=== PATIENT | male | born 1960 | race Caucasian/White ===

== ENCOUNTER 2024-09-17 20:10 | Inpatient (IN) ==
[2024-09-17] MEDS: HYDROmorphone INJ 1 MG/ML SYRINGE IV STA (20:32)
[2024-09-17] MEDS: diphenhydrAMINE 50 MG/ML VIAL IV STA (20:32)
[2024-09-17] MEDS: ONDANSETRON INJ 2 MG/ML 2 ML VIAL IV STA (20:32)
[2024-09-17] MEDS: SODIUM CHLORIDE 0.9% 500 ML IV STA (20:35)
--- NOTE | 2024-09-17 20:36 | Emergency Department Note ---
Impression & Plan Diffuse abdominal pain, Diverticulitis, Acute urinary retention, Leukocytosis ED Provider Note NAME: KISHAN GRANT AGE: 64 SEX: M : 1960 ARRIVES VIA: Walk-In INFORMANT: [Patient] ED PROVIDER(S): [Rafy Bryant MD] CHIEF COMPLAINT: Abdominal pain HISTORY OF PRESENT ILLNESS: The patient is a 64-year-old male who states that he had his first chemotherapy 2 days ago. This morning, at 3 AM, 18 hours ago, he awoke with abdominal pain that has been persistent all day. It hurts to move or take a breath. No fever. No vomiting. He cannot recall having pain like this previously. There has been no trauma. PMHx/PSHx/Social Hx: See Below PHYSICAL EXAM: GENERAL: Patient is in moderate distress from pain. HEENT: No acute trauma, normocephalic atraumatic, mucous membranes moist, no nasal congestion. NECK: No stridor, no adenopathy, no meningismus, trachea is midline. LUNGS: Clear to auscultation bilaterally, no wheeze, no rhonchi, breath sounds equal. Taking shallow breaths, increased respiratory rate. HEART: Without murmurs gallops or rubs, regular rate and rhythm. ABDOMEN: Firm abdomen that is markedly tender diffusely. No distention. EXTREMITIES: No cyanosis, full range of motion of all the joints without pain or difficulty. NEUROLOGIC: Oriented x 3, no acute motor or sensory deficits, no focal weakness. SKIN: No jaundice, no diaphoresis. DIFFERENTIAL DIAGNOSIS: Peritonitis, bowel perforation, bowel obstruction, chemotherapy reaction, bowel ischemia, among others. EMERGENCY DEPARTMENT PROCEDURES: MEDICAL DECISION MAKING: There is a significant leukocytosis with a white blood cell count of 22,000. This of course could be consistent with infection. There was a normal hemoglobin and platelet count. No coagulopathy. No acute renal failure. Lactic acid level was elevated at 2.9, this could be consistent with dehydration or potentially, bowel ischemia. No concerning liver enzyme elevation. ECG showed a sinus rhythm, no ST elevation. Cardiac enzyme testing x 1 is slightly elevated. This troponin elevation could be secondary to cardiac injury or potentially mismatch given his presentation. No evidence for pancreatitis. Urinalysis did not show findings of infection. Chest x-ray did not show free air or pneumonia. Abdominal and pelvis CT shows diverticulitis with a markedly distended bladder. No bowel perforation, no bowel obstruction. On exam, the patient was quite uncomfortable. Patient was aggressively managed. The nursing staff called me to see him straightaway once he was placed in the room. Patient received IV Zosyn as antibiotic therapy. He was given IV saline for hydration. He received IV Zofran for nausea. He was given IV Dilaudid for pain control. He received IV Benadryl. Given the bladder distention, a Tong catheter was placed. The patient did feel some improvement with the Tong catheter placement. He still had discomfort across the abdomen but was certainly more comfortable. The patient requires a hospital stay. He has diverticulitis, he has a very high white blood cell count, he was retaining urine and seems quite uncomfortable. Admission with IV antibiotic therapy is warranted. I spoke with the patient and case management, the on-call hospitalist was consulted. Prior/Outside records/notes reviewed: None ECG per my interpretation: Indication was abdominal pain. The ECG shows a normal sinus rhythm with a rate of 80. There is diffuse artifact. There is no ST elevation, no PVCs, the QTc is 431. Continuous Cardiac Monitoring per my interpretation: An order was placed for continuous cardiac monitoring. The monitor shows a rate of 89 with normal sinus rhythm. Imaging/x-ray results per my interpretation: Chest x-ray does not show free air or pneumonia. Chronic Medical/Social conditions affecting care: On chemotherapy. Care/Management discussed with: Case management, the on-call hospitalist. Level of care consideration(s): After review of the information above and other included data: --I believe the patient requires escalation of care to admission DISPOSITION: Admission Past Med/Surg History Problem List (Updated 09/18/24 @ 12:42 by Rafy Bryant MD) Leukocytosis (Acute) Acute urinary retention (Acute) Diverticulitis (Acute) Diffuse abdominal pain (Acute) Urinary retention Acute diverticulitis Prediabetes HLD (hyperlipidemia) Adenocarcinoma of lung Chronic bronchitis COPD with emphysema Left upper lobe pulmonary nodule LungRADS 4B, 2.1 cm spiculated Medical History ASCVD (arteriosclerotic cardiovascular disease) mild-mod coronary artery calcifications seen on PET imaging 07/2024 Prediabetes Adenocarcinoma of lung 07/15/24 COPD with emphysema Hx of chronic bronchitis Blood pressure elevated without history of HTN Hx History of alcohol abuse Surgical History (Updated 08/24/24 @ 16:56 by Kelsie Dubose RN) Port-A-Cath in place (08/24/24) Insertion of Access Port with Fluoroscopy(Not Applicable) - Kishan Valle DO, FACS History of bronchoscopy bronchoscopy, EBUS 07/13/24; GA: MAC#3, ETT#8.5, Gr View 1 Hx of colonoscopy 2014 History of tympanoplasty of right ear Vasectomy status History of surgery on lower extremity metal romelia in left leg Family History Mother Breast cancer Grandmother (Paternal) Myocardial infarction Father Diabetes Heart disease Other Colorectal cancer Denies family history of Ovarian cancer Prostate cancer Social History Smoking Status: Former smoker Tobacco Type: Cigarettes Age Started Using Tobacco: 12; Age Quit Using Tobacco: 64; packs per day: 1; Second Hand Exposure: Yes (hx); Do You Dip or Chew Tobacco: Yes; Tobacco Cessation Education Requested by Patient: No Hx Alcohol Use: No Hx Substance Use: Yes Non-Prescribed Medications: Marijuana Preferred Language: Yakut Communication Ability: Effective Visual Impairment: No Limitations Hearing Ability: Hard of Hearing 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 Required: No Beliefs That Will Affect Care: None marital status: Current Living Situation: Alone current occupational status: retired How many Children do You have: 6 Other Information That Helps Us Care for You: No Feels Safe at Home: Yes Safety Concerns: Feels Safe At This Time Diet: regular Diet Comment: regular caffeine: Yes during the past year weight has: remained stable Dental Care, Regularly: No Physical Activity Frequency: Daily Seatbelt Use: always Sunscreen Use: Yes Assistive Devices: Denture - Upper, Denture - Lower and Glasses Allergies Allergies Allergy/AdvReac Type Severity Reaction Status Date / Time strawberry Allergy Mild Rash Verified 09/06/24 13:08 Iodinated Contrast Media AdvReac Intermediate Nausea Verified 09/06/24 13:08 codeine AdvReac Unknown "Sour Verified 09/06/24 13:08 stomach" Home Meds Home Medications Medication Instructions Recorded Confirmed No Known Home Medications 08/17/24 09/17/24 Results & Data (ED) Vital Signs Vital Signs - 24 hr 09/17/24 20:11 09/17/24 20:25 09/17/24 20:27 Temperature 37.1 C Temperature Source Oral Pulse Rate 89 Pulse Rate from SpO2 Sensor Pulse Rhythm Regular Pulse Strength Normal Respiratory Rate 22 Respiratory Effort / Characteristics Non-Labored Spontaneous Respiratory Depth Normal Respiratory Pattern Regular Blood Pressure 185/109 H 194/124 H Blood Pressure Mean 134 149 Blood Pressure Position Sitting Pulse Oximetry 94 93 Oxygen Delivery Method Room Air Room Air Sepsis Recent Fever Within 48 Hours No Sepsis New/Unexplained Change in Mental Status N/A Sepsis Action Taken by Nursing No Action Required 09/17/24 20:30 09/17/24 20:30 09/17/24 21:00 Temperature Temperature Source Pulse Rate 93 H 81 Pulse Rate from SpO2 Sensor 85 81 Pulse Rhythm Pulse Strength Respiratory Rate 41 H 25 H Respiratory Effort / Characteristics Respiratory Depth Respiratory Pattern Blood Pressure 205/134 H Blood Pressure Mean 184 Blood Pressure Position Pulse Oximetry 94 90 Oxygen Delivery Method Sepsis Recent Fever Within 48 Hours Sepsis New/Unexplained Change in Mental Status Sepsis Action Taken by Nursing 09/17/24 21:00 09/17/24 21:00 09/17/24 21:00 Temperature Temperature Source Pulse Rate Pulse Rate from SpO2 Sensor Pulse Rhythm Pulse Strength Respiratory Rate Respiratory Effort / Characteristics Respiratory Depth Respiratory Pattern Blood Pressure 154/101 H 154/101 H 154/101 H Blood Pressure Mean 120 120 120 Blood Pressure Position Pulse Oximetry Oxygen Delivery Method Sepsis Recent Fever Within 48 Hours Sepsis New/Unexplained Change in Mental Status Sepsis Action Taken by Nursing 09/17/24 21:00 09/17/24 21:00 09/17/24 21:27 Temperature Temperature Source Pulse Rate 72 Pulse Rate from SpO2 Sensor 73 Pulse Rhythm Pulse Strength Respiratory Rate 22 Respiratory Effort / Characteristics Respiratory Depth Respiratory Pattern Blood Pressure 154/101 H 154/101 H Blood Pressure Mean 120 120 Blood Pressure Position Pulse Oximetry 97 Oxygen Delivery Method Sepsis Recent Fever Within 48 Hours Sepsis New/Unexplained Change in Mental Status Sepsis Action Taken by Nursing 09/17/24 21:30 09/17/24 21:30 09/17/24 21:57 Temperature Temperature Source Pulse Rate 95 H Pulse Rate from SpO2 Sensor Pulse Rhythm Pulse Strength Respiratory Rate 36 H 32 H Respiratory Effort / Characteristics Respiratory Depth Respiratory Pattern Blood Pressure 141/97 H 141/97 H Blood Pressure Mean 117 117 Blood Pressure Position Pulse Oximetry Oxygen Delivery Method Sepsis Recent Fever Within 48 Hours Sepsis New/Unexplained Change in Mental Status Sepsis Action Taken by Nursing 09/17/24 22:21 Temperature Temperature Source Pulse Rate 86 Pulse Rate from SpO2 Sensor 86 Pulse Rhythm Pulse Strength Respiratory Rate 25 H Respiratory Effort / Characteristics Respiratory Depth Respiratory Pattern Blood Pressure Blood Pressure Mean Blood Pressure Position Pulse Oximetry 96 Oxygen Delivery Method Sepsis Recent Fever Within 48 Hours Sepsis New/Unexplained Change in Mental Status Sepsis Action Taken by Prison Medications Current Medication List: was personally reviewed by me Laboratory Data Attestation: I reviewed the patient's lab results. 09/18/24 09:02 09/18/24 09:02 Lab Results 09/17/24 09/17/24 09/17/24 Range/Units 20:21 20:33 21:06 WBC 22.46 H (4.8-10.8) K/ul RBC 5.51 (4.70-6.10) M/uL Hgb 16.6 (14.0-18.0) g/dl Hct 49.7 (42.0-52.0) % MCV 90.2 (80.0-100.0) fL MCH 30.1 (25.0-34.0) pg MCHC 33.4 (32.0-36.0) g/dL RDW Std Deviation 42.5 (36.4-46.3) fL RDW Coeff of Sindhu 13.0 (11.5-14.5) % Plt Count 304 (130-400) K/uL MPV 10.2 (9.4-12.4) fL Immature Gran % (Auto) 0.5 % Neut % (Auto) 94.4 % Lymph % (Auto) 4.1 % Appling % (Auto) 0.8 % Eos % (Auto) 0.0 % Baso % (Auto) 0.2 % Neut # (Auto) 21.21 H (1.40-6.50) K/uL Lymph # (Auto) 0.91 L (1.20-3.40) K/uL Appling # (Auto) 0.18 (0.11-0.59) K/uL Eos # (Auto) 0.00 (0.00-0.50) K/uL Baso # (Auto) 0.04 (0.00-0.20) K/uL Immature Gran # (Auto) 0.12 (0.01-0.20) K/uL Toxic Vacuolation 1+ PT 10.4 (9.0-12.0) Seconds INR 1.0 (0.9-1.1) APTT 22 (21-31) Seconds PTT Ratio 0.8 Sodium 137 (136-145) mmol/L Potassium 4.2 (3.5-5.1) mmol/L Chloride 100 (98-107) mmol/L Carbon Dioxide 25 (21-32) mmol/L Anion Gap 12 H (3-11) BUN 23 (6-23) mg/dl Creatinine 0.90 (0.6-1.4) mg/dl Est Cr Clr Drug Dosing Not Reportable eGFR 94.19 BUN/Creatinine Ratio 25.6 H (10-20) Glucose 133 H (70-99(Fasting)) mg/dl Lactate 2.9 H* (0.4-2.0) mmol/L Calcium 9.0 (8.6-10.3) mg/dl Total Bilirubin 0.9 (0.2-1.0) mg/dl AST 12 L (13-39) U/L ALT 15 (7-52) U/L Alkaline Phosphatase 56 (34-104) U/L Troponin I High Sens 47.5 H (0-20) pg/ml Total Protein 7.6 (6.0-8.3) gm/dl Albumin 4.3 (3.4-5.0) gm/dl Globulin 3.3 (2.5-4.0) gm/dl Albumin/Globulin Ratio 1.3 (0.9-2) Lipase 10 L (11-82) U/L Urine Color Yellow Urine Appearance Clear (Clear) Urine pH 5.5 (4.5-7.5) Ur Specific Rolfe 1.019 (1.000-1.030) Urine Protein Trace H (Negative) Urine Glucose (UA) Negative (Negative) Urine Ketones Negative (Negative) Urine Blood Negative (Negative) Urine Nitrite Negative (Negative) Urine Bilirubin Negative (Negative) Urine Urobilinogen Negative (Negative) Ur Leukocyte Esterase Negative (Negative) Urine WBC (Auto) 0-5 (0-5) /hpf Urine RBC (Auto) 0-2 (0-2) /hpf U Hyaline Cast (Auto) 0-2 (0-2) /lpf U Epithel Cells (Auto) 0-2 (0-2) /hpf Urine Bacteria (Auto) None Seen (None Seen) Urine Comment 09/17/24 Range/Units 22:13 WBC (4.8-10.8) K/ul RBC (4.70-6.10) M/uL Hgb (14.0-18.0) g/dl Hct (42.0-52.0) % MCV (80.0-100.0) fL MCH (25.0-34.0) pg MCHC (32.0-36.0) g/dL RDW Std Deviation (36.4-46.3) fL RDW Coeff of Sindhu (11.5-14.5) % Plt Count (130-400) K/uL MPV (9.4-12.4) fL Immature Gran % (Auto) % Neut % (Auto) % Lymph % (Auto) % Appling % (Auto) % Eos % (Auto) % Baso % (Auto) % Neut # (Auto) (1.40-6.50) K/uL Lymph # (Auto) (1.20-3.40) K/uL Appling # (Auto) (0.11-0.59) K/uL Eos # (Auto) (0.00-0.50) K/uL Baso # (Auto) (0.00-0.20) K/uL Immature Gran # (Auto) (0.01-0.20) K/uL Toxic Vacuolation PT (9.0-12.0) Seconds INR (0.9-1.1) APTT (21-31) Seconds PTT Ratio Sodium (136-145) mmol/L Potassium (3.5-5.1) mmol/L Chloride (98-107) mmol/L Carbon Dioxide (21-32) mmol/L Anion Gap (3-11) BUN (6-23) mg/dl Creatinine (0.6-1.4) mg/dl Est Cr Clr Drug Dosing eGFR BUN/Creatinine Ratio (10-20) Glucose (70-99(Fasting)) mg/dl Lactate (0.4-2.0) mmol/L Calcium (8.6-10.3) mg/dl Total Bilirubin (0.2-1.0) mg/dl AST (13-39) U/L ALT (7-52) U/L Alkaline Phosphatase (34-104) U/L Troponin I High Sens 52.9 H* (0-20) pg/ml Total Protein (6.0-8.3) gm/dl Albumin (3.4-5.0) gm/dl Globulin (2.5-4.0) gm/dl Albumin/Globulin Ratio (0.9-2) Lipase (11-82) U/L Urine Color Urine Appearance (Clear) Urine pH (4.5-7.5) Ur Specific Rolfe (1.000-1.030) Urine Protein (Negative) Urine Glucose (UA) (Negative) Urine Ketones (Negative) Urine Blood (Negative) Urine Nitrite (Negative) Urine Bilirubin (Negative) Urine Urobilinogen (Negative) Ur Leukocyte Esterase (Negative) Urine WBC (Auto) (0-5) /hpf Urine RBC (Auto) (0-2) /hpf U Hyaline Cast (Auto) (0-2) /lpf U Epithel Cells (Auto) (0-2) /hpf Urine Bacteria (Auto) (None Seen) Urine Comment Administered Medications Enoxaparin Sodium (Enoxaparin Inj 40 Mg/0.4 Ml Syr) 40 mg SQ QAM ANAIS Stop: 10/18/24 08:59 Last Admin: 09/18/24 10:27 Dose: 40 mg Documented By: MELODY Hydromorphone HCl (Hydromorphone Inj 0.5 Mg/0.5 Ml Syr) 0.5 mg IV Q3H PRN PRN Reason: Pain (6,7,8,9,10) Stop: 10/01/24 23:44 Last Admin: 09/18/24 07:47 Dose: 0.5 mg Documented By: Admin: 09/18/24 03:24 Dose: 0.5 mg Documented By: HAVEN Piperacillin Sod/Tazobactam Sod (Zosyn) 4.5 gm in 100 mls @ 25 mls/hr IV Q8H [facility]; Protocol Stop: 09/28/24 03:59 Last Admin: 09/18/24 11:41 Dose: 25 mls/hr Documented By: Infusion: 09/18/24 07:43 Dose: Infused Documented By: Admin: 09/18/24 03:25 Dose: 25 mls/hr Documented By: HAVEN Sodium Chloride (Nss) 1,000 mls @ 75 mls/hr IV .[id number] ANAIS Stop: 09/19/24 11:29 Last Admin: 09/18/24 11:41 Dose: 75 mls/hr Documented By: MELDOY Tamsulosin HCl (Tamsulosin Hcl 0.4 Mg Cap) 0.4 mg PO QAM ANAIS Stop: 10/18/24 08:59 Last Admin: 09/18/24 10:28 Dose: 0.4 mg Documented By: MELODY Discontinued Medications Diphenhydramine HCl (Diphenhydramine 50 Mg/Ml Vial) 25 mg IV NOW STA Stop: 09/17/24 20:27 Last Admin: 09/17/24 20:32 Dose: 25 mg Documented By: WEST Hydromorphone HCl (Hydromorphone Inj 1 Mg/Ml Syringe) 1 mg IV NOW STA Stop: 09/17/24 20:27 Last Admin: 09/17/24 20:32 Dose: 1 mg Documented By: WEST Hydromorphone HCl (Hydromorphone Inj 0.5 Mg/0.5 Ml Syr) 0.5 mg IV Q15M PRN PRN Reason: Pain Stop: 10/01/24 20:25 Last Admin: 09/17/24 23:23 Dose: 0.5 mg Documented By: Admin: 09/17/24 21:47 Dose: 0.5 mg Documented By: WEST Sodium Chloride (Nss) 500 mls @ 999 mls/hr IV .Q31M STA Stop: 09/17/24 20:56 Last Infusion: 09/17/24 21:28 Dose: Infused Documented By: Admin: 09/17/24 20:35 Dose: 999 mls/hr Documented By: WEST Piperacillin Sod/Tazobactam Sod (Zosyn) 4.5 gm in 100 mls @ 200 mls/hr IV NOW ONE Stop: 09/17/24 21:30 Last Infusion: 09/17/24 23:07 Dose: Infused Documented By: Admin: 09/17/24 22:03 Dose: 200 mls/hr Documented By: WEST Sodium Chloride (Nss) 1,000 mls @ 999 mls/hr IV .Q1H1M ONE Stop: 09/17/24 23:15 Last Infusion: 09/17/24 23:47 Dose: Infused Documented By: Admin: 09/17/24 22:27 Dose: 999 mls/hr Documented By: WEST Lactated Ringer's (Lr) 1,000 mls @ 125 mls/hr IV .Q8H ANAIS Stop: 09/19/24 00:14 Last Infusion: 09/18/24 11:45 Dose: Infused Documented By: Admin: 09/18/24 07:47 Dose: 125 mls/hr Documented By: Infusion: 09/18/24 07:47 Dose: Infused Documented By: Admin: 09/18/24 00:46 Dose: 125 mls/hr Documented By: HAVEN Acetaminophen (Ofirmev) 1,000 mg in 100 mls @ 400 mls/hr IV Q8H PRN PRN Reason: Pain or Fever Stop: 09/20/24 23:44 Last Infusion: 09/18/24 11:01 Dose: Infused Documented By: Admin: 09/18/24 10:38 Dose: 400 mls/hr Documented By: MELODY Lactated Ringer's (Lr) 1,000 mls @ 75 mls/hr IV .[id number] ANAIS Stop: 09/19/24 11:24 Last Admin: 09/18/24 11:45 Dose: Not Given Documented By: MELODY Ioversol (Optiray 320 100ml) 93 ml IV ONCE ONE Stop: 09/17/24 21:37 Last Admin: 09/17/24 21:38 Dose: 93 ml Documented By: KATHY Lidocaine HCl (Lidocaine 2% Jelly 5 Ml Tube) 5 ml EXT NOW ONE Stop: 09/17/24 21:49 Last Admin: 09/17/24 22:03 Dose: 5 ml Documented By: WEST Ondansetron HCl (Ondansetron Inj 2 Mg/Ml 2 Ml Vial) 4 mg IV NOW STA Stop: 09/17/24 20:27 Last Admin: 09/17/24 20:32 Dose: 4 mg Documented By: WEST Discharge Plan Visit Data Chief Complaint: Abdominal Pain Stated Complaint: FIRST ROUND OF CHEMO,ABD PAIN,COLD SWEATS ED Provider: Rafy Bryant Discharge Problem: Diffuse abdominal pain, Diverticulitis, Acute urinary retention, Leukocytosis Patient Disposition: Admitted As Inpatient Condition: Fair Discharge Instructions Interventions: ED Discharge Assessment Last Done: 09/17/24 23:17 Discharge Problem: Leukocytosis Qualifiers: Leukocytosis type: unspecified Qualified Code(s): D72.829 - Elevated white blood cell count, unspecified
[2024-09-17 21:03] LABS: Appearance Urine Clear (Clear); Bacteria Urine Automated None Seen (None Seen); Bilirubin Urine Negative (Negative); Blood Urine Negative (Negative); Cast Urine Automated 0-2 /lpf (0-2); Color Urine Yellow; Epithelial Cell Urine Auto 0-2 /hpf (0-2); Glucose Urine UA Negative (Negative); Ketones Urine Negative (Negative); Leukocyte Esterase Urine Negative (Negative); Nitrite Urine Negative (Negative); Protein Urine Trace (Negative); RBC Urine Automated 0-2 /hpf (0-2); Specific Gravity Urine 1.019 (1.000-1.030); Urobilinogen Urine Negative (Negative); WBC Urine Automated 0-5 /hpf (0-5); pH Urine 5.5 (4.5-7.5)
[2024-09-17 21:05] LABS: Hematocrit (blood only) 49.7 % (42.0-52.0); Hemoglobin 16.6 g/dl (14.0-18.0); Mean Corpuscular Hemoglobin 30.1 pg (25.0-34.0); Mean Corpuscular Hgb Conc 33.4 g/dL (32.0-36.0); Mean Corpuscular Volume 90.2 fL (80.0-100.0); Mean Platelet Volume 10.2 fL (9.4-12.4); Platelet Count 304 K/uL (130-400); RDW Standard Deviation 42.5 fL (36.4-46.3); Red Blood Count 5.51 M/uL (4.70-6.10); White Blood Count 22.46 K/ul (4.8-10.8)
[2024-09-17 21:15] LABS: Alanine Aminotransferase 15 U/L (7-52); Albumin Globulin Ratio 1.3 (0.9-2); Albumin Level 4.3 gm/dl (3.4-5.0); Alkaline Phosphatase 56 U/L (34-104); Anion Gap 12 (3-11); BUN Creatinine Ratio 25.6 (10-20); Blood Urea Nitrogen 23 mg/dl (6-23); Carbon Dioxide 25 mmol/L (21-32); Chloride 100 mmol/L (98-107); Globulin 3.3 gm/dl (2.5-4.0); Glucose 133 mg/dl (70-99(Fasting)); Lipase 10 U/L (11-82); Sodium 137 mmol/L (136-145); Total Protein 7.6 gm/dl (6.0-8.3); Troponin I High Sensitivity 47.5 pg/ml (0-20)
[2024-09-17 21:16] LABS: Partial Thromboplastin Ratio 0.8; Partial Thromboplastin Time 22 Seconds (21-31); Prothrombin Time 10.4 Seconds (9.0-12.0)
[2024-09-17 21:22] LABS: Bilirubin,Total 0.9 mg/dl (0.2-1.0)
[2024-09-17 21:30] LABS: Aspartate Aminotransferase 12 U/L (13-39); Potassium 4.2 mmol/L (3.5-5.1)
[2024-09-17 21:31] LABS: Basophils # (auto) 0.04 K/uL (0.00-0.20); Basophils % (auto) 0.2 %; Immature Granulocytes # (auto) 0.12 K/uL (0.01-0.20); Immature Granulocytes % (auto) 0.5 %; Lymphocytes # (auto) 0.91 K/uL (1.20-3.40); Lymphocytes % (auto) 4.1 %; Monocytes # (auto) 0.18 K/uL (0.11-0.59); Monocytes % (auto) 0.8 %; Neutrophils # (auto) 21.21 K/uL (1.40-6.50); Neutrophils % (auto) 94.4 %; Toxic Vacuolation 1+
[2024-09-17] MEDS: OPTIRAY 320 100ml IV ONE (21:38)
[2024-09-17] MEDS: HYDROmorphone INJ 0.5 MG/0.5 ML SYR IV PRN (21:47)
--- NOTE | 2024-09-17 21:49 | XRay Report ---
Exam(s): XR CXR 1 VIEW EXAM: XR Chest, 1 View CLINICAL HISTORY: Abdominal Pain. TECHNIQUE: Frontal view of the chest. COMPARISON: Chest radiograph 08/24/2024 FINDINGS: Lungs: Low lung volumes accentuate pulmonary markings. Bilateral airspace opacities are present. Pleural space: Small bilateral pleural effusions. No pneumothorax. Heart: Cardiomegaly. Mediastinum: Unremarkable. Normal mediastinal contour. Bones/joints: There are degenerative changes of the spine. No acute fracture. Other findings: Stable right Infusaport. IMPRESSION: 1. Low lung volumes accentuate pulmonary markings. Bilateral airspace opacities may represent atelectasis, pulmonary edema or atypical infection. 2. Small bilateral pleural effusions. 3. Cardiomegaly. Electronically signed by: Nishi Handy MD 09/17/24 21:48 PM
--- NOTE | 2024-09-17 22:02 | CT Scan Report ---
CT of the abdomen pelvis with contrast Technique: Postcontrast axial images of the abdomen pelvis. Coronal and sagittal reformatted images made available for review No comparison Findings: Small bilateral pleural effusions right greater than left 1.2 cm left renal cyst. Solid abdominal organs unremarkable in appearance. 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 Wall thickening and inflammatory changes involving a short segment of sigmoid colon in the left Andrzej pelvis. No pericolonic fluid collections identified on this exam. Marked distention of the urinary bladder. 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
[2024-09-17] MEDS: LIDOCAINE 2% JELLY 5 ML TUBE EXT ONE (22:03)
[2024-09-17] MEDS: PIPERACILLIN/TAZOBACTAM 4.5 GM/100 ML BAG IV ONE (22:03)
[2024-09-17] MEDS: SODIUM CHLORIDE 0.9% 1,000 ML IV ONE (22:27)
--- NOTE | 2024-09-17 22:27 | History & Physical Report ---
Date of Service September 17, 2024 Assessment & Plan (1) Acute diverticulitis: (2) Adenocarcinoma of lung: (3) Urinary retention: Plan 64 year old male presents to the ER with abdominal pain #Acute diverticulitis No colonoscopy for 15 years therefore should follow up for this in 4-6 weeks NPO, IV Zosyn, IV fluids Acetaminophen 1st line for pain, Dilaudid 2nd line #Acute urinary retention CT taken after voiding in the ER, 900ml retention in sherman Continue sherman catheter, tamsulosin 0.4mg PO QAM Follow up with urology as outpatient for trial without catheter VTE Prophylaxis - Lovenox 40mg SQ daily Disposition - admit to med/surg Admission and Anticipated Discharge Date Admission Date: September 17, 2024 History of Present Illness Chief Complaint: Abdominal pain Primary Care Provider: DO Jorge Zuniga Willard is a 64 year old male with pete adenocarcinoma on chemotherapy who presents to the ER with abdominal pain. Symptoms started 3:30am yesterday morning with lower abdominal pain mostly on the left side. No radiation. Severity currently 5-6/10. 10/10 on arrival to the ER. Associated diaphoresis today. No nausea or vomiting. He has had no prior episodes of diverticulitis previously. Last colonoscopy 15 years ago. He is currently on chemotherapy for his lung adenocarcinoma although unclear what the medications are. [facility] is under [facility]. Allergies Allergy/AdvReac Type Severity Reaction Status Date / Time strawberry Allergy Mild Rash Verified 09/06/24 13:08 Iodinated Contrast Media AdvReac Intermediate Nausea Verified 09/06/24 13:08 codeine AdvReac Unknown "Sour Verified 09/06/24 13:08 stomach" Home Medications Medication Instructions Recorded Confirmed Type No Known Home Medications 08/17/24 09/17/24 History Past Med/Surg History Problem List (Updated 09/17/24 @ 23:08 by Suukmar Guerra MD) Urinary retention Acute diverticulitis Prediabetes HLD (hyperlipidemia) Adenocarcinoma of lung Chronic bronchitis COPD with emphysema Left upper lobe pulmonary nodule LungRADS 4B, 2.1 cm spiculated Medical History (Updated 09/17/24 @ 23:08 by Sukumar Guerra MD) ASCVD (arteriosclerotic cardiovascular disease) mild-mod coronary artery calcifications seen on PET imaging 07/2024 Prediabetes Adenocarcinoma of lung 07/15/24 COPD with emphysema Hx of chronic bronchitis Blood pressure elevated without history of HTN Hx History of alcohol abuse Surgical History (Updated 08/24/24 @ 16:56 by Kelsie Dubose, RN) Port-A-Cath in place (08/24/24) Insertion of Access Port with Fluoroscopy(Not Applicable) - Jorge Valle DO, FACS History of bronchoscopy bronchoscopy, EBUS 07/13/24; GA: MAC#3, ETT#8.5, Gr View 1 Hx of colonoscopy 2014 History of tympanoplasty of right ear Vasectomy status History of surgery on lower extremity metal romelia in left leg Family History Mother Breast cancer Grandmother (Paternal) Myocardial infarction Father Diabetes Heart disease Other Colorectal cancer Denies family history of Ovarian cancer Prostate cancer Social History Smoking Status: Former smoker Tobacco Type: Cigarettes Age Started Using Tobacco: 12; Age Quit Using Tobacco: 64; packs per day: 1; Second Hand Exposure: Yes (hx); Do You Dip or Chew Tobacco: Yes; Tobacco Cessation Education Requested by Patient: No Hx Alcohol Use: No Hx Substance Use: Yes Non-Prescribed Medications: Marijuana Preferred Language: Pashto Communication Ability: Effective Visual Impairment: No Limitations Hearing Ability: Hard of Hearing Business Reporting Developer Required: No Beliefs That Will Affect Care: None marital status: Current Living Situation: Alone current occupational status: retired How many Children do You have: 6 Other Information That Helps Us Care for You: No Feels Safe at Home: Yes Safety Concerns: Feels Safe At This Time Diet: regular Diet Comment: regular caffeine: Yes during the past year weight has: remained stable Dental Care, Regularly: No Physical Activity Frequency: Daily Seatbelt Use: always Sunscreen Use: Yes Assistive Devices: Denture - Upper, Denture - Lower and Glasses Review of Systems Review of Systems: All systems reviewed & are unremarkable except as noted in HPI & below Physical Exam Constitutional: well developed and + acute distress (abdominal pain); + not well nourished Respiratory: normal respiratory effort, lungs clear to auscultation Cardiovascular: Rate/Rhythm: regular rhythm and + tachycardic Heart Sounds: no murmur Extremities: normal capillary refill; no calf tenderness Gastrointestinal (Abdomen): Inspection/Auscultation: abdomen normal to inspection and + abdomen distended Percussion/Palpation: + abdomen tender (generalized), + guarding and abdomen soft; abdomen not rigid Neurologic: moves all extremities and awake; not confused Psychiatric: A+Ox3, euthymic affect Results & Data Results & Data Vital Signs (Past 12 Hours) Vital Signs Temp Pulse Resp BP Pulse Ox O2 Del Method 09/17/24 21:30 36 H 141/97 H 09/17/24 21:30 141/97 H 09/17/24 21:27 72 22 97 09/17/24 21:00 154/101 H 09/17/24 21:00 154/101 H 09/17/24 21:00 154/101 H 09/17/24 21:00 154/101 H 09/17/24 21:00 154/101 H 09/17/24 21:00 81 25 H 90 09/17/24 20:30 205/134 H 09/17/24 20:30 93 H 41 H 94 09/17/24 20:27 93 Room Air 09/17/24 20:25 194/124 H 09/17/24 20:11 37.1 C 89 22 185/109 H 94 Room Air Laboratory Results Abnormal lab results 09/17/24 09/17/24 09/17/24 Range/Units 20:21 20:33 21:06 WBC 22.46 H (4.8-10.8) K/ul Neut # (Auto) 21.21 H (1.40-6.50) K/uL Lymph # (Auto) 0.91 L (1.20-3.40) K/uL Anion Gap 12 H (3-11) BUN/Creatinine Ratio 25.6 H (10-20) Glucose 133 H (70-99(Fasting)) mg/dl Lactate 2.9 H* (0.4-2.0) mmol/L AST 12 L (13-39) U/L Troponin I High Sens 47.5 H (0-20) pg/ml Lipase 10 L (11-82) U/L Urine Protein Trace H (Negative) 09/17/24 Range/Units 22:13 WBC (4.8-10.8) K/ul Neut # (Auto) (1.40-6.50) K/uL Lymph # (Auto) (1.20-3.40) K/uL Anion Gap (3-11) BUN/Creatinine Ratio (10-20) Glucose (70-99(Fasting)) mg/dl Lactate (0.4-2.0) mmol/L AST (13-39) U/L Troponin I High Sens 52.9 H* (0-20) pg/ml Lipase (11-82) U/L Urine Protein (Negative) Diagnostic Findings XR Chest, 1 View CLINICAL HISTORY: Abdominal Pain. TECHNIQUE: Frontal view of the chest. COMPARISON: Chest radiograph 08/24/2024 FINDINGS: Lungs: Low lung volumes accentuate pulmonary markings. Bilateral airspace opacities are present. Pleural space: Small bilateral pleural effusions. No pneumothorax. Heart: Cardiomegaly. Mediastinum: Unremarkable. Normal mediastinal contour. Bones/joints: There are degenerative changes of the spine. No acute fracture. Other findings: Stable right Infusaport. IMPRESSION: 1. Low lung volumes accentuate pulmonary markings. Bilateral airspace opacities may represent atelectasis, pulmonary edema or atypical infection. 2. Small bilateral pleural effusions. 3. Cardiomegaly. CT of the abdomen pelvis with contrast Technique: Postcontrast axial images of the abdomen pelvis. Coronal and sagittal reformatted images made available for review No comparison Findings: Small bilateral pleural effusions right greater than left 1.2 cm left renal cyst. Solid abdominal organs unremarkable in appearance. 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 Wall thickening and inflammatory changes involving a short segment of sigmoid colon in the left Andrzej pelvis. No pericolonic fluid collections identified on this exam. Marked distention of the urinary bladder. 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 Markedly distended urinary bladder Medications Administered ER Medications Given: Normal saline 500ml bolus Diphenhydramine 25mg IV Ondansetron 4mg IV Dilaudid 1mg IV Dilaudid 0.5mg x2 Zosyn 4.5mg IV Normal saline 1000ml bolus ECG Rate (beats per minute): 80 Rhythm: normal sinus Comparison ECG Date: from (July 13, 2024) Change: no significant change Code Status & VTE Plan Code Status Full VTE Prophylaxis Plan VTE Prophylaxis will be ordered: Yes PG Care Time/CCT Total # of Minutes Spent Total Time Spent with Patient: Total time spent is greater than 50% in coordination of care (as documented) at patient's floor/unit and/or counseling patient: Coding Level of Care Code 91409 INT INP/OBS CARE 3/75MIN Diagnoses Acute diverticulitis K57.92 Adenocarcinoma of lung C34.90 Urinary retention R33.9
[2024-09-17] MEDS ORDERED: HYDROmorphone INJ 0.5 MG/0.5 ML SYR IV PRN (23:45)
[2024-09-18] MEDS: LACTATED RINGER'S 1,000 ML IV SCH ×2 (00:46→11:45)
[2024-09-18] MEDS: HYDROmorphone INJ 0.5 MG/0.5 ML SYR IV PRN (03:24)
[2024-09-18] MEDS: PIPERACILLIN/TAZOBACTAM 4.5 GM/100 ML BAG IV SCH (03:25)
[2024-09-18 09:16] LABS: Hematocrit (blood only) 44.4 % (42.0-52.0); Hemoglobin 14.7 g/dl (14.0-18.0); Mean Corpuscular Hemoglobin 30.2 pg (25.0-34.0); Mean Corpuscular Hgb Conc 33.1 g/dL (32.0-36.0); Mean Corpuscular Volume 91.2 fL (80.0-100.0); Platelet Count 192 K/uL (130-400); RDW Coefficient of Variation 13.2 % (11.5-14.5); RDW Standard Deviation 43.5 fL (36.4-46.3); Red Blood Count 4.87 M/uL (4.70-6.10); White Blood Count 17.66 K/ul (4.8-10.8)
[2024-09-18 09:44] LABS: Basophils # (auto) 0.04 K/uL (0.00-0.20); Basophils % (auto) 0.2 %; Immature Granulocytes % (auto) 0.6 %; Lymphocytes # (auto) 0.83 K/uL (1.20-3.40); Lymphocytes % (auto) 4.7 %; Monocytes # (auto) 0.04 K/uL (0.11-0.59); Monocytes % (auto) 0.2 %; Neutrophils # (auto) 16.65 K/uL (1.40-6.50); Neutrophils % (auto) 94.3 %; Toxic Vacuolation 1+
[2024-09-18 09:52] LABS: BUN Creatinine Ratio 17.8 (10-20); C Reactive Protein 23.59 mg/dl (0-0.5); Calcium 8.5 mg/dl (8.6-10.3); Creatinine Clr Calc Pharmacy 59.7 ml/min; Magnesium 1.9 mg/dl (1.7-2.4); Potassium 5.1 mmol/L (3.5-5.1); Troponin I High Sensitivity 39.9 pg/ml (0-20)
[2024-09-18] MEDS: ENOXAPARIN INJ 40 MG/0.4 ML SYR SQ SCH (10:27)
[2024-09-18] MEDS: TAMSULOSIN HCL 0.4 MG CAP PO SCH (10:28)
[2024-09-18] MEDS: ACETAMINOPHEN 1,000 MG/100 ML VIAL IV PRN (10:38)
--- NOTE | 2024-09-18 11:07 | Hospitalist Progress Note ---
Date of Service September 18, 2024 Assessment & Plan (1) Acute diverticulitis: (2) Adenocarcinoma of lung: (3) Urinary retention: Plan 64 year old male with past medical history of lung adenocarcinoma started on chemotherapy recently, prediabetes, history of tobacco use disorder quit in July 2024 presents to the ED with lower abdominal pain, CT scan showing sigmoid diverticulitis, went into urinary retention and required Sherman catheter on admission. #Sepsis secondary to diverticulitis, present on admission #Acute diverticulitis No colonoscopy for 15 years therefore should follow up for this in 4-6 weeks with PCP for referral to GI White count improving Lactic acid levels improving Continue IV fluid hydration Continue IV Zosyn (day 1) Analgesia with Tylenol as needed and Dilaudid IV as needed for severe pain Start full liquid diet, advance as tolerated #Elevated troponin Likely demand ischemia in setting of sepsis Troponin improving EKG without any ischemic changes Patient without any chest pain or shortness of breath Check 2D echo for any wall motion abnormality #Acute urinary retention CT taken after voiding in the ER, 900ml retention in sherman Continue sherman catheter, tamsulosin 0.4mg PO QAM Follow up with urology as outpatient for trial without catheter #Prediabetes A1c in July 2024 is 6.1 Check repeat A1c Outpatient follow-up with PCP on discharge CODE STATUS: Full code DVT prophylaxis: Lovenox 40 mg subcutaneous daily Disposition: Based on clinical improvement, PT/OT recommendations, improvement in white count likely in the next 48 to 72 hours Care plan discussed with patient, nursing staff and donavan Guerra updated at bedside Admission and Anticipated Discharge Date Admission Date: September 17, 2024 Subjective Patient seen and examined H&P reviewed Labs reviewed Radiology reviewed Daughter Mari at bedside Patient states he recently started chemotherapy and received first round of chemotherapy few days ago Since then experiencing lower abdominal pain, denies any nausea, vomiting or diarrhea. Denies any fever or chills Denies any chest pain or shortness of breath. Patient states he quit tobacco smoking in July 2024 and since then has been having a dry cough with clear to white sputum production Physical Exam Physical Exam: General: No acute distress Psych: Awake and alert HEENT: Anicteric sclera, moist oral mucosa CVS: Regular rate and rhythm Lungs: Bilateral air entry, no wheezing noted Abdomen: Soft, mild distention, tender to palpation lower abdomen, no rebound, no guarding Ext: No lower extremity edema, no calf tenderness Neuro: No focal motor deficits noted : Indwelling Sherman catheter noted Results & Data Results & Data Vital Signs (Past 12 Hours) Vital Signs Temp Pulse Resp BP Pulse Ox O2 Del Method O2 Flow Rate 09/18/24 09:11 Nasal Cannula 2 09/18/24 07:44 37 C 70 18 151/87 H 97 Room Air 09/18/24 00:13 Nasal Cannula 2 09/18/24 00:13 36.7 C 94 H 20 145/92 H 96 Nasal Cannula 2 09/18/24 00:12 145/92 H 09/18/24 00:06 36.7 C 20 178/108 H 96 Nasal Cannula 2 Laboratory Results 09/18/24 09/18/24 09/17/24 09:47 09:02 22:13 WBC 17.66 H RBC 4.87 Hgb 14.7 Hct 44.4 MCV 91.2 MCH 30.2 MCHC 33.1 RDW Std Deviation 43.5 RDW Coeff of Sindhu 13.2 Plt Count 192 MPV 10.0 Immature Gran % (Auto) 0.6 Neut % (Auto) 94.3 Lymph % (Auto) 4.7 [place] % (Auto) 0.2 Eos % (Auto) 0.0 Baso % (Auto) 0.2 Neut # (Auto) 16.65 H Lymph # (Auto) 0.83 L [place] # (Auto) 0.04 L Eos # (Auto) 0.00 Baso # (Auto) 0.04 Immature Gran # (Auto) 0.10 Toxic Vacuolation 1+ PT INR APTT PTT Ratio Sodium 133 L Potassium 5.1 D Chloride 98 Carbon Dioxide 31 Anion Gap 4 BUN 19 Creatinine 1.07 Est Cr Clr Drug Dosing 59.7 eGFR 76.53 BUN/Creatinine Ratio 17.8 Glucose 124 H Lactate 1.5 Calcium 8.5 L Magnesium 1.9 Total Bilirubin AST ALT Alkaline Phosphatase Troponin I High Sens 39.9 H D 52.9 H* C-Reactive Protein 23.59 H Total Protein Albumin Globulin Albumin/Globulin Ratio Lipase Urine Color Urine Appearance Urine pH Ur Specific [place] Urine Protein Urine Glucose (UA) Urine Ketones Urine Blood Urine Nitrite Urine Bilirubin Urine Urobilinogen Ur Leukocyte Esterase Urine WBC (Auto) Urine RBC (Auto) U Hyaline Cast (Auto) U Epithel Cells (Auto) Urine Bacteria (Auto) Urine Comment 09/17/24 09/17/24 09/17/24 21:06 20:33 20:21 WBC 22.46 H RBC 5.51 Hgb 16.6 Hct 49.7 MCV 90.2 MCH 30.1 MCHC 33.4 RDW Std Deviation 42.5 RDW Coeff of Sindhu 13.0 Plt Count 304 MPV 10.2 Immature Gran % (Auto) 0.5 Neut % (Auto) 94.4 Lymph % (Auto) 4.1 [place] % (Auto) 0.8 Eos % (Auto) 0.0 Baso % (Auto) 0.2 Neut # (Auto) 21.21 H Lymph # (Auto) 0.91 L [place] # (Auto) 0.18 Eos # (Auto) 0.00 Baso # (Auto) 0.04 Immature Gran # (Auto) 0.12 Toxic Vacuolation 1+ PT 10.4 INR 1.0 APTT 22 PTT Ratio 0.8 Sodium 137 Potassium 4.2 Chloride 100 Carbon Dioxide 25 Anion Gap 12 H BUN 23 Creatinine 0.90 Est Cr Clr Drug Dosing Not Reportable eGFR 94.19 BUN/Creatinine Ratio 25.6 H Glucose 133 H Lactate 2.9 H* Calcium 9.0 Magnesium Total Bilirubin 0.9 AST 12 L ALT 15 Alkaline Phosphatase 56 Troponin I High Sens 47.5 H C-Reactive Protein Total Protein 7.6 Albumin 4.3 Globulin 3.3 Albumin/Globulin Ratio 1.3 Lipase 10 L Urine Color Yellow Urine Appearance Clear Urine pH 5.5 Ur Specific [place] 1.019 Urine Protein Trace H Urine Glucose (UA) Negative Urine Ketones Negative Urine Blood Negative Urine Nitrite Negative Urine Bilirubin Negative Urine Urobilinogen Negative Ur Leukocyte Esterase Negative Urine WBC (Auto) 0-5 Urine RBC (Auto) 0-2 U Hyaline Cast (Auto) 0-2 U Epithel Cells (Auto) 0-2 Urine Bacteria (Auto) None Seen Urine Comment Diagnostic Findings Abdomen/Pelvis CT 09/17/24 20:27 CT of the abdomen pelvis with contrast Technique: Postcontrast axial images of the abdomen pelvis. Coronal and sagittal reformatted images made available for review No comparison Findings: Small bilateral pleural effusions right greater than left 1.2 cm left renal cyst. Solid abdominal organs unremarkable in appearance. 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 Wall thickening and inflammatory changes involving a short segment of sigmoid colon in the left Andrzej pelvis. No pericolonic fluid collections identified on this exam. Marked distention of the urinary bladder. 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 TECHNIQUE: Frontal view of the chest. COMPARISON: Chest radiograph 08/24/2024 FINDINGS: Lungs: Low lung volumes accentuate pulmonary markings. Bilateral airspace opacities are present. Pleural space: Small bilateral pleural effusions. No pneumothorax. Heart: Cardiomegaly. Mediastinum: Unremarkable. Normal mediastinal contour. Bones/joints: There are degenerative changes of the spine. No acute fracture. Other findings: Stable right Infusaport. IMPRESSION: 1. Low lung volumes accentuate pulmonary markings. Bilateral airspace opacities may represent atelectasis, pulmonary edema or atypical infection. 2. Small bilateral pleural effusions. 3. Cardiomegaly. Electronically signed by: Nishi Handy MD 09/17/24 21:48 PM PG Care Time/CCT Total # of Minutes Spent Total Time Spent with Patient: Total time spent is greater than 50% in coordination of care (as documented) at patient's floor/unit and/or counseling patient: Coding Level of Care Code 32771 SUB INP/OBS CARE 3/50MIN Diagnoses Acute diverticulitis K57.92 Adenocarcinoma of lung C34.90 Urinary retention R33.9
--- NOTE | 2024-09-18 11:38 | XCELERA ---
[id number]
[2024-09-18] MEDS: SODIUM CHLORIDE 0.9% 1,000 ML IV SCH (11:41)
--- NOTE | 2024-09-18 11:55 | Electrocardiogram Report ---
Test Reason : Blood Pressure : */* mmHG Vent. Rate : 80 BPM Atrial Rate : 80 BPM P-R Int : 122 ms QRS Dur : 86 ms QT Int : 374 ms P-R-T Axes : 46 40 47 degrees QTcB Int : 431 ms Normal sinus rhythm with sinus arrhythmia Normal ECG When compared with ECG of 13-Jul-2024 06:40, Vent. rate has increased by 28 bpm Confirmed by Tavo Barnett ([id number]) on 09/18/2024 11:55:20 AM Referred By: REFERRED SELF Confirmed By: Tavo Barnett
[2024-09-18] MEDS: ONDANSETRON INJ 2 MG/ML 2 ML VIAL IV PRN (15:37)
[2024-09-19 07:42] LABS: BUN Creatinine Ratio 22.9 (10-20); Calcium 8.4 mg/dl (8.6-10.3); Magnesium 1.9 mg/dl (1.7-2.4); Potassium 3.3 mmol/L (3.5-5.1)
[2024-09-19 07:48] LABS: Hematocrit (blood only) 40.3 % (42.0-52.0); Hemoglobin 13.8 g/dl (14.0-18.0); Mean Corpuscular Hemoglobin 30.3 pg (25.0-34.0); Mean Corpuscular Hgb Conc 34.2 g/dL (32.0-36.0); Mean Corpuscular Volume 88.6 fL (80.0-100.0); Mean Platelet Volume 10.7 fL (9.4-12.4); Platelet Count 164 K/uL (130-400); RDW Coefficient of Variation 13.1 % (11.5-14.5); RDW Standard Deviation 42.3 fL (36.4-46.3); Red Blood Count 4.55 M/uL (4.70-6.10); White Blood Count 7.64 K/ul (4.8-10.8)
[2024-09-19 08:35] LABS: ALC (manual) 0.61 K/uL (1.2-3.4); ANC (manual) 7.03 K/uL (1.4-6.5); Lymphocytes # (manual) 0.61 K/uL (1.2-3.4); Lymphocytes % (manual) 8 %; Neutrophils # (manual) 7.03 K/uL (1.40-6.50); Neutrophils % (manual) 92 %
[2024-09-19 08:37] LABS: Estimated Average Glucose 140 mg/dl; Hemoglobin A1C 6.5 % (4.5-5.6)
[2024-09-19] MEDS: POTASSIUM CHLORIDE CRTAB 20 MEQ TABCR PO STA (09:24)
--- NOTE | 2024-09-19 11:16 | Hospitalist Progress Note ---
Date of Service September 19, 2024 Assessment & Plan (1) Acute diverticulitis: (2) Adenocarcinoma of lung: (3) Urinary retention: Plan 64 year old male with past medical history of lung adenocarcinoma started on chemotherapy recently, prediabetes, history of tobacco use disorder quit in July 2024 presents to the ED with lower abdominal pain, CT scan showing sigmoid diverticulitis, went into urinary retention and required Sherman catheter on admission. #Sepsis secondary to diverticulitis, present on admission #Acute diverticulitis No colonoscopy for 15 years therefore should follow up for this in 4-6 weeks with PCP for referral to GI White count improving Lactic acid levels have normalized Continue IV fluid hydration Continue IV Zosyn (day 2) Analgesia with Tylenol as needed and Dilaudid IV as needed for severe pain Advance diet to regular diet Check abdominal x-ray since bili appears slightly distended today #Elevated troponin Likely demand ischemia in setting of sepsis Troponin improving EKG without any ischemic changes Patient without any chest pain or shortness of breath 2D echo from 09/18/2024 shows EF of 60 to 65%, no regional wall motion abnormality, no significant valvular pathology. #Acute urinary retention CT taken after voiding in the ER, 900ml retention in sherman Continue sherman catheter, tamsulosin 0.4mg PO QAM Follow up with urology as outpatient for trial without catheter #Prediabetes/new diagnosis of diabetes Previously A1c 6.1 A1c 6.5 Outpatient follow-up with PCP on discharge #Hypokalemia Potassium replacement Monitor levels CODE STATUS: Full code DVT prophylaxis: Lovenox 40 mg subcutaneous daily Disposition: PT recommending short-term rehab on discharge, OT recommending home health services. Likely discharge in the next 48 to 72 hours based on clinical improvement Care plan discussed with patient, nursing staff Admission and Anticipated Discharge Date Admission Date: September 17, 2024 Physical Exam Physical Exam: General: No acute distress Psych: Awake and alert HEENT: Anicteric sclera, moist oral mucosa CVS: Regular rate and rhythm Lungs: Bilateral air entry, no wheezing noted Abdomen: Soft, mild distention, tender to palpation lower abdomen, no rebound, no guarding Ext: No lower extremity edema, no calf tenderness Neuro: No focal motor deficits noted : Indwelling Sherman catheter noted Results & Data Results & Data Vital Signs (Past 12 Hours) Vital Signs Temp Pulse Resp BP Pulse Ox O2 Del Method 09/19/24 08:03 70 09/19/24 07:10 37.2 C 20 145/88 H 90 Room Air Laboratory Results 09/19/24 06:32 WBC 7.64 D RBC 4.55 L Hgb 13.8 L Hct 40.3 L MCV 88.6 MCH 30.3 MCHC 34.2 RDW Std Deviation 42.3 RDW Coeff of Sindhu 13.1 Plt Count 164 MPV 10.7 Neutrophils % (Manual) 92 Lymphocytes % (Manual) 8 Neutrophils # (Manual) 7.03 H Total Absolute Neuts 7.03 H Lymphocytes # (Manual) 0.61 L Total Abs Lymphocytes 0.61 L Sodium 131 L Potassium 3.3 L D Chloride 96 L Carbon Dioxide 28 Anion Gap 7 BUN 19 Creatinine 0.83 Est Cr Clr Drug Dosing 77.0 eGFR 96.53 BUN/Creatinine Ratio 22.9 H Glucose 123 H Estimat Average Glucose 140 Hemoglobin A1c 6.5 H Calcium 8.4 L Magnesium 1.9 Vitamin B12 324 PG Care Time/CCT Total # of Minutes Spent Total Time Spent with Patient: Total time spent is greater than 50% in coordination of care (as documented) at patient's floor/unit and/or counseling patient: Coding Level of Care Code 53327 SUB INP/OBS CARE 3/50MIN Diagnoses Acute diverticulitis K57.92 Adenocarcinoma of lung C34.90 Urinary retention R33.9
--- NOTE | 2024-09-19 12:13 | XRay Report ---
XR abdomen min 2V CLINICAL HISTORY: abdo pain COMPARISON STUDY: CT of 09/17/2024 FINDINGS: There is moderate retained stool. There is a mildly dilated upper abdominal small bowel loo p measuring 3.3 cm diameter. No other bowel distention seen. No gross free air. Findings of diverticu litis seen on the recent CT scan are not visualized by plain film. IMPRESSION: 1. Findings of diverticulitis seen on the recent CT scan are not visualized by plain film. 2. Mildly dilated upper abdominal small bowel loop, possible ileus or reactive inflammation due to di verticulitis. No other bowel distention seen. No gross free air seen. ACT 112: Negative or not required by law. Electronically signed by: Jorge Cox M.D. 09/19/2024 12:12 PM
--- NOTE | 2024-09-19 12:14 | XRay Report ---
XR chest 2V PA/lateral CLINICAL HISTORY: sob COMPARISON STUDY: 09/17/2024 FINDINGS: Stable right chest port. Heart size and pulmonary vasculature are normal. Inspiration is sh allow. There is increased stranding opacity in the lung bases. No pleural effusion or pneumothorax se en. IMPRESSION: Atelectasis versus pneumonia in the lung bases. ACT 112: Negative or not required by law. Electronically signed by: Jorge Cox M.D. 09/19/2024 12:13 PM
[2024-09-19] MEDS: ACETAMINOPHEN 500 MG TAB PO PRN (12:37)
[2024-09-19] MEDS: CYANOCOBALAMIN 1000 MCG/ML VIAL IM SCH (12:44)
--- NOTE | 2024-09-19 16:08 | Surgery Consultation ---
Date of Consultation September 19, 2024 Assessment & Plan (1) Urinary retention: (2) Diffuse abdominal pain: (3) Diverticulitis: 64 yo male with adenocarcinoma of lung with first dose of chemotherapy last week with sudden onset of abdominal pain with CT scan showing uncomplicated sigmoid diverticulitis. WBC initially up to 22k but now normalized. hemodynamically stable however abdomen is distended, firm and generalized tenderness. No bowel function since admission. KUB today with ileus. Discussed with patient that he likely has ileus secondary to diverticulitis but will need close monitoring due to the abdominal distension and pain. If any persistent nausea or episode of vomiting he will need NGT placement given distension. Highly encouraged ambulation to increase GI motility. NPO may have ice chips and sips of water. Repeat kub in am. Will likely require Miralax given stool burden in right colon on KUB but would await return of flatus and improvement of distension. Low threshold to repeat CT scan if any changes in pain or distension does not improve. Discussed with Dr. Chow and hospitalist Dr. Roman History of Present Illness Reason for Consultation: Ileus Requesting Physician: Betito Roman MD Attending Physician: Betito Roman MD History of Present Illness Mr. Lamar is a 64 yo male who was recently diagnosed with adenocarcinoma of the lung and started chemotherapy last week who presented to emergency department due to severe abdominal pain and sweating. Had CT scan of abdomen and pelvis which showed uncomplicated sigmoid diverticulitis. He states he was in severe pain when he presented to ED along with abdomen felt distended. He states once he got pain medication it helped the pain. No prior episodes of diverticulitis. Last colonoscopy was 15 years ago. He has regular bowel movements every day to every other day. Last bowel movement was Thursday. Has not passed gas since admission either. still feels bloated but slightly better than yesterday. Belching and hiccups. No vomiting. no persistent nausea. On regular diet. Allergies Allergy/AdvReac Type Severity Reaction Status Date / Time strawberry Allergy Mild Rash Verified 09/06/24 13:08 Iodinated Contrast Media AdvReac Intermediate Nausea Verified 09/06/24 13:08 codeine AdvReac Unknown "Sour Verified 09/06/24 13:08 stomach" Home Medications Medication Instructions Recorded Confirmed Type No Known Home Medications 08/17/24 09/17/24 History Patient History Medical History ASCVD (arteriosclerotic cardiovascular disease) mild-mod coronary artery calcifications seen on PET imaging 07/2024 Prediabetes Adenocarcinoma of lung 07/15/24 COPD with emphysema Hx of chronic bronchitis Blood pressure elevated without history of HTN Hx History of alcohol abuse Surgical History (Updated 08/24/24 @ 16:56 by Kelsie Dubose, RN) Port-A-Cath in place (08/24/24) Insertion of Access Port with Fluoroscopy(Not Applicable) - Jorge Valle DO, FACS History of bronchoscopy bronchoscopy, EBUS 07/13/24; GA: MAC#3, ETT#8.5, Gr View 1 Hx of colonoscopy 2014 History of tympanoplasty of right ear Vasectomy status History of surgery on lower extremity metal romelia in left leg Family History Mother Breast cancer Grandmother (Paternal) Myocardial infarction Father Diabetes Heart disease Other Colorectal cancer Denies family history of Ovarian cancer Prostate cancer Social History Smoking Status: Former smoker Tobacco Type: Cigarettes Age Started Using Tobacco: 12; Age Quit Using Tobacco: 64; packs per day: 1; Second Hand Exposure: Yes (hx); Do You Dip or Chew Tobacco: Yes; Tobacco Cessation Education Requested by Patient: No Hx Alcohol Use: No Hx Substance Use: Yes Non-Prescribed Medications: Marijuana Preferred Language: Bengali Communication Ability: Effective Visual Impairment: No Limitations Hearing Ability: Hard of Hearing 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 Required: No Beliefs That Will Affect Care: None marital status: Current Living Situation: Alone current occupational status: retired How many Children do You have: 6 Other Information That Helps Us Care for You: No Feels Safe at Home: Yes Safety Concerns: Feels Safe At This Time Diet: regular Diet Comment: regular caffeine: Yes during the past year weight has: remained stable Dental Care, Regularly: No Physical Activity Frequency: Daily Seatbelt Use: always Sunscreen Use: Yes Assistive Devices: Glasses Review of Systems Review of Systems: All systems reviewed & are unremarkable except as noted in HPI & below Physical Exam Constitutional: WD/WN, vitals as above cooperative and comfortable; no acute distress, not ill appearing, not in distress, not diaphoretic and not lethargic Respiratory: normal respiratory effort; no respiratory distress, no labored breathing and no retractions Gastrointestinal (Abdomen): Inspection/Auscultation: + abdomen distended; + abnormal bowel sounds Percussion/Palpation: + abdomen tender (generalized), + guarding (voluntary), abdomen soft and + abdomen firm (secondary to distention); abdomen not rigid Skin: no rashes, warm and dry Psychiatric: Orientation: alert and oriented x 3 Results & Data Vital Signs (Past 12 Hours) Vital Signs Temp Pulse Resp BP Pulse Ox O2 Del Method 09/19/24 15:13 37.1 C 81 17 141/83 H 93 Room Air 09/19/24 08:30 Room Air 09/19/24 08:03 70 09/19/24 07:10 37.2 C 20 145/88 H 90 Room Air Laboratory Results 09/19/24 Range/Units 06:32 WBC 7.64 D (4.8-10.8) K/ul RBC 4.55 L (4.70-6.10) M/uL Hgb 13.8 L (14.0-18.0) g/dl Hct 40.3 L (42.0-52.0) % MCV 88.6 (80.0-100.0) fL MCH 30.3 (25.0-34.0) pg MCHC 34.2 (32.0-36.0) g/dL RDW Std Deviation 42.3 (36.4-46.3) fL RDW Coeff of Sindhu 13.1 (11.5-14.5) % Plt Count 164 (130-400) K/uL MPV 10.7 (9.4-12.4) fL Neutrophils % (Manual) 92 % Lymphocytes % (Manual) 8 % Neutrophils # (Manual) 7.03 H (1.40-6.50) K/uL Total Absolute Neuts 7.03 H (1.4-6.5) K/uL Lymphocytes # (Manual) 0.61 L (1.2-3.4) K/uL Total Abs Lymphocytes 0.61 L (1.2-3.4) K/uL Sodium 131 L (136-145) mmol/L Potassium 3.3 L D (3.5-5.1) mmol/L Chloride 96 L (98-107) mmol/L Carbon Dioxide 28 (21-32) mmol/L Anion Gap 7 (3-11) BUN 19 (6-23) mg/dl Creatinine 0.83 (0.6-1.4) mg/dl Est Cr Clr Drug Dosing 77.0 ml/min eGFR 96.53 BUN/Creatinine Ratio 22.9 H (10-20) Glucose 123 H (70-99(Fasting)) mg/dl Estimat Average Glucose 140 mg/dl Hemoglobin A1c 6.5 H (4.5-5.6) % Calcium 8.4 L (8.6-10.3) mg/dl Magnesium 1.9 (1.7-2.4) mg/dl Vitamin B12 324 (180-914) pg/ml Diagnostic Findings XR abdomen min 2V CLINICAL HISTORY: abdo pain COMPARISON STUDY: CT of 09/17/2024 FINDINGS: There is moderate retained stool. There is a mildly dilated upper abdominal small bowel loop measuring 3.3 cm diameter. No other bowel distention seen. No gross free air. Findings of diverticulitis seen on the recent CT scan are not visualized by plain film. IMPRESSION: 1. Findings of diverticulitis seen on the recent CT scan are not visualized by plain film. 2. Mildly dilated upper abdominal small bowel loop, possible ileus or reactive inflammation due to diverticulitis. No other bowel distention seen. No gross free air seen. CT of the abdomen pelvis with contrast Technique: Postcontrast axial images of the abdomen pelvis. Coronal and sagittal reformatted images made available for review No comparison Findings: Small bilateral pleural effusions right greater than left 1.2 cm left renal cyst. Solid abdominal organs unremarkable in appearance. 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 Wall thickening and inflammatory changes involving a short segment of sigmoid colon in the left Andrzej pelvis. No pericolonic fluid collections identified on this exam. Marked distention of the urinary bladder. 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
[2024-09-19] MEDS: SODIUM CHLORIDE 0.9% 1,000 ML IV SCH (16:34)
[2024-09-19] MEDS: POLYETHYLENE (MIRALAX) 17 GM PACK PO SCH (16:34)
[2024-09-19] MEDS: ACETAMINOPHEN 500 MG TAB PO SCH (21:09)
[2024-09-19] MEDS: SENNA 8.6 MG TAB PO SCH (21:09)
[2024-09-20 08:31] LABS: Hematocrit (blood only) 38.9 % (42.0-52.0); Hemoglobin 13.2 g/dl (14.0-18.0); Mean Corpuscular Hemoglobin 29.7 pg (25.0-34.0); Mean Corpuscular Hgb Conc 33.9 g/dL (32.0-36.0); Mean Corpuscular Volume 87.4 fL (80.0-100.0); Mean Platelet Volume 10.1 fL (9.4-12.4); Platelet Count 134 K/uL (130-400); RDW Coefficient of Variation 12.5 % (11.5-14.5); RDW Standard Deviation 40.3 fL (36.4-46.3); Red Blood Count 4.45 M/uL (4.70-6.10); White Blood Count 2.31 K/ul (4.8-10.8)
[2024-09-20 08:48] LABS: BUN Creatinine Ratio 23.6 (10-20); Calcium 8.1 mg/dl (8.6-10.3); Creatinine Clr Calc Pharmacy 88.8 ml/min
--- NOTE | 2024-09-20 08:49 | Surgery Progress Note ---
Date of Service September 20, 2024 Assessment & Plan (1) Urinary retention: (2) Diffuse abdominal pain: (3) Diverticulitis: Plan: 64 yo male with adenocarcinoma of lung with first dose of chemotherapy last week with sudden onset of abdominal pain with CT scan showing uncomplicated sigmoid diverticulitis. WBC initially up to 22k but now normalized. hemodynamically stable however abdomen is distended, firm and generalized tenderness. No bowel function since admission. KUB today with ileus. Discussed with patient that he likely has ileus secondary to diverticulitis but will need close monitoring due to the abdominal distension and pain. If any persistent nausea or episode of vomiting he will need NGT placement given distension. Highly encouraged ambulation to increase GI motility. NPO may have ice chips and sips of water. Repeat kub in am. Will likely require Miralax given stool burden in right colon on KUB but would await return of flatus and improvement of distension. Low threshold to repeat CT scan if any changes in pain or distension does not improve. 09/20/2024 required dose of IV dialudid last night. abdomen signfiicnatly still distended , firm and very tender on examination. Strict NPO NGT to LIS STAT CT scan abd/pelvis with IV contrast hold miralas hold lovenox Discussed with Dr. Gillis and hospitalist Dr. Roman addendum: 03/17 FINDINGS: A small hiatal hernia is noted. Distal esophageal wall thickening is present. Small bilateral pleural effusions are similar to CT of September 17, 2024. Associated subpleural opacities favor atelectasis. An enlarged inferior left hilar lymph node measures at least 1.8 x 1.7 cm. This was FDG avid on PET/CT of July 20, 2024. There are no hepatic lesions. Spleen, adrenal glands, right kidney and pancreas are normal. There is a left renal cyst. There is no hydronephrosis. Layering hyperdense material within the gallbladder is present. The gallbladder is not distended. Extensive aortoiliac atherosclerotic plaque. A 3 cm infrarenal abdominal aortic aneurysm is present as well as a 2.6 and a right common iliac artery aneurysm. There is no evidence for rupture. Colonic diverticulosis is noted. Sigmoid colon wall thickening is noted. Inflammation centered on the proximal sigmoid colon is noted. Multiple adjacent gas and fluid containing collections have developed since prior CT consistent with perforation with developing abscesses. A collection superior to the sigmoid colon on image [id number] measures 4 x 1.7 cm. A collection within the left anterior paracolic gutter measures 2.6 x 1.8 cm. A few of these collections communicate. A small amount of ascites has increased. Associated small bowel wall thickening and mesenteric stranding has progressed. The proximal to mid small bowel is mildly dilated and fluid-filled. Distal small bowel is relatively decompressed. There is a large amount of poorly formed stool within the ascending colon and transverse colon. There is a moderate amount of stool within the rectum and sigmoid colon. The right colon is mildly dilated. The urinary bladder is collapsed, containing a Tong balloon. IMPRESSION: 1. Findings consistent with perforated sigmoid diverticulitis with progression since CT of September 17, 2024. Interval development of several fluid and gas containing pericolonic collections consistent with developing abscesses. Increase in ascites, mesenteric stranding and associated small bowel wall thickening which is likely reactive. 2. Proximal to mid small bowel dilatation which has developed since prior exam. This could represent a partial small bowel obstruction due to inflammation related to diverticulitis or an ileus. 3. Moderate amount of stool within the colon and rectum. Mild right colon dilatation. 4. No change in small bilateral pleural effusions. 5. Small hiatal hernia. Distal esophageal wall thickening which may represent esophagitis. Plan: will need NGT placement given small bowel distention and examination. Will order ativan to help patient relax and can order some lidocaine jelly to help with placement Continue IV Zosyn strict npo No diffuse intraperiotneal air, would like to avoid surgical intervention given neutropenia, recent chemotherapy. He would required temporary colostomy with surgical intervention given perforation and abscess. repeat labs, monitor cbc may need to repeat ct scan imaging to determine if abscess drainable via IR if wbc starts to increase or no improvement in abdominal examination. discussed with dr. gillis who agrees with above. Admission and Anticipated Discharge Date Admission Date: September 17, 2024 Subjective not feeling great this am still very distended, no improvement required IV dilaudid last night and had nausea passed small amount of gas but no bowel movement Physical Exam Constitutional: + thin and cooperative; no acute distres s (but looks uncomfortable), not ill appearing, + uncomfortable, not in distress and not diaphoretic Respiratory: normal respiratory effort; no respiratory distress, no labored breathing and no retractions Gastrointestinal (Abdomen): Inspection/Auscultation: + abdomen distended (diffusely distended); + abnormal bowel sounds Percussion/Palpation: + abdomen tender, + guarding and + abdomen firm Skin: no rashes, warm and dry Psychiatric: Orientation: alert and oriented x 3 Results & Data Vital Signs (Past 12 Hours) Vital Signs Temp Pulse Resp BP Pulse Ox O2 Del Method O2 Flow Rate 09/20/24 08:16 Room Air, Nasal Cannula 2 09/20/24 07:35 37.0 C 84 22 140/87 91 Room Air Laboratory Results 09/20/24 Range/Units 08:10 WBC 2.31 L (4.8-10.8) K/ul RBC 4.45 L (4.70-6.10) M/uL Hgb 13.2 L (14.0-18.0) g/dl Hct 38.9 L (42.0-52.0) % MCV 87.4 (80.0-100.0) fL MCH 29.7 (25.0-34.0) pg MCHC 33.9 (32.0-36.0) g/dL RDW Std Deviation 40.3 (36.4-46.3) fL RDW Coeff of Sindhu 12.5 (11.5-14.5) % Plt Count 134 (130-400) K/uL MPV 10.1 (9.4-12.4) fL Sodium 129 L (136-145) mmol/L Potassium 3.0 L (3.5-5.1) mmol/L Chloride 93 L (98-107) mmol/L Carbon Dioxide 27 (21-32) mmol/L Anion Gap 9 (3-11) BUN 17 (6-23) mg/dl Creatinine 0.72 (0.6-1.4) mg/dl Est Cr Clr Drug Dosing 88.8 ml/min eGFR 100.76 BUN/Creatinine Ratio 23.6 H (10-20) Glucose 113 H (70-99(Fasting)) mg/dl Calcium 8.1 L (8.6-10.3) mg/dl Magnesium 2.0 (1.7-2.4) mg/dl C-Reactive Protein 35.78 H (0-0.5) mg/dl
[2024-09-20] MEDS: HEPARIN 100 UNIT/ML 5ML FLUSH FLUSH PRN (08:50)
[2024-09-20] MEDS ORDERED: ACETAMINOPHEN 10MG/ML Custom 1,000 MG in EMPTY BAG 0 ML IV PRN (08:51)
[2024-09-20] MEDS ORDERED: ACETAMINOPHEN 1,000 MG/100 ML VIAL IV PRN (08:57)
[2024-09-20] MEDS ORDERED: VITAMIN B COMPLEX TAB PO SCH (09:00)
[2024-09-20 09:04] LABS: C Reactive Protein 35.78 mg/dl (0-0.5)
[2024-09-20] MEDS: NSS + 20MEQ KCL 20 MEQ/1,000 ML BAG IV SCH (09:16)
[2024-09-20] MEDS: diphenhydrAMINE 50 MG/ML VIAL IV STA (10:46)
[2024-09-20] MEDS: OPTIRAY 320 100ml IV ONE (11:12)
--- NOTE | 2024-09-20 11:38 | CT Scan Report ---
CT SCAN OF THE ABDOMEN AND PELVIS WITH IV CONTRAST CLINICAL HISTORY: Abdominal distention. Diverticulitis. Evaluate for perforation. COMPARISON STUDY: CT of the abdomen and pelvis September 17, 2024. PET/CT July 20, 2024. TECHNIQUE: Following the IV administration of 93 cc of Optiray 320, CT scan of the abdomen and pelvi s is performed from the lung bases to the proximal femora. Images are reviewed in the axial, sagittal , and coronal planes. IV contrast was administered without complication. A dose lowering technique wa s utilized adhering to the principles of ALARA. CT DOSE: 927.78 mGy.cm FINDINGS: A small hiatal hernia is noted. Distal esophageal wall thickening is present. Small bilater al pleural effusions are similar to CT of September 17, 2024. Associated subpleural opacities favor atelec tasis. An enlarged inferior left hilar lymph node measures at least 1.8 x 1.7 cm. This was FDG avid o n PET/CT of July 20, 2024. There are no hepatic lesions. Spleen, adrenal glands, right kidney and pa ncreas are normal. There is a left renal cyst. There is no hydronephrosis. Layering hyperdense materi al within the gallbladder is present. The gallbladder is not distended. Extensive aortoiliac atherosc lerotic plaque. A 3 cm infrarenal abdominal aortic aneurysm is present as well as a 2.6 and a right c ommon iliac artery aneurysm. There is no evidence for rupture. Colonic diverticulosis is noted. Sigmo id colon wall thickening is noted. Inflammation centered on the proximal sigmoid colon is noted. Mult iple adjacent gas and fluid containing collections have developed since prior CT consistent with perf oration with developing abscesses. A collection superior to the sigmoid colon on image [id number] measur es 4 x 1.7 cm. A collection within the left anterior paracolic gutter measures 2.6 x 1.8 cm. A few of these collections communicate. A small amount of ascites has increased. Associated small bowel wall thickening and mesenteric stranding has progressed. The proximal to mid small bowel is mildly dilated and fluid-filled. Distal small bowel is relatively decompressed. There is a large amount of poorly f ormed stool within the ascending colon and transverse colon. There is a moderate amount of stool with in the rectum and sigmoid colon. The right colon is mildly dilated. The urinary bladder is collapsed, containing a Tong balloon. IMPRESSION: 1. Findings consistent with perforated sigmoid diverticulitis with progression since CT of September 17 025. Interval development of several fluid and gas containing pericolonic collections consistent with developing abscesses. Increase in ascites, mesenteric stranding and associated small bowel wall thic kening which is likely reactive. 2. Proximal to mid small bowel dilatation which has developed since prior exam. This could represent a partial small bowel obstruction due to inflammation related to diverticulitis or an ileus. 3. Moderate amount of stool within the colon and rectum. Mild right colon dilatation. 4. No change in small bilateral pleural effusions. 5. Small hiatal hernia. Distal esophageal wall thickening which may represent esophagitis. ACT 112: Negative or not required by law. Electronically signed by: Len Quigley M.D. 09/20/2024 11:36 AM
--- NOTE | 2024-09-20 12:10 | Hospitalist Progress Note ---
Date of Service September 20, 2024 Assessment & Plan (1) Acute diverticulitis: (2) Adenocarcinoma of lung: (3) Urinary retention: Plan 64 year old male with past medical history of lung adenocarcinoma started on chemotherapy recently, prediabetes, history of tobacco use disorder quit in July 2024 presents to the ED with lower abdominal pain, CT scan showing sigmoid diverticulitis, went into urinary retention and required Sherman catheter on admission. #Sepsis secondary to diverticulitis, present on admission #Acute diverticulitis with perforation and developing abscess No colonoscopy for 15 years therefore should follow up for this in 4-6 weeks with PCP for referral to GI White count improving Lactic acid levels have normalized Continue IV fluid hydration with normal saline +20 mEq of KCl x 24 hours, reevaluate fluids in a.m. based on repeat BMP and electrolytes Continue IV Zosyn (day 3) Analgesia with Tylenol IV as needed and Dilaudid IV as needed for severe pain Repeat CT scan today done by surgery shows perforated diverticulitis with abscess, no free air Surgery following the patient, plan is for patient to get an NG tube for decompression, they are trying to avoid surgery at this point, strict n.p.o. #Elevated troponin Likely demand ischemia in setting of sepsis Troponin improving EKG without any ischemic changes Patient without any chest pain or shortness of breath 2D echo from 09/18/2024 shows EF of 60 to 65%, no regional wall motion abnormality, no significant valvular pathology. #Acute urinary retention CT taken after voiding in the ER, 900ml retention in sherman Continue sherman catheter, tamsulosin 0.4mg PO QAM Follow up with urology as outpatient for trial without catheter #Prediabetes Previously A1c 6.1 A1c 6.5 Outpatient follow-up with PCP on discharge #Hypokalemia Potassium replacement with IV fluids Monitor levels CODE STATUS: Full code DVT prophylaxis: Lovenox 40 mg subcutaneous daily Disposition: PT recommending short-term rehab on discharge, OT recommending home health services. Likely discharge in the next 3 to 4 days based on clinical improvement, surgical recommendations Care plan discussed with patient, nursing staff and family updated at bedside with patient's permission Admission and Anticipated Discharge Date Admission Date: September 17, 2024 Subjective Patient seen and examined Family including daughter, son-in-law and grandson at bedside Patient with increased abdominal distention, states pain is better today, denies any nausea, vomiting. Denies any bowel movement He had a repeat CT done by surgery team today which is showing perforated diverticulitis, surgery is planning on placing an NG tube for decompression and trying to avoid surgery Patient denies any chest pain or shortness of breath Physical Exam Physical Exam: General: No acute distress Psych: Awake and alert, oriented to place and person HEENT: Anicteric sclera, moist oral mucosa CVS: Regular rate and rhythm Lungs: Bilateral air entry, no wheezing noted Abdomen: Soft, distention noted, tender to palpation lower abdomen, hypoactive bowel sounds Ext: No lower extremity edema, no calf tenderness Neuro: No focal motor deficits noted : Indwelling Sherman catheter noted Results & Data Results & Data Vital Signs (Past 12 Hours) Vital Signs Temp Pulse Resp BP Pulse Ox O2 Del Method O2 Flow Rate 09/20/24 08:16 Room Air, Nasal Cannula 2 09/20/24 07:35 37.0 C 84 22 140/87 91 Room Air Laboratory Results 09/20/24 08:10 WBC 2.31 L RBC 4.45 L Hgb 13.2 L Hct 38.9 L MCV 87.4 MCH 29.7 MCHC 33.9 RDW Std Deviation 40.3 RDW Coeff of Sindhu 12.5 Plt Count 134 MPV 10.1 Sodium 129 L Potassium 3.0 L Chloride 93 L Carbon Dioxide 27 Anion Gap 9 BUN 17 Creatinine 0.72 Est Cr Clr Drug Dosing 88.8 eGFR 100.76 BUN/Creatinine Ratio 23.6 H Glucose 113 H Calcium 8.1 L Magnesium 2.0 C-Reactive Protein 35.78 H Diagnostic Findings Abdomen X-Ray 09/19/24 11:16 XR abdomen min 2V CLINICAL HISTORY: abdo pain COMPARISON STUDY: CT of 09/17/2024 FINDINGS: There is moderate retained stool. There is a mildly dilated upper abdominal small bowel loop measuring 3.3 cm diameter. No other bowel distention seen. No gross free air. Findings of diverticulitis seen on the recent CT scan are not visualized by plain film. IMPRESSION: 1. Findings of diverticulitis seen on the recent CT scan are not visualized by plain film. 2. Mildly dilated upper abdominal small bowel loop, possible ileus or reactive inflammation due to diverticulitis. No other bowel distention seen. No gross free air seen. ACT 112: Negative or not required by law. Electronically signed by: Jorge Cox M.D. 09/19/2024 12:12 PM Chest X-Ray 09/19/24 11:16 XR chest 2V PA/lateral CLINICAL HISTORY: sob COMPARISON STUDY: 09/17/2024 FINDINGS: Stable right chest port. Heart size and pulmonary vasculature are normal. Inspiration is shallow. There is increased stranding opacity in the lung bases. No pleural effusion or pneumothorax seen. IMPRESSION: Atelectasis versus pneumonia in the lung bases. ACT 112: Negative or not required by law. Electronically signed by: Jorge Cox M.D. 09/19/2024 12:13 PM Abdomen/Pelvis CT 09/20/24 08:44 CT SCAN OF THE ABDOMEN AND PELVIS WITH IV CONTRAST CLINICAL HISTORY: Abdominal distention. Diverticulitis. Evaluate for perforation. COMPARISON STUDY: CT of the abdomen and pelvis September 17, 2024. PET/CT July 20, 2024. TECHNIQUE: Following the IV administration of 93 cc of Optiray 320, CT scan of the abdomen and pelvis is performed from the lung bases to the proximal femora. Images are reviewed in the axial, sagittal, and coronal planes. IV contrast was administered without complication. A dose lowering technique was utilized adhering to the principles of ALARA. CT DOSE: 927.78 mGy.cm FINDINGS: A small hiatal hernia is noted. Distal esophageal wall thickening is present. Small bilateral pleural effusions are similar to CT of September 17, 2024. Associated subpleural opacities favor atelectasis. An enlarged inferior left hilar lymph node measures at least 1.8 x 1.7 cm. This was FDG avid on PET/CT of July 20, 2024. There are no hepatic lesions. Spleen, adrenal glands, right kidney and pancreas are normal. There is a left renal cyst. There is no hydronephrosis. Layering hyperdense material within the gallbladder is present. The gallbladder is not distended. Extensive aortoiliac atherosclerotic plaque. A 3 cm infrarenal abdominal aortic aneurysm is present as well as a 2.6 and a r ight common iliac artery aneurysm. There is no evidence for rupture. Colonic diverticulosis is noted. Sigmoid colon wall thickening is noted. Inflammation centered on the proximal sigmoid colon is noted. Multiple adjacent gas and fluid containing collections have developed since prior CT consistent with perforation with developing abscesses. A collection superior to the sigmoid colon on image [id number] measures 4 x 1.7 cm. A collection within the left anterior paracolic gutter measures 2.6 x 1.8 cm. A few of these collections communicate. A small amount of ascites has increased. Associated small bowel wall thickening and mesenteric stranding has progressed. The proximal to mid small bowel is mildly dilated and fluid-filled. Distal small bowel is relatively decompressed. There is a large amount of poorly formed stool within the ascending colon and transverse colon. There is a moderate amount of stool within the rectum and sigmoid colon. The right colon is mildly dilated. The urinary bladder is collapsed, containing a Sherman balloon. IMPRESSION: 1. Findings consistent with perforated sigmoid diverticulitis with progression since CT of September 17, 2024. Interval development of several fluid and gas containing pericolonic collections consistent with developing abscesses. Increase in ascites, mesenteric stranding and associated small bowel wall thickening which is likely reactive. 2. Proximal to mid small bowel dilatation which has developed since prior exam. This could represent a partial small bowel obstruction due to inflammation related to diverticulitis or an ileus. 3. Moderate amount of stool within the colon and rectum. Mild right colon dilatation. 4. No change in small bilateral pleural effusions. 5. Small hiatal hernia. Distal esophageal wall thickening which may represent esophagitis. ACT 112: Negative or not required by law. Electronically signed by: Len Quigley M.D. 09/20/2024 11:36 AM PG Care Time/CCT Total # of Minutes Spent Total Time Spent with Patient: Total time spent is greater than 50% in coordination of care (as documented) at patient's floor/unit and/or counseling patient: Coding Level of Care Code 80863 SUB INP/OBS CARE 3/50MIN Diagnoses Acute diverticulitis K57.92 Adenocarcinoma of lung C34.90 Urinary retention R33.9
[2024-09-20] MEDS: LORazepam 2 MG/1 ML VIAL IV STA (13:04)
[2024-09-20] MEDS: LIDOCAINE 2% JELLY 5 ML TUBE EXT ONE (13:05)
--- NOTE | 2024-09-20 14:16 | Gastrointestinal Consultation ---
Date of Consultation September 20, 2024 Assessment & Plan (1) Perforation of sigmoid colon due to diverticulitis: (1) Perforated Sigmoid Diverticulitis - Case reviewed with Dr. Aguirre, Gastroenterology. - Explained to patient the limitations of EGD guided NG tube placement. - Patient agreeable to proceed. - Maintain patient NPO - Plan to add patient on for EGD this afternoon for NG tube placement. Supervising Physician Co-Signing Physician Notes History of lung cancer. Admitted with diverticulitis. Evidence of worsening now with ileus. Eventually developing ascites and abscess. Surgery following and managing. NG could not be inserted on the floor. Reviewed with interventional radiology they do not have the ability to place an NG. Therefore GI is consulted for NG placement. Potential complication of NG placement in the GI think is the dislodgment of the tube withdrawing the scope. Common problem. We will lubricate the NG well to decrease the likelihood of this occurring. Potential for nosebleeds in this gentleman with previous nasal fractures is present. Aspiration is a potential concern. Bleeding and/or perforation. Informed consent was obtained. I do think his bowel needs decompressed based on examination with distention. Proceed with EGD and NG placement today History of Present Illness Reason for Consultation: Perforated diverticulitis. Needs NG tube. Requesting Physician: Dr. Roman. Attending Physician: Betito Roman MD History of Present Illness [id number] with h/o COPD, AdenoCA of lung, Chronic bronchitis, pre-diabetes, DL and nasal fractures is seen for GI consultation today. Patient has been hospitalized for perforated sigmoid diverticulitis. They have tried to get an NG tube in but per nursing staff, they have been unable to do this d/t patient having a strong gag reflex and left sided nasal fractures in the past. Patient seen on floor. He has been NPO for since Thursday. IR does not have the equipment necessary to place NG tube. Explained to patient that we can attempt to do this but it's not uncommon to have the NG tube become misplaced upon withdrawing the camera. An alternative would be to transfer the patient out. Patient voices understanding and is agreeable to proceed with EGD for placement of NG tube. Pertinent Diagnostics Abd Pelvis CT - 1. Findings consistent with perforated sigmoid diverticulitis with progression since CT of September 17, 2024. Interval development of several fluid and gas containing pericolonic collections consistent with developing abscesses. Increase in ascites, mesenteric stranding and associated small bowel wall thickening which is likely reactive. 2. Proximal to mid small bowel dilatation which has developed since prior exam. This could represent a partial small bowel obstruction due to inflammation related to diverticulitis or an ileus. 3. Moderate amount of stool within the colon and rectum. Mild right colon dilatation. 4. No change in small bilateral pleural effusions. 5. Small hiatal hernia. Distal esophageal wall thickening which may represent esophagitis. Allergies Allergy/AdvReac Type Severity Reaction Status Date / Time strawberry Allergy Mild Rash Verified 09/06/24 13:08 Iodinated Contrast Media AdvReac Intermediate Nausea Verified 09/06/24 13:08 codeine AdvReac Unknown "Sour Verified 09/06/24 13:08 stomach" Home Medications Medication Instructions Recorded Confirmed Type No Known Home Medications 08/17/24 09/17/24 History Patient History Medical History ASCVD (arteriosclerotic cardiovascular disease) mild-mod coronary artery calcifications seen on PET imaging 07/2024 Prediabetes Adenocarcinoma of lung 07/15/24 COPD with emphysema Hx of chronic bronchitis Blood pressure elevated without history of HTN Hx History of alcohol abuse Surgical History Port-A-Cath in place (08/24/24) Insertion of Access Port with Fluoroscopy(Not Applicable) - Jorge Valle, , FACS History of bronchoscopy bronchoscopy, EBUS 07/13/24; GA: MAC#3, ETT#8.5, Gr View 1 Hx of colonoscopy 2014 History of tympanoplasty of right ear Vasectomy status History of surgery on lower extremity metal romelia in left leg Family History Mother Breast cancer Grandmother (Paternal) Myocardial infarction Father Diabetes Heart disease Other Colorectal cancer Denies family history of Ovarian cancer Prostate cancer Social History Smoking Status: Former smoker Tobacco Type: Cigarettes Age Started Using Tobacco: 12; Age Quit Using Tobacco: 64; packs per day: 1; Second Hand Exposure: Yes (hx); Do You Dip or Chew Tobacco: Yes; Tobacco Cessation Education Requested by Patient: No Hx Alcohol Use: No Hx Substance Use: Yes Non-Prescribed Medications: Marijuana Preferred Language: [place] Communication Ability: Effective Visual Impairment: No Limitations Hearing Ability: Hard of Hearing [place] Required: No Beliefs That Will Affect Care: None marital status: Current Living Situation: Alone current occupational status: retired How many Children do You have: 6 Other Information That Helps Us Care for You: No Feels Safe at Home: Yes Safety Concerns: Feels Safe At This Time Diet: regular Diet Comment: regular caffeine: Yes during the past year weight has: remained stable Dental Care, Regularly: No Physical Activity Frequency: Daily Seatbelt Use: always Sunscreen Use: Yes Assistive Devices: Glasses Review of Systems Review of Systems: See HPI Physical Exam Physical Exam: Constitutional: NAD. Alert. Answering questions appropriately. Respiratory: Breathing is even, non-labored. Lungs arguello are clear to auscultation anteriorly. Cardiovascular: Regular Rate and Rhythm, no murmurs, rubs or gallops appreciated. Gastrointestinal (Abdomen): Normoactive bowel sounds x4, distended. Mildly tender in left lower quadrant. Musculoskeletal: Lying in bed comfortably. No peripheral edema. Results & Data Vital Signs (Past 12 Hours) Vital Signs Temp Pulse Resp BP Pulse Ox O2 Del Method O2 Flow Rate 09/20/24 08:16 Room Air, Nasal Cannula 2 09/20/24 07:35 98.6 F 84 22 140/87 91 Room Air Laboratory Results 09/20/24 08:10 WBC 2.31 L RBC 4.45 L Hgb 13.2 L Hct 38.9 L MCV 87.4 MCH 29.7 MCHC 33.9 RDW Std Deviation 40.3 RDW Coeff of Sindhu 12.5 Plt Count 134 MPV 10.1 Sodium 129 L Potassium 3.0 L Chloride 93 L Carbon Dioxide 27 Anion Gap 9 BUN 17 Creatinine 0.72 Est Cr Clr Drug Dosing 88.8 eGFR 100.76 BUN/Creatinine Ratio 23.6 H Glucose 113 H Calcium 8.1 L Magnesium 2.0 C-Reactive Protein 35.78 H Diagnostic Findings Abdomen/Pelvis CT 09/20/24 08:44 CT SCAN OF THE ABDOMEN AND PELVIS WITH IV CONTRAST CLINICAL HISTORY: Abdominal distention. Diverticulitis. Evaluate for perforation. COMPARISON STUDY: CT of the abdomen and pelvis September 17, 2024. PET/CT July 20, 2024. TECHNIQUE: Following the IV administration of 93 cc of Optiray 320, CT scan of the abdomen and pelvis is performed from the lung bases to the proximal femora. Images are reviewed in the axial, sagittal, and coronal planes. IV contrast was administered without complication. A dose lowering technique was utilized adhering to the principles of ALARA. CT DOSE: 927.78 mGy.cm FINDINGS: A small hiatal hernia is noted. Distal esophageal wall thickening is present. Small bilateral pleural effusions are similar to CT of September 17, 2024. Associated subpleural opacities favor atelectasis. An enlarged inferior left hilar lymph node measures at least 1.8 x 1.7 cm. This was FDG avid on PET/CT of July 20, 2024. There are no hepatic lesions. Spleen, adrenal glands, right kidney and pancreas are normal. There is a left renal cyst. There is no hydronephrosis. Layering hyperdense material within the gallbladder is present. The gallbladder is not distended. Extensive aortoiliac atherosclerotic plaque. A 3 cm infrarenal abdominal aortic aneurysm is present as well as a 2.6 and a right common iliac artery aneurysm. There is no evidence for rupture. Colonic diverticulosis is noted. Sigmoid colon wall thickening is noted. Inflammation centered on the proximal sigmoid colon is noted. Multiple adjacent gas and fluid containing collections have developed since prior CT consistent with perforation with developing abscesses. A collection superior to the sigmoid colon on image [id number] measures 4 x 1.7 cm. A collection within the left anterior paracolic gutter measures 2.6 x 1.8 cm. A few of these collections communicate. A small amount of ascites has increased. Associated small bowel wall thickening and mesenteric stranding has progressed. The proximal to mid small bowel is mildly dilated and fluid-filled. Distal small bowel is relatively decompressed. There is a large amount of poorly formed stool within the ascending colon and transverse colon. There is a moderate amount of stool within the rectum and sigmoid colon. The right colon is mildly dilated. The urinary bladder is collapsed, containing a Tong balloon. IMPRESSION: 1. Findings consistent with perforated sigmoid diverticulitis with progression since CT of September 17, 2024. Interval development of several fluid and gas containing pericolonic collections consistent with developing abscesses. Increase in ascites, mesenteric stranding and associated small bowel wall thickening which is likely reactive. 2. Proximal to mid small bowel dilatation which has developed since prior exam. This could represent a partial small bowel obstruction due to inflammation related to diverticulitis or an ileus. 3. Moderate amount of stool within the colon and rectum. Mild right colon dilatation. 4. No change in small bilateral pleural effusions. 5. Small hiatal hernia. Distal esophageal wall thickening which may represent esophagitis. ACT 112: Negative or not required by law. Electronically signed by: Len Quigley M.D. 09/20/2024 11:36 AM PG Care Time/CCT Total # of Minutes Spent Total Time Spent with Patient: Total time spent is greater than 50% in coordination of care (as documented) at patient's floor/unit and/or counseling patient: Coding Level of Care Code 46034 IN/OBS CONSULT LVL 3,45M Diagnoses Perforation of sigmoid colon due to diverticulitis K57.20
--- NOTE | 2024-09-20 15:07 | Anesthesiology Consultation ---
Date of Service September 20, 2024 Assessment & Plan (1) Encounter for pre-operative examination: Chart Review Chart Review: Acceptable Risk for Surgery History Surgery Operation Date: 09/20/24 16:55 Proposed Procedures p Esophagogastroduodenoscopy Dr. Timothy Aguirre MD Height/Weight Height: 5 ft 10 in Weight: 62.2 kg Allergies Allergy/AdvReac Type Severity Reaction Status Date / Time strawberry Allergy Mild Rash Verified 09/06/24 13:08 Iodinated Contrast Media AdvReac Intermediate Nausea Verified 09/06/24 13:08 codeine AdvReac Unknown "Sour Verified 09/06/24 13:08 stomach" Medications Home Medications Medication Instructions Recorded Confirmed Last Taken No Known Home Medications 08/17/24 09/17/24 Unknown Active Medications Generic Name Dose Route Start Last Admin Trade Name Freq PRN Reason Stop Dose Admin Acetaminophen 1,000 mg 09/19/24 21:00 09/19/24 21:09 Acetaminophen 500 Mg Tab PO 10/19/24 20:59 1,000 mg TID ANAIS Administration Cyanocobalamin 1,000 mcg 09/19/24 11:30 09/20/24 10:48 Cyanocobalamin 1000 Mcg/Ml Vial IM 09/21/24 11:29 Not Given QAM [facility] Enoxaparin Sodium 40 mg 09/18/24 09:00 09/20/24 09:17 Enoxaparin Inj 40 Mg/0.4 Ml Syr SQ 10/18/24 08:59 Not Given QAM [facility] Heparin Sodium (Porcine) 5 ml 09/18/24 03:57 09/20/24 08:50 Heparin 100 Unit/Ml 5ml Flush FLUSH 10/18/24 03:56 5 ml PRN PRN Administration Flush Hydromorphone HCl 0.5 mg 09/17/24 23:45 09/20/24 08:49 Hydromorphone Inj 0.5 Mg/0.5 Ml Syr IV 10/01/24 23:44 0.5 mg Q3H PRN Administration Pain (6,7,8,9,10) Piperacillin Sod/Tazobactam Sod 4.5 gm in 100 mls @ 25 mls/hr 09/18/24 04:00 09/20/24 12:19 Zosyn IV 09/28/24 03:59 25 mls/hr Q8H ANAIS Administration Protocol Potassium Chloride/Sodium Chloride 20 meq in 1,000 mls @ 100 mls/hr 09/20/24 09:00 09/20/24 09:16 Normal Saline W/20 Meq Kcl IV 09/21/24 10:59 125 mls/hr .Q10H ANAIS Administration Ondansetron HCl 4 mg 09/17/24 23:45 09/20/24 08:50 Ondansetron Inj 2 Mg/Ml 2 Ml Vial IV 10/17/24 23:44 4 mg Q4H PRN Administration Nausea Tamsulosin HCl 0.4 mg 09/18/24 09:00 09/20/24 08:55 Tamsulosin Hcl 0.4 Mg Cap PO 10/18/24 08:59 Not Given QAM ANAIS Past Medical History Medical History ASCVD (arteriosclerotic cardiovascular disease) mild-mod coronary artery calcifications seen on PET imaging 07/2024 Prediabetes Adenocarcinoma of lung 07/15/24 COPD with emphysema Hx of chronic bronchitis Blood pressure elevated without history of HTN Hx History of alcohol abuse Past Family History Family History Mother Breast cancer Grandmother (Paternal) Myocardial infarction Father Diabetes Heart disease Other Colorectal cancer Denies family history of Ovarian cancer Prostate cancer Past Surgical History Surgical History Port-A-Cath in place (08/24/24) Insertion of Access Port with Fluoroscopy(Not Applicable) - Jorge Valle, , FACS History of bronchoscopy bronchoscopy, EBUS 07/13/24; GA: MAC#3, ETT#8.5, Gr View 1 Hx of colonoscopy 2014 History of tympanoplasty of right ear Vasectomy status History of surgery on lower extremity metal romelia in left leg Social History Smoking Status: Former smoker Do You Dip or Chew Tobacco: Yes Hx Alcohol Use: No Hx Substance Use: Yes substance use type: marijuana Physical Exam Vital Signs Last Vital Signs Temp 37.6 C H 09/20/24 15:00 Pulse 90 09/20/24 15:00 Resp 18 09/20/24 15:00 BP 128/80 09/20/24 15:00 Pulse Ox 94 09/20/24 15:00 O2 Del Method Room Air 09/20/24 15:00 O2 Flow Rate 2 09/20/24 08:16 Testing Laboratory Results 09/20/24 08:10 09/20/24 08:10 PT 10.4 Seconds (9.0-12.0) 09/17/24 20:21 INR 1.0 (0.9-1.1) 09/17/24 20:21 APTT 22 Seconds (21-31) 09/17/24 20:21 Hemoglobin A1c 6.5 % (4.5-5.6) H 09/19/24 06:32 Urine Color Yellow 09/17/24 20:33 Urine Appearance Clear (Clear) 09/17/24 20: Urine pH 5.5 (4.5-7.5) 09/17/24 20: Ur Specific [place] 1.019 (1.000-1.030) 09/17/24 20:33 Urine Protein Trace (Negative) H 09/17/24 20:33 Urine Glucose (UA) Negative (Negative) 09/17/24 20:33 Urine Ketones Negative (Negative) 09/17/24 20:33 Urine Nitrite Negative (Negative) 09/17/24 20:33 Ur Leukocyte Esterase Negative (Negative) 09/17/24 20:33 Urine WBC (Auto) 0-5 /hpf (0-5) 09/17/24 20:33 Urine RBC (Auto) 0-2 /hpf (0-2) 09/17/24 20:33 U Hyaline Cast (Auto) 0-2 /lpf (0-2) 09/17/24 20:33 U Epithel Cells (Auto) 0-2 /hpf (0-2) 09/17/24 20:33 Urine Bacteria (Auto) None Seen (None Seen) 09/17/24 20:33 Echocardiogram Date: 09/18/24 EF: 60-65% LV Function: normal Valvular Disease: + no significant valvular disease
--- NOTE | 2024-09-20 16:15 | Communication Note ---
Date of Service: September 20, 2024 EGD NG placed into the antrum of the stomach. Patient had a small hiatal hernia. No Zenker's seen. Some fluid in the fundus of the stomach which was suctioned to decompress. Some withdrawal of the NG on scope withdrawal reposition. Seems to be in endoscopic adequate position. KUB to document proper placement. Can be used immediately for low intermittent suction.
--- NOTE | 2024-09-20 16:16 | Communication Note ---
Date of Service: September 20, 2024 Chart review. Patient has worsening diverticulitis ascites potential abscess. He is developing leukopenia which probably related to his chemo and is febrile. Patient may need operative intervention. Potential tertiary referral. Reconsult GI as needed
--- NOTE | 2024-09-20 16:49 | Communication Note ---
Date of Service: September 20, 2024 KUB checked NG appears to be in the antrum of the stomach. Can use for low intermittent suction
--- NOTE | 2024-09-20 17:05 | XRay Report ---
INDICATION: NG tube placement. TECHNIQUE: One view of the abdomen. COMPARISON: CT from 04/19/2024. FINDINGS/IMPRESSION: Enteric tube in the stomach. Electronically signed by Reji Hogan 09-20-2024 5:02 PM
--- NOTE | 2024-09-20 17:18 | Anesthesiology Progress Note ---
Date of Service September 20, 2024 Anesthesia Post Procedure Vital Signs Vital Signs: Temp Pulse Resp BP Pulse Ox O2 Del Method O2 Flow Rate 09/20/24 16:52 86 20 138/86 94 Room Air 09/20/24 16:37 90 20 138/85 92 Room Air 09/20/24 16:22 92 H 20 116/85 93 Room Air 09/20/24 15:24 38.2 C H 88 16 159/89 H 92 Room Air 09/20/24 15:00 37.6 C H 90 18 128/80 94 Room Air 09/20/24 08:16 Room Air, Nasal Cannula 2 09/20/24 07:35 37.0 C 84 22 140/87 91 Room Air 09/19/24 19:24 37.5 C 98 H 18 146/73 H 93 Room Air Pain Intensity Abdomen: Pain Intensity: 4 Transfer of Care Handoff Completed per policy Notes Mental Status: alert / awake / arousable Patient Amnestic to Procedure: Yes Nausea / Vomiting: adequately controlled Pain: adequately controlled Airway Patency, RR, SpO2: stable & adequate BP & HR: stable & adequate Hydration State: stable & adequate Anesthetic Complications: no major complications apparent
[2024-09-20] MEDS ORDERED: CHLORASEPTIC (PHENOL) 1.4% SOLN 180 ML BTL MT PRN (17:52)
[2024-09-20] MEDS: LIDOCAINE 2% 2 ML VIAL/AMP(20MG/ML) INFIL ONE ×2 (18:10)
[2024-09-20] MEDS: PROPOFOL IV EMULSION 10 MG/ML 20 ML VIAL IV ONE ×2 (18:10→18:11)
[2024-09-20] MEDS: HYDROmorphone INJ 0.5 MG/0.5 ML SYR IV PRN (18:19)
[2024-09-20] MEDS: ACETAMINOPHEN 1,000 MG/100 ML VIAL IV SCH (18:22)
[2024-09-20] MEDS: BENZOCAINE/MENTHOL 18 LOZ/1 BOX MT PRN (20:06)
[2024-09-20 20:47] LABS: BUN Creatinine Ratio 23.4 (10-20); Calcium 8.1 mg/dl (8.6-10.3); Potassium 3.2 mmol/L (3.5-5.1)
[2024-09-20] MEDS: bisacodyL 10 MG SUPP PR STA (21:43)
[2024-09-20] MEDS: POTASSIUM CHLORIDE / WTR 10 MEQ/100 ML PLCT IV SCH (22:02)
[2024-09-21 06:23] LABS: Hematocrit (blood only) 37.1 % (42.0-52.0); Hemoglobin 12.8 g/dl (14.0-18.0); Mean Corpuscular Hgb Conc 34.5 g/dL (32.0-36.0); Mean Corpuscular Volume 87.1 fL (80.0-100.0); Mean Platelet Volume 10.5 fL (9.4-12.4); Platelet Count 118 K/uL (130-400); RDW Coefficient of Variation 12.4 % (11.5-14.5); RDW Standard Deviation 39.5 fL (36.4-46.3); Red Blood Count 4.26 M/uL (4.70-6.10); White Blood Count 1.49 K/ul (4.8-10.8)
[2024-09-21 06:26] LABS: BUN Creatinine Ratio 20.2 (10-20); C Reactive Protein 29.14 mg/dl (0-0.5); Calcium 8.1 mg/dl (8.6-10.3); Creatinine Clr Calc Pharmacy 67.3 ml/min; Magnesium 2.1 mg/dl (1.7-2.4); Potassium 3.4 mmol/L (3.5-5.1)
[2024-09-21] MEDS: HYDROmorphone INJ 0.5 MG/0.5 ML SYR IV PRN (06:38)
[2024-09-21 08:00] LABS: ALC (manual) 0.54 K/uL (1.2-3.4); ANC (manual) 0.76 K/uL (1.4-6.5); Dohle Bodies 1+; Echinocytes 1+; Eosinophils # (manual) 0.07 K/uL (0-0.50); Eosinophils % (manual) 5 %; Hypersegmented Neutrophils 1+; Lymphocytes # (manual) 0.54 K/uL (1.2-3.4); Lymphocytes % (manual) 36 %; Monocytes # (manual) 0.12 K/uL (0.11-0.59); Monocytes % (manual) 8 %; Neutrophils # (manual) 0.76 K/uL (1.40-6.50); Neutrophils % (manual) 51 %; Platelet Estimate Decreased (Normal); Toxic Granulation 1+; Toxic Vacuolation 1+
--- NOTE | 2024-09-21 08:47 | Surgery Progress Note ---
Date of Service September 21, 2024 Assessment & Plan (1) Perforation of sigmoid colon due to diverticulitis: Plan: con't NG, possibly out tomorrow check KUB in AM con't abx some improvement Admission and Anticipated Discharge Date Admission Date: September 17, 2024 Subjective feels better passing flatus less pain Review of Systems Constitutional: no chills Respiratory: no cough and no dyspnea Cardiovascular: no chest pain Gastrointestinal: + abdominal pain; no nausea and no vomit ing Neurologic: + generalized weakness; no localized wea kness Psychiatric: no behavioral changes Hematologic / Lymphatic: no easy bleeding and no easy bruising Physical Exam Constitutional: WD/WN, vitals as above Respiratory: normal respiratory effort Cardiovascular: Rate/Rhythm: regular rate and regular rhythm Gastrointestinal (Abdomen): Inspection/Auscultation: abdomen normal to in spection, + abdomen distended and normal bowel sounds Percussion/Palpation: + abdomen tender and abdomen soft; no guarding and abdomen not rigid Musculoskeletal: Head/Neck/Chest: normocephalic and head atraumatic Skin: no rashes, warm and dry Results & Data Vital Signs (Past 12 Hours) Vital Signs Temp Pulse Pulse Resp BP Pulse Ox O2 Del Method 09/21/24 07:17 36.3 C L 82 17 117/78 94 Room Air 09/21/24 03:32 36.6 C 72 20 170/94 H 93 Room Air 09/20/24 23:11 36.5 C 77 18 117/72 91 Room Air 09/20/24 22:01 94 H
--- NOTE | 2024-09-21 22:08 | Hospitalist Progress Note ---
Date of Service September 21, 2024 Assessment & Plan (1) Acute diverticulitis: (2) Adenocarcinoma of lung: (3) Urinary retention: Plan 64 year old male with past medical history of FULL CODE @ home, underweight with BMI 17.4 (height 152.4 cm; weight 55.0 kg), diet-controlled DM2 with HbA1c 6.5% (09/19/2024, 6:32am), former tobacco abuse with no subsequent diagnosis of COPD, not on home O2 or home steroids, subsequent diagnosis of poorly differentiated left upper lung adenocarcinoma (as per 07/13/2024 left lung biopsy, [facility] Pathologist Dr. Pepito Hebert), started on chemotherapy recently, who presented to [facility] ER on 09/17/2024 with complaints of lower abdominal pain, and CT abdomen/pelvis with IV contrast (09/17/2024, 8:27pm) showing acute sigmoid diverticulitis without perforation. Patient also developed acute urinary retention and required Sherman catheter on admission date 09/17/2024. Patient was subsequently admitted to the inpatient hospitalist service @ [facility] on 09/17/2024 with the following diagnoses: 1. Sepsis due to acute sigmoid diverticulitis without perforation, now with acute perforation and acute partial SBO (as per 09/20/2024, 8:44am CT abd/pelvis with IV contrast. 2. Acute urinary retention, of unclear etiology. 3. Acute type II NSTEMI, most probably due to sepsis. The following medical issues are being addressed: #Sepsis secondary to diverticulitis, present on admission #Acute diverticulitis with perforation and developing abscess No colonoscopy for 15 years therefore should follow up for this in 4-6 weeks with PCP for referral to GI White count improving Lactic acid levels have normalized Continue IV fluid hydration with normal saline +20 mEq of KCl x 24 hours, reevaluate fluids in a.m. based on repeat BMP and electrolytes Continue IV Zosyn (day #4) Analgesia with Tylenol IV as needed and Dilaudid IV as needed for severe pain Repeat CT scan (09/20/2024, 8:44am) shows perforated diverticulitis with abscess, no free air Await repeat KUB in the 09/22/2024 am with NG tube decompressing the stomach on 09/21/2024 and patient reporting passage of both flatus and small bowel x 1 movement on 09/21/2024. #Acute urinary retention CT taken after voiding in the ER, 900ml retention in sherman Continue sherman catheter, tamsulosin 0.4mg PO QAM Follow up with urology as outpatient for trial without catheter #Elevated troponin Likely demand ischemia in setting of sepsis Troponin improving EKG without any ischemic changes Patient without any chest pain or shortness of breath 2D echo from 09/18/2024 shows EF of 60 to 65%, no regional wall motion abnormality, no significant valvular pathology. #Diet-controlled DM2. Previously A1c 6.1 A1c 6.5 Outpatient follow-up with PCP on discharge #Hypokalemia Potassium replacement with IV fluids Monitor levels CODE STATUS: Full code DVT prophylaxis: Lovenox 40 mg subcutaneous daily Disposition: PT recommending short-term rehab on discharge, OT recommending home health services. Likely discharge in the next 3 to 4 days based on clinical improvement, surgical recommendations Care plan discussed with patient, nursing staff and family updated at bedside with patient's permission Admission and Anticipated Discharge Date Admission Date: September 17, 2024 Subjective "I feel better after the tube went in my nose yesterday afternoon (09/20/2024, 4:49pm, EGD-guided NG tube placement with GI Dr. Nicho Aguirre). I am farting and I had one small, soft bowel movement earlier today. The surgeon came in earlier today and said we can check my belly tomorrow with an x-ray and see how it goes." Review of Systems Constitutional: Negative for antecedent/coincident fevers, chills, diaphoresis, cough, wheeze, sore throat, hemoptysis, chest pains, palpitations, pleurisy, nausea, vomiting, diarrhea, abdominal pain, pelvic pain, hematemesis, hematochezia, melena, hematuria, dysuria, frequency, urgency, headaches, dizziness, lightheadedness, visual changes, hearing changes, weakness, falls, syncope, trauma, travel history, sick contacts, or food/drug ingestions novel or new. All other review of systems are reported as negative by the patient on 09/21/2024. Physical Exam Constitutional: General: Comfortable, coherent, cooperative. Wide awake and alert. Not confused, lethargic, or obtunded. Patient speaks in complete, fluent, and articulate sentences without pause, with O2 sat 95% on room air (09/21/2024, 7:19pm). HEENT: Normocephalic, atraumatic. Extra-ocular muscles intact. Pupils equally round and reactive to light. No nystagmus, gaze paresis, anisocoria, miosis, mydriasis, hyphema, scleral injection, conjunctivitis, or pterygium. No otorrhea. NG tube in situ (09/20/2024, 4:49pm, EGD-guided NG tube placement with GI Dr. Nicho Aguirre). No pharyngeal erythema, edema, or discharge. Neck: Supple, no stridor, bruit, goiter, or hepato-jugular reflux. Jugular venous pressure is estimated to be 3 cm above the sternal angle of Rojas, which in turn, is 5 cm above the level of the right atrium; with jugular venous pressure estimated to be 8 cm, then, there is no jugular venous distention on 09/21/2024. Lymphatics: No cervical (anterior/posterior), supraclavicular, infraclavicular, axillary, epitrochlear, or inguinal adenopathy. Chest: Symmetric rise and fall with respirations. Non-tender to palpation. Lungs: Clear to auscultation and percussion. No audible expiratory wheeze, egophony, pectoriloquy, increase in tactile fremitus, or flatness/dullness to percussion at the bases. Heart: Regular rate and rhythm. S1 and S2 noted. No S3 or S4 summation gallop. No tripartite friction rub. No murmur. Abdomen: Soft, non-tender, non-distended. No rebound, guarding, Chinchilla's sign, or organomegaly. Bowel sounds auscultated in all 4 quadrants. Extremities: No clubbing, cyanosis, or edema in upper extremities or lower extremities bilaterally. 2+ pedal pulses bilaterally. Skin: No decubitus ulcer or enanthem or exanthem. Genito-urinary: No urethral discharge. No sherman catheter. Neurology: Alert and oriented in regards to person, place, time, and situation. DTR+ and symmetric. 5/5 motor strength in all 4 extremities, both proximally and distally. No pronator drift. No facial droop. No dysarthria. Psychiatry: No homicidal ideation. No suicidal ideation. No flat affect; smiles appropriately. Results & Data Results & Data Vital Signs (Past 12 Hours) Vital Signs Temp Pulse Pulse Resp BP Pulse Ox O2 Del Method 09/21/24 19:19 36.5 C 92 H 20 108/77 95 Room Air 09/21/24 15:38 36.4 C L 82 23 127/73 93 Room Air 09/21/24 14:22 75 09/21/24 10:57 36.4 C L 82 20 149/99 H 95 Room Air Laboratory Results Abnormal lab results 09/21/24 09/21/24 Range/Units 05:18 08:17 WBC 1.49 L (4.8-10.8) K/ul RBC 4.26 L (4.70-6.10) M/uL Hgb 12.8 L (14.0-18.0) g/dl Hct 37.1 L (42.0-52.0) % Plt Count 118 L (130-400) K/uL Neutrophils # (Manual) 0.76 L (1.40-6.50) K/uL Total Absolute Neuts 0.76 L* (1.4-6.5) K/uL Lymphocytes # (Manual) 0.54 L (1.2-3.4) K/uL Total Abs Lymphocytes 0.54 L (1.2-3.4) K/uL Platelet Estimate Decreased L (Normal) Sodium 130 L (136-145) mmol/L Potassium 3.4 L (3.5-5.1) mmol/L Chloride 94 L (98-107) mmol/L BUN/Creatinine Ratio 20.2 H (10-20) Glucose 100 H (70-99(Fasting)) mg/dl Calcium 8.1 L (8.6-10.3) mg/dl AST 12 L (13-39) U/L C-Reactive Protein 29.14 H (0-0.5) mg/dl Albumin 3.0 L (3.4-5.0) gm/dl Procalcitonin 5.21 H (0-0.5) ng/ml PG Care Time/CCT Total # of Minutes Spent Total Time Spent with Patient: Total time spent is greater than 50% in coordination of care (as documented) at patient's floor/unit and/or counseling patient: Coding Level of Care Code 47017 SUB INP/OBS CARE 50MIN Diagnoses Acute diverticulitis K57.92 Adenocarcinoma of lung C34.90 Urinary retention R33.9
[2024-09-21] MEDS: POTASSIUM CHLORIDE / WTR 10 MEQ/100 ML PLCT IV SCH (22:54)
[2024-09-22 06:03] LABS: BUN Creatinine Ratio 25.3 (10-20); Calcium 8.5 mg/dl (8.6-10.3); Creatinine Clr Calc Pharmacy 75.4 ml/min; Potassium 3.5 mmol/L (3.5-5.1)
[2024-09-22 07:39] LABS: Hematocrit (blood only) 38.4 % (42.0-52.0); Hemoglobin 13.3 g/dl (14.0-18.0); Mean Corpuscular Hemoglobin 30.2 pg (25.0-34.0); Mean Corpuscular Hgb Conc 34.6 g/dL (32.0-36.0); Mean Corpuscular Volume 87.1 fL (80.0-100.0); Mean Platelet Volume 10.1 fL (9.4-12.4); Platelet Count 104 K/uL (130-400); RDW Coefficient of Variation 12.4 % (11.5-14.5); RDW Standard Deviation 39.7 fL (36.4-46.3); Red Blood Count 4.41 M/uL (4.70-6.10); White Blood Count 2.81 K/ul (4.8-10.8)
[2024-09-22 07:45] LABS: Basophils # (auto) 0.01 K/uL (0.00-0.20); Basophils % (auto) 0.4 %; Dohle Bodies 2+; Eosinophils # (auto) 0.04 K/uL (0.00-0.50); Eosinophils % (auto) 1.4 %; Immature Granulocytes # (auto) 0.14 K/uL (0.01-0.20); Lymphocytes # (auto) 0.59 K/uL (1.20-3.40); Monocytes # (auto) 0.31 K/uL (0.11-0.59); Neutrophils # (auto) 1.72 K/uL (1.40-6.50); Neutrophils % (auto) 61.2 %; Toxic Granulation 2+
--- NOTE | 2024-09-22 08:04 | XRay Report ---
EXAM: XR KUB/Abdomen 1 view CLINICAL HISTORY: ileus TECHNIQUE: X-ray images of the abdomen were obtained in supine and upright positions. COMPARISON: 09/20/2024 15:42:00 MEDICAL REFERRAL COORDINATOR 09/19/2024 10:55:11 MEDICAL REFERRAL COORDINATOR FINDINGS: Gas Pattern: Gas pattern within the abdomen is normal. No evidence of bowel obstruction or distention. Soft Tissues: Soft tissues of the abdomen appear normal without evidence of masses or calcifications. Liver, spleen, and kidneys are of normal size and position. NG tube in the stomach. IMPRESSION: Normal abdominal X-ray. No acute abnormalities identified. Previous air fluid level is completely resolved. Electronically signed by Pedro 09-22-2024 08:03 AM
--- NOTE | 2024-09-22 08:47 | Surgery Progress Note ---
Date of Service September 22, 2024 Assessment & Plan (1) Perforation of sigmoid colon due to diverticulitis: Plan: avss neutropenic, wbc 2k mild nausea KUB unreamrkable today +bowel function Plan: NGT clamp trial encouraged ambulation continue IV zosyn pain management as needed sips of Clears later today if tolerates clamp trial continue medical management Discussed with Dr. gillis who agrees with above. Admission and Anticipated Discharge Date Admission Date: September 17, 2024 Subjective feeling better passing gas and had two bowel movements yesterday still belching and hiccups with some nausea abdominal pain stable Physical Exam Constitutional: WD/WN, vitals as above no acute distress, not ill appearing, not in distress and not diaphoretic Respiratory: normal respiratory effort; no respiratory distress, no labored breathing and no retractions Gastrointestinal (Abdomen): Inspection/Auscultation: abdomen normal to inspection and normal bowel sounds; abdomen not distended Percussion/Palpation: + abdomen tender (LUQ and LLQ), + guarding (Voluntary guarding LUQ and LLQ) and abdomen soft; abdomen not rigid and abdomen not firm Skin: no rashes, warm and dry Psychiatric: Orientation: alert and oriented x 3 Results & Data Vital Signs (Past 12 Hours) Vital Signs Temp Pulse Pulse Resp BP Pulse Ox O2 Del Method 09/22/24 07:29 36.4 C L 76 16 104/61 95 Room Air 09/22/24 03:03 36.7 C 70 18 136/80 95 Room Air 09/21/24 22:54 36.4 C L 82 18 150/82 H 94 Room Air 09/21/24 21:54 76 Laboratory Results 09/22/24 Range/Units 05:27 WBC 2.81 L (4.8-10.8) K/ul RBC 4.41 L (4.70-6.10) M/uL Hgb 13.3 L (14.0-18.0) g/dl Hct 38.4 L (42.0-52.0) % MCV 87.1 (80.0-100.0) fL MCH 30.2 (25.0-34.0) pg MCHC 34.6 (32.0-36.0) g/dL RDW Std Deviation 39.7 (36.4-46.3) fL RDW Coeff of Sindhu 12.4 (11.5-14.5) % Plt Count 104 L (130-400) K/uL MPV 10.1 (9.4-12.4) fL Immature Gran % (Auto) 5.0 % Neut % (Auto) 61.2 % Lymph % (Auto) 21.0 % Dubois % (Auto) 11.0 % Eos % (Auto) 1.4 % Baso % (Auto) 0.4 % Neut # (Auto) 1.72 (1.40-6.50) K/uL Lymph # (Auto) 0.59 L (1.20-3.40) K/uL Dubois # (Auto) 0.31 (0.11-0.59) K/uL Eos # (Auto) 0.04 (0.00-0.50) K/uL Baso # (Auto) 0.01 (0.00-0.20) K/uL Immature Gran # (Auto) 0.14 (0.01-0.20) K/uL Toxic Granulation 2+ Dohle Bodies 2+ Sodium 128 L (136-145) mmol/L Potassium 3.5 (3.5-5.1) mmol/L Chloride 90 L (98-107) mmol/L Carbon Dioxide 28 (21-32) mmol/L Anion Gap 10 (3-11) BUN 19 (6-23) mg/dl Creatinine 0.75 (0.6-1.4) mg/dl Est Cr Clr Drug Dosing 75.4 ml/min eGFR 99.53 BUN/Creatinine Ratio 25.3 H (10-20) Glucose 107 H (70-99(Fasting)) mg/dl Lactate 1.0 (0.4-2.0) mmol/L Calcium 8.5 L (8.6-10.3) mg/dl Procalcitonin 3.58 H (0-0.5) ng/ml
[2024-09-22] MEDS ORDERED: VITAMIN B COMPLEX TAB PO SCH (09:00)
--- NOTE | 2024-09-22 20:41 | Hospitalist Progress Note ---
Date of Service September 22, 2024 Assessment & Plan (1) Acute diverticulitis: (2) Adenocarcinoma of lung: (3) Urinary retention: Plan 64 year old male with past medical history of FULL CODE @ home, underweight with BMI 17.4 (height 152.4 cm; weight 55.0 kg), diet-controlled DM2 with HbA1c 6.5% (09/19/2024, 6:32am), former tobacco abuse with no subsequent diagnosis of COPD, not on home O2 or home steroids, subsequent diagnosis of poorly differentiated left upper lung adenocarcinoma (as per 07/13/2024 left lung biopsy, [facility] Pathologist Dr. Pepito Hebert), started on chemotherapy recently, who presented to [facility] ER on 09/17/2024 with complaints of lower abdominal pain, and CT abdomen/pelvis with IV contrast (09/17/2024, 8:27pm) showing acute sigmoid diverticulitis without perforation. Patient also developed acute urinary retention and required Sherman catheter on admission date 09/17/2024. Patient was subsequently admitted to the inpatient hospitalist service @ [facility] on 09/17/2024 with the following diagnoses: 1. Sepsis due to acute sigmoid diverticulitis without perforation, now with acute perforation and acute partial SBO (as per 09/20/2024, 8:44am CT abd/pelvis with IV contrast. 2. Acute urinary retention, of unclear etiology. 3. Acute type II NSTEMI, most probably due to sepsis. The following medical issues are being addressed: #Sepsis secondary to diverticulitis, present on admission #Acute diverticulitis with perforation and developing abscess No colonoscopy for 15 years therefore should follow up for this in 4-6 weeks with PCP for referral to GI White count improving Lactic acid levels have normalized Continue IV fluid hydration with normal saline +20 mEq of KCl x 24 hours, reeval uate fluids in a.m. based on repeat BMP and electrolytes Continue IV Zosyn (day #5) Analgesia with Tylenol IV as needed and Dilaudid IV as needed for severe pain Repeat CT scan (09/20/2024, 8:44am) showed perforated diverticulitis with abscess, no free air KUB (09/22/2024, 7:00am) shows no obstruction. #Acute urinary retention CT taken after voiding in the ER, 900ml retention in sherman Continue sherman catheter, tamsulosin 0.4mg PO QAM Follow up with urology as outpatient for trial without catheter #Elevated troponin Likely demand ischemia in setting of sepsis Troponin improving EKG without any ischemic changes Patient without any chest pain or shortness of breath 2D echo from 09/18/2024 shows EF of 60 to 65%, no regional wall motion abnormality, no significant valvular pathology. #Diet-controlled DM2. Previously A1c 6.1% (07/18/2024, 10:54am). A1c 6.5% (09/19/2024, 6:32am). Outpatient follow-up with PCP on discharge #Acute hypokalemia cf., K 4.2 mmol/L (09/17/2024, 8:21pm). cf., K 5.1 mmol/L (09/18/2024, 9:02am). cf., K 3.3 mmol/L (09/19/2024, 6:32am). cf., K 3.0 mmol/L (09/20/2024, 8:10am). cf., K 3.2 mmol/L (09/20/2024, 7:49pm). cf., K 3.4 mmol/L (09/21/2024, 5:18am). cf., K 3.5 mmol/L (09/22/2024, 5:27am). Supplement with KCl 40meq PO x 1 dose now (09/22/2024, 8:36pm) given K 3.5 mmol/L (09/22/2024, 5:27am) and check repeat K level in the 09/23/2024 am. #Acute hyponatremia cf., Na 137 mmol/L (09/17/2024, 8:21pm). cf., Na 133 mmol/L (09/18/2024, 9:02am). cf., Na 131 mmol/L (09/19/2024, 6:32am). cf., Na 129 mmol/L (09/20/2024, 8:10am). cf., Na 129 mmol/L (09/20/2024, 7:49pm). cf., Na 130 mmol/L (09/21/2024, 5:18am). cf., Na 128 mmol/L (09/22/2024, 5:27am). Etiology unclear. Check urine Na (09/22/2024, 8:28pm) to screen for SIADH as a potential etiology for acute hyponatremia. CODE STATUS: Full code DVT prophylaxis: Lovenox 40 mg subcutaneous daily Disposition: PT recommending short-term rehab on discharge, OT recommending home health services. Likely discharge in the next 3 to 4 days based on clinical improvement, surgical recommendations Care plan discussed with patient, nursing staff and family updated at bedside with patient's permission Admission and Anticipated Discharge Date Admission Date: September 17, 2024 Subjective "I feel very good. I only have a little belly pain now and then. I am still passing gas and having bowel movements today (09/22/2024). The x-ray of my belly showed I don't have any more blockage today, so they took out the tube from my nose. I feel a lot better. When can I go home? Tomorrow? My daughter keeps bugging me and asks me when I can go back home?" Review of Systems Constitutional: Negative for antecedent/coincident fevers, chills, diaphoresis, cough, wheeze, sore throat, hemoptysis, chest pains, palpitations, pleurisy, nausea, vomiting, diarrhea, abdominal pain, pelvic pain, hematemesis, hematochezia, melena, hematuria, dysuria, frequency, urgency, headaches, dizziness, lightheadedness, visual changes, hearing changes, weakness, falls, syncope, trauma, travel history, sick contacts, or food/drug ingestions novel or new. All other review of systems are reported as negative by the patient on 09/22/2024. Physical Exam Constitutional: General: Comfortable, coherent, cooperative. Wide awake and alert. Not confused, lethargic, or obtunded. Patient speaks in complete, fluent, and articulate sentences without pause, with O2 sat 95% on room air (09/21/2024, 7:19pm)(09/22/2024, 7:44pm). HEENT: Normocephalic, atraumatic. Extra-ocular muscles intact. Pupils equally round and reactive to light. No nystagmus, gaze paresis, anisocoria, miosis, mydriasis, hyphema, scleral injection, conjunctivitis, or pterygium. No otorrhea. NG tube in situ (09/20/2024, 4:49pm, EGD-guided NG tube placement with GI Dr. Nicho Aguirre) NG tube removed (09/22/2024, 8:47am, GenSurg Ms. Liu MEIR Barajas). No pharyngeal erythema, edema, or discharge. Neck: Supple, no stridor, bruit, goiter, or hepato-jugular reflux. Jugular venous pressure is estimated to be 3 cm above the sternal angle of [place], which in turn, is 5 cm above the level of the right atrium; with jugular venous pressure estimated to be 8 cm, then, there is no jugular venous distention on 09/21/2024. Lymphatics: No cervical (anterior/posterior), supraclavicular, infraclavicular, axillary, epitrochlear, or inguinal adenopathy. Chest: Symmetric rise and fall with respirations. Non-tender to palpation. Lungs: Clear to auscultation and percussion. No audible expiratory wheeze, egophony, pectoriloquy, increase in tactile fremitus, or flatness/dullness to percussion at the bases. Heart: Regular rate and rhythm. S1 and S2 noted. No S3 or S4 summation gallop. No tripartite friction rub. No murmur. Abdomen: Soft, non-tender, non-distended. No rebound, guarding, Mu rphy's sign, or organomegaly. Bowel sounds auscultated in all 4 quadrants. Extremities: No clubbing, cyanosis, or edema in upper extremities or lower extremities bilaterally. 2+ pedal pulses bilaterally. Skin: No decubitus ulcer or enanthem or exanthem. Genito-urinary: No urethral discharge. No sherman catheter. Neurology: Alert and oriented in regards to person, place, time, and situation. DTR+ and symmetric. 5/5 motor strength in all 4 extremities, both proximally and distally. No pronator drift. No facial droop. No dysarthria. Psychiatry: No homicidal ideation. No suicidal ideation. No flat affect; smiles appropriately. Results & Data Results & Data Vital Signs (Past 12 Hours) Vital Signs Temp Pulse Pulse Resp BP Pulse Ox O2 Del Method 09/22/24 19:44 Room Air 09/22/24 19:23 37.7 C H 75 18 116/80 95 Room Air 09/22/24 15:41 36.8 C 83 18 151/86 H 94 Room Air 09/22/24 14:35 65 09/22/24 10:47 36.4 C L 73 18 123/70 96 Room Air Laboratory Results WBC 2.31, no differential, Hb 13.2, MCV 87.4, MCHC 33.9, platelet 134 (09/20/2024, 8:10am). WBC 1.49, no differential, Hb 12.8, MCV 87.1, MCHC 34.5, platelet 118 (09/21/2024, 5:18am). WBC 2.81, N61 L21 M11 E1, Hb 13.3, MCV 98.1, MCHC 34.6, platelet 104 (09/22/2024, 5:27am). Na 137, K 4.2, BUN 23, creatinine 0.90, glucose 133 (09/17/2024, 8:21pm). Na 133, K 5.1, BUN 19, creatinine 1.07, glucose 124 (09/18/2024, 9:02am). Na 131, K 3.3, BUN 19, creatinine 0.83, glucose 123 (09/19/2024, 6:32am). Na 129, K 3.0, BUN 17, creatinine 0.72, glucose 113 (09/20/2024, 8:10am). Na 129, K 3.2, BUN 18, creatinine 0.77, glucose 103 (09/20/2024, 7:49pm). Na 130, K 3.4, BUN 17, creatinine 0.84, glucose 100 (09/21/2024, 5:18am). Na 128, K 3.5, BUN 19, creatinine 0.75, glucose 107 (09/22/2024, 5:27am). Urine sodium (09/22/2024, 8:28pm): (screen for SIADH as a potential etiology for acute hyponatremia). Diagnostic Findings CT abd/pelvis with IV contrast (09/17/2024, 8:27pm): 1. Uncomplicated sigmoid diverticulitis 2. Small bilateral pleural effusions right greater than left 3. Right common iliac artery aneurysm measuring 2.6 cm 4. Markedly distended urinary bladder AXR, 2 views (09/19/2024, 11:16am): 1. Findings of diverticulitis seen on the recent CT scan are not visualized by plain film. 2. Mildly dilated upper abdominal small bowel loop, possible ileus or reactive inflammation due to diverticulitis. No other bowel distention seen. No gross free air seen. CT abd/pelvis with IV contrast (09/20/2024, 8:44am): 1. Findings consistent with perforated sigmoid diverticulitis with progression since CT of September 17, 2024. Interval development of several fluid and gas containing pericolonic collections consistent with developing abscesses. Increase in ascites, mesenteric stranding and associated small bowel wall thickening which is likely reactive. 2. Proximal to mid small bowel dilatation which has developed since prior exam. This could represent a partial small bowel obstruction due to inflammation related to diverticulitis or an ileus. 3. Moderate amount of stool within the colon and rectum. Mild right colon dilatation. 4. No change in small bilateral pleural effusions. 5. Small hiatal hernia. Distal esophageal wall thickening which may represent esophagitis. KUB (09/20/2024, 4:17pm): 1. NGT placement in situ. KUB (09/22/2024, 7:00am): 1. NGT in stomach. 2. No obstruction. PG Care Time/CCT Total # of Minutes Spent Total Time Spent with Patient: Total time spent is greater than 50% in coordination of care (as documented) at patient's floor/unit and/or counseling patient: Coding Level of Care Code 08483 SUB INP/OBS CARE 2/35MIN Diagnoses Acute diverticulitis K57.92 Adenocarcinoma of lung C34.90 Urinary retention R33.9
[2024-09-22] MEDS: POTASSIUM CHLORIDE CRTAB 20 MEQ TABCR PO STA (21:38)
[2024-09-23 05:49] LABS: Hematocrit (blood only) 39.5 % (42.0-52.0); Hemoglobin 13.4 g/dl (14.0-18.0); Mean Corpuscular Hemoglobin 29.4 pg (25.0-34.0); Mean Corpuscular Hgb Conc 33.9 g/dL (32.0-36.0); Mean Corpuscular Volume 86.6 fL (80.0-100.0); Mean Platelet Volume 11.1 fL (9.4-12.4); Platelet Count 108 K/uL (130-400); RDW Coefficient of Variation 12.4 % (11.5-14.5); RDW Standard Deviation 39.3 fL (36.4-46.3); Red Blood Count 4.56 M/uL (4.70-6.10); White Blood Count 5.47 K/ul (4.8-10.8)
[2024-09-23 05:57] LABS: BUN Creatinine Ratio 27.9 (10-20); Calcium 8.4 mg/dl (8.6-10.3); Creatinine Clr Calc Pharmacy 106.7 ml/min; Potassium 3.7 mmol/L (3.5-5.1)
[2024-09-23 06:07] LABS: Basophils # (auto) 0.04 K/uL (0.00-0.20); Basophils % (auto) 0.7 %; Dohle Bodies 1+; Eosinophils # (auto) 0.04 K/uL (0.00-0.50); Eosinophils % (auto) 0.7 %; Immature Granulocytes # (auto) 0.11 K/uL (0.01-0.20); Lymphocytes # (auto) 0.81 K/uL (1.20-3.40); Lymphocytes % (auto) 14.8 %; Monocytes # (auto) 0.47 K/uL (0.11-0.59); Monocytes % (auto) 8.6 %; Neutrophils % (auto) 73.2 %; Toxic Granulation 1+
--- NOTE | 2024-09-23 09:39 | Surgery Progress Note ---
Date of Service September 23, 2024 Assessment & Plan (1) Perforation of sigmoid colon due to diverticulitis: Plan: avss wbc 5k +bowel function Plan: full liquids for lunch will eventually advance to low fiber and will need low fiber diet on discharge for a few weeks continue IV abx for another 1-2 days pending clinical examination, although he hsa been on IV abx for 6 days he developed perforation with small abscess on IV Zosyn and was neutropenic. Given this will need longer course of IV abx than the typical 3-4 days. Will need outpatient colonoscopy in 6-8 weeks for evaluation, last colonoscopy 15 years ago ambulate continue medical management sherman management per medical team but patient wants it removed pain management as needed dr. oliva on for weekend Admission and Anticipated Discharge Date Admission Date: September 17, 2024 Subjective feeling better, "i want to go home " no n,v passing gas, bm yesterday pain still present but slowly improving tolerating clear liquids no fevers or chills wants sherman out Physical Exam Constitutional: WD/WN, vitals as above cooperative and comfortable; no acute distress and not ill appearing Gastrointestinal (Abdomen): Inspection/Auscultation: abdomen normal to inspection and + hypoactive bowel sounds; abdomen not distended and + abnormal bowel sounds Percussion/Palpation: + abdomen tender (LUQ and LLQ), + guarding (voluntary LUQ and LLQ but improving) and abdomen soft; abdomen not rigid and abdomen not firm Skin: no rashes, warm and dry Psychiatric: Orientation: alert and oriented x 3 Results & Data Vital Signs (Past 12 Hours) Vital Signs Temp Pulse Pulse Resp BP Pulse Ox O2 Del Method 09/23/24 09:16 Room Air 09/23/24 07:45 36.8 C 92 H 18 111/72 95 Room Air 09/23/24 07:21 66 09/23/24 03:21 36.6 C 78 16 122/69 95 Room Air 09/22/24 23:05 77 09/22/24 23:01 37.0 C 74 16 120/78 94 Room Air Laboratory Results 09/23/24 09/23/24 09/22/24 Range/Units 07:32 05:25 23:15 WBC 5.47 (4.8-10.8) K/ul RBC 4.56 L (4.70-6.10) M/uL Hgb 13.4 L (14.0-18.0) g/dl Hct 39.5 L (42.0-52.0) % MCV 86.6 (80.0-100.0) fL MCH 29.4 (25.0-34.0) pg MCHC 33.9 (32.0-36.0) g/dL RDW Std Deviation 39.3 (36.4-46.3) fL RDW Coeff of Sindhu 12.4 (11.5-14.5) % Plt Count 108 L (130-400) K/uL MPV 11.1 (9.4-12.4) fL Immature Gran % (Auto) 2.0 % Neut % (Auto) 73.2 % Lymph % (Auto) 14.8 % [place] % (Auto) 8.6 % Eos % (Auto) 0.7 % Baso % (Auto) 0.7 % Neut # (Auto) 4.00 (1.40-6.50) K/uL Lymph # (Auto) 0.81 L (1.20-3.40) K/uL [place] # (Auto) 0.47 (0.11-0.59) K/uL Eos # (Auto) 0.04 (0.00-0.50) K/uL Baso # (Auto) 0.04 (0.00-0.20) K/uL Immature Gran # (Auto) 0.11 (0.01-0.20) K/uL Toxic Granulation 1+ Dohle Bodies 1+ Sodium 129 L (136-145) mmol/L Potassium 3.7 (3.5-5.1) mmol/L Chloride 92 L (98-107) mmol/L Carbon Dioxide 29 (21-32) mmol/L Anion Gap 8 (3-11) BUN 19 (6-23) mg/dl Creatinine 0.68 (0.6-1.4) mg/dl Est Cr Clr Drug Dosing 106.7 ml/min eGFR 102.52 BUN/Creatinine Ratio 27.9 H (10-20) Glucose 113 H (70-99(Fasting)) mg/dl POC Glucose 106 H (70-99) mg/dl Lactate 0.8 (0.4-2.0) mmol/L Calcium 8.4 L (8.6-10.3) mg/dl Procalcitonin 2.08 H (0-0.5) ng/ml Ur Random Sodium 83 mmol/L Microbiology 09/21/24 08:17 Aerobic Blood Culture - Preliminary Blood No growth in Aerobic bottle after 48 hours. Anaerobic Blood Culture - Preliminary No growth in Anaerobic bottle after 48 hours. 09/21/24 08:17 Aerobic Blood Culture - Preliminary Blood No growth in Aerobic bottle after 48 hours. Anaerobic Blood Culture - Preliminary No growth in Anaerobic bottle after 48 hours.
[2024-09-23] MEDS: oxyCODONE HCL IR 5 MG TAB (IMMEDIATE RELEASE) PO PRN (16:19)
--- NOTE | 2024-09-23 18:47 | Hospitalist Progress Note ---
Date of Service September 23, 2024 Assessment & Plan (1) Acute diverticulitis: (2) Adenocarcinoma of lung: (3) Urinary retention: Plan 64 years old male with past medical history of FULL CODE @ home, underweight with BMI 17.4 (height 152.4 cm; weight 55.0 kg), diet-controlled DM2 with HbA1c 6.5% (09/19/2024, 6:32am), former tobacco abuse with no subsequent diagnosis of COPD, not on home O2 or home steroids, subsequent diagnosis of poorly differentiated left upper lung adenocarcinoma (as per 07/13/2024 left lung biopsy, [facility] Pathologist Dr. Pepito Hebert), started on chemotherapy recently, who presented to [facility] ER on 09/17/2024 with complaints of lower abdominal pain, and CT abdomen/pelvis with IV contrast (09/17/2024, 8:27pm) showing acute sigmoid diverticulitis without perforation. Patient also developed acute urinary retention and required Sherman catheter on admission date 09/17/2024. Patient was subsequently admitted to the inpatient hospitalist service @ [facility] on 09/17/2024 with the following diagnoses: 1. Sepsis due to acute sigmoid diverticulitis without perforation, now with acute perforation and acute partial SBO (as per 09/20/2024, 8:44am CT abd/pelvis with IV contrast. 2. Acute urinary retention, of unclear etiology. 3. Acute type II NSTEMI, most probably due to sepsis. The following medical issues are being addressed: #Sepsis secondary to diverticulitis, present on admission, RESOLVED. #Acute diverticulitis with perforation and developing abscess, RESOLVING non- surgically on zosyn. No colonoscopy for 15 years therefore should follow up for this in 4-6 weeks with PCP for referral to GI White count improving Lactic acid levels have normalized Continue zosyn 4.5g IV q8 x 18 doses (day #1 on 09/17/2024, 10:03pm; day #7 on 09/23/2024, 12:32pm). D/C home on 09/24/2024 am with augmentin 875mg/125mg PO q12 x 7 days (09/24/2024 am - 09/30/2024 pm) and F/U with [facility] General Surgeon Dr. Teo Chow. Analgesia with Tylenol IV as needed and Dilaudid IV as needed for severe pain Repeat CT scan (09/20/2024, 8:44am) showed perforated diverticulitis with abscess, no free air KUB (09/22/2024, 7:00am) shows no obstruction. #Acute urinary retention CT taken after voiding in the ER, 900ml retention in sherman Continue tamsulosin 0.4mg PO QAM D/C sherman now (09/23/2024, 6:46pm) and observe for spontaneous voiding as patient does not want to go home in the 09/24/2024 am with sherman catheter in situ. #Elevated troponin with troponin-I #1 47.5 pg/mL (09/17/2024, 8:21pm), troponin- I #2 52.9 pg/mL (09/17/2024, 10:13pm), troponin-I #3 39.9 pg/mL (09/18/2024, 9:02am). Likely demand ischemia in setting of sepsis EKG without any ischemic changes Patient without any chest pain or shortness of breath 2D echo from 09/18/2024 shows EF of 60 to 65%, no regional wall motion abnormality, no significant valvular pathology. Observe. #Diet-controlled DM2 with HbA1c 6.5% (09/19/2024, 6:32am) and serum glucose 113 mg/dL (09/23/2024, 5:25am). Continue carbohydrate consistent diet. #Acute hypokalemia, RESOLVED. cf., K 4.2 mmol/L (09/17/2024, 8:21pm). cf., K 5.1 mmol/L (09/18/2024, 9:02am). cf., K 3.3 mmol/L (09/19/2024, 6:32am). cf., K 3.0 mmol/L (09/20/2024, 8:10am). cf., K 3.2 mmol/L (09/20/2024, 7:49pm). cf., K 3.4 mmol/L (09/21/2024, 5:18am). cf., K 3.5 mmol/L (09/22/2024, 5:27am). Supplemented with KCl 40meq PO x 1 dose (09/22/2024, 8:36pm) given K 3.5 mmol/L (09/22/2024, 5:27am) and acute hypokalemia RESOLVED with post-supplement K 3.7 mmol/L (09/23/2024, 5:25am). Observe. #Acute hyponatremia, PERSISTENT, ASYMPTOMATIC, due to recently diagnosed poorly differentiated left upper lung adenocarcinoma (as per 07/13/2024 left lung biopsy, [facility] Pathologist Dr. Pepito Hebert), which in turn, causes SIADH as demonstrated by urine Na > 40 mmol/L (cf., urine Na 83 mmol/L (09/22/2024, 8:28pm)). cf., Na 137 mmol/L (09/17/2024, 8:21pm). cf., Na 133 mmol/L (09/18/2024, 9:02am). cf., Na 131 mmol/L (09/19/2024, 6:32am). cf., Na 129 mmol/L (09/20/2024, 8:10am). cf., Na 129 mmol/L (09/20/2024, 7:49pm). cf., Na 130 mmol/L (09/21/2024, 5:18am). cf., Na 128 mmol/L (09/22/2024, 5:27am). cf., Na 129 mmol/L (09/23/2024, 5:25am). Observe. CODE STATUS: Full code DVT prophylaxis: Lovenox 40 mg subcutaneous daily Disposition: PT recommending short-term rehab on discharge, OT recommending home health services. Likely discharge in the next 3 to 4 days based on clinical improvement, surgical recommendations Care plan discussed with patient, nursing staff and family updated at bedside with patient's permission Admission and Anticipated Discharge Date Admission Date: September 17, 2024 Subjective "I feel good today. I am still passing gas and I had one bowel movement this morning; it was soft, not hard, not diarrhea. I have little belly pain, like a 2 or a 3 (out of 10), but I don't have any nausea or vomit. I feel like I can go home, but the surgeon lady came by today and said I should stay in the hospital for today/tonight and go home tomorrow morning and so I said ok. I am not the doctor, you know." Review of Systems Constitutional: Negative for antecedent/coincident fevers, chills, diaphoresis, cough, wheeze, sore throat, hemoptysis, chest pains, palpitations, pleurisy, nausea, vomiting, diarrhea, abdominal pain, pelvic pain, hematemesis, hematochezia, melena, hematuria, dysuria, frequency, urgency, headaches, dizziness, lightheadedness, visual changes, hearing changes, weakness, falls, syncope, trauma, travel history, sick contacts, or food/drug ingestions novel or new. All other review of systems are reported as negative by the patient on 09/23/2024. Physical Exam Constitutional: General: Comfortable, coherent, cooperative. Wide awake and alert. Not confused, lethargic, or obtunded. Patient speaks in complete, fluent, and articulate sentences without pause, with O2 sat 96% on room air (09/23/2024, 3:57pm). HEENT: Normocephalic, atraumatic. Extra-ocular muscles intact. Pupils equally round and reactive to light. No nystagmus, gaze paresis, anisocoria, miosis, mydriasis, hyphema, scleral injection, conjunctivitis, or pterygium. No otorrhea. NG tube in situ (09/20/2024, 4:49pm, EGD-guided NG tube placement with GI Dr. Nicho Aguirre) NG tube removed (09/22/2024, 8:47am, GenSurg Ms. Alexa Barajas PA-C). No pharyngeal erythema, edema, or discharge. Neck: Supple, no stridor, bruit, goiter, or hepato-jugular reflux. Jugular venous pressure is estimated to be 3 cm above the sternal angle of Rojas, which in turn, is 5 cm above the level of the right atrium; with jugular venous pressure estimated to be 8 cm, then, there is no jugular venous distention on 09/23/2024. Lymphatics: No cervical (anterior/posterior), supraclavicular, infraclavicular, axillary, epitrochlear, or inguinal adenopathy. Chest: Symmetric rise and fall with respirations. Non-tender to palpation. Lungs: Clear to auscultation and percussion. No audible expiratory wheeze, egophony, pectoriloquy, increase in tactile fremitus, or flatness/dullness to percussion at the bases. Heart: Regular rate and rhythm. S1 and S2 noted. No S3 or S4 summation gallop. No tripartite friction rub. No murmur. Abdomen: Soft, non-tender, non-distended. No rebound, guarding, Chinchilla's sign, or organomegaly. Bowel sounds auscultated in all 4 quadrants. Extremities: No clubbing, cyanosis, or edema in upper extremities or lower extremities bilaterally. 2+ pedal pulses bilaterally. Skin: No decubitus ulcer or enanthem or exanthem. Genito-urinary: No urethral discharge. No sherman catheter. Neurology: Alert and oriented in regards to person, place, time, and situation. DTR+ and symmetric. 5/5 motor strength in all 4 extremities, both proximally and distally. No pronator drift. No facial droop. No dysarthria. Psychiatry: No homicidal ideation. No suicidal ideation. No flat affect; smiles appropriately. Results & Data Results & Data Vital Signs (Past 12 Hours) Vital Signs Temp Pulse Pulse Resp BP Pulse Ox O2 Del Method 09/23/24 15:57 36.9 C 79 18 144/86 H 96 Room Air 09/23/24 13:02 74 09/23/24 12:08 36.5 C 61 16 122/80 97 Room Air 09/23/24 09:16 Room Air 09/23/24 07:45 36.8 C 92 H 18 111/72 95 Room Air 09/23/24 07:21 66 Laboratory Results Procalcitonin #1 5.21 ng/mL (09/21/2024, 8:17am). Procalcitonin #2 3.58 ng/mL (09/22/2024, 5:27am). Procalcitonin #3 2.08 ng/mL (09/23/2024, 5:25am). Procalcitonin #4 (09/24/2024, 4:44am). WBC 2.31, no differential, Hb 13.2, MCV 87.4, MCHC 33.9, platelet 134 (09/20/2024, 8:10am). WBC 1.49, no differential, Hb 12.8, MCV 87.1, MCHC 34.5, platelet 118 (09/21/2024, 5:18am). WBC 2.81, N61 L21 M11 E1, Hb 13.3, MCV 98.1, MCHC 34.6, platelet 104 (09/22/2024, 5:27am). WBC 5.47, N73 L15 M 9 E1, Hb 13.4, MCV 86.6, MCHC 33.9, platelet 108 (09/23/2024, 5:25am). Na 137, K 4.2, BUN 23, creatinine 0.90, glucose 133 (09/17/2024, 8:21pm). Na 133, K 5.1, BUN 19, creatinine 1.07, glucose 124 (09/18/2024, 9:02am). Na 131, K 3.3, BUN 19, creatinine 0.83, glucose 123 (09/19/2024, 6:32am). Na 129, K 3.0, BUN 17, creatinine 0.72, glucose 113 (09/20/2024, 8:10am). Na 129, K 3.2, BUN 18, creatinine 0.77, glucose 103 (09/20/2024, 7:49pm). Na 130, K 3.4, BUN 17, creatinine 0.84, glucose 100 (09/21/2024, 5:18am). Na 128, K 3.5, BUN 19, creatinine 0.75, glucose 107 (09/22/2024, 5:27am). Na 129, K 3.7, BUN 19, creatinine 0.68, glucose 113 (09/23/2024, 5:25am). Urine sodium (09/22/2024, 8:28pm): 83 mmol/L (positive screen for SIADH as a potential etiology for acute hyponatremia in this patient with recently diagnosed poorly differentiated left upper lung adenocarcinoma (as per 07/13/2024 left lung biopsy, [facility] Pathologist Dr. Pepito Hebert)). Diagnostic Findings CT abd/pelvis with IV contrast (09/17/2024, 8:27pm): 1. Uncomplicated sigmoid diverticulitis 2. Small bilateral pleural effusions right greater than left 3. Right common iliac artery aneurysm measuring 2.6 cm 4. Markedly distended urinary bladder AXR, 2 views (09/19/2024, 11:16am): 1. Findings of diverticulitis seen on the recent CT scan are not visualized by plain film. 2. Mildly dilated upper abdominal small bowel loop, possible ileus or reactive inflammation due to diverticulitis. No other bowel distention seen. No gross free air seen. CT abd/pelvis with IV contrast (09/20/2024, 8:44am): 1. Findings consistent with perforated sigmoid diverticulitis with progression since CT of September 17, 2024. Interval development of several fluid and gas containing pericolonic collections consistent with developing abscesses. Increase in ascites, mesenteric stranding and associated small bowel wall thickening which is likely reactive. 2. Proximal to mid small bowel dilatation which has developed since prior exam. This could represent a partial small bowel obstruction due to inflammation related to diverticulitis or an ileus. 3. Moderate amount of stool within the colon and rectum. Mild right colon dilatation. 4. No change in small bilateral pleural effusions. 5. Small hiatal hernia. Distal esophageal wall thickening which may represent esophagitis. KUB (09/20/2024, 4:17pm): 1. NGT placement in situ. KUB (09/22/2024, 7:00am): 1. NGT in stomach. 2. No obstruction. PG Care Time/CCT Total # of Minutes Spent Total Time Spent with Patient: Total time spent is greater than 50% in coordination of care (as documented) at patient's floor/unit and/or counseling patient: Coding Level of Care Code 91863 SUB INP/OBS CARE 2/35MIN Diagnoses Acute diverticulitis K57.92 Adenocarcinoma of lung C34.90 Urinary retention R33.9
[2024-09-24 08:04] LABS: Hemoglobin 13.4 g/dl (14.0-18.0); Mean Corpuscular Hgb Conc 34.4 g/dL (32.0-36.0); Mean Corpuscular Volume 87.4 fL (80.0-100.0); Mean Platelet Volume 10.8 fL (9.4-12.4); Platelet Count 136 K/uL (130-400); RDW Coefficient of Variation 12.5 % (11.5-14.5); RDW Standard Deviation 40.6 fL (36.4-46.3); Red Blood Count 4.46 M/uL (4.70-6.10); White Blood Count 7.91 K/ul (4.8-10.8)
[2024-09-24 08:08] LABS: Calcium 8.5 mg/dl (8.6-10.3); Creatinine Clr Calc Pharmacy 88.7 ml/min; Potassium 3.8 mmol/L (3.5-5.1)
--- NOTE | 2024-09-24 09:25 | Surgery Progress Note ---
Date of Service September 24, 2024 Assessment & Plan (1) Perforation of sigmoid colon due to diverticulitis: Plan: He is overall improved but still with some left lower quadrant abdominal pain He can be advanced to a low fiber diet and see how he does with possible d ischarge tomorrow Continue his IV antibiotics today Surgery will follow Admission and Anticipated Discharge Date Admission Date: September 17, 2024 Subjective Patient seen and examined. Still with left-sided abdominal pain. Afebrile. States he does feel better than yesterday. Review of Systems Constitutional: no fever and no chills Respiratory: no cough and no dyspnea Cardiovascular: no chest pain and no dyspnea on exertion Gastrointestinal: + abdominal pain; no nausea and no vomit ing Genitourinary: no dysuria or no difficulty urinating Musculoskeletal: no back pain and no neck pain Psychiatric: no behavioral changes and no depression Hematologic / Lymphatic: no easy bleeding and no easy bruising Physical Exam Constitutional: WD/WN, vitals as above Eyes: PERRL, conjunctivae normal, anicteric sclerae Respiratory: normal respiratory effort, lungs clear to auscultation Cardiovascular: RRR, no murmur, no edema Gastrointestinal (Abdomen): Inspection/Auscultation: abdomen normal to inspection; abdomen not distended Percussion/Palpation: + abdomen tender (Left lower quadrant) and abdomen soft; no guarding and no hernia Skin: no rashes, warm and dry Psychiatric: A+Ox3, euthymic affect Results & Data Vital Signs (Past 12 Hours) Vital Signs Temp Pulse Pulse Resp BP Pulse Ox O2 Del Method 09/24/24 07:21 36.3 C L 70 22 117/69 94 Room Air 09/24/24 02:51 36.9 C 83 17 107/71 96 Room Air 09/24/24 00:49 78 09/23/24 23:10 36.7 C 74 17 109/72 94 Room Air PG Care Time/CCT Total # of Minutes Spent Total Time Spent with Patient: Total time spent is greater than 50% in coordination of care (as documented) at patient's floor/unit and/or counseling patient: Coding Level of Care Code 36009 SUB INP/OBS CARE 04/30MIN Diagnoses Perforation of sigmoid colon due to diverticulitis K57.20
--- NOTE | 2024-09-24 14:20 | Hospitalist Progress Note ---
Date of Service September 24, 2024 Assessment & Plan (1) Acute diverticulitis: (2) Adenocarcinoma of lung: (3) Urinary retention: Plan 64 years old male with past medical history of FULL CODE @ home, underweight with BMI 17.4 (height 152.4 cm; weight 55.0 kg), diet-controlled DM2 with HbA1c 6.5% (09/19/2024, 6:32am), former tobacco abuse with no subsequent diagnosis of COPD, not on home O2 or home steroids, subsequent diagnosis of poorly differentiated left upper lung adenocarcinoma (as per 07/13/2024 left lung biopsy, [facility] Pathologist Dr. Pepito Hebert), started on chemotherapy recently, who presented to [facility] ER on 09/17/2024 with complaints of lower abdominal pain, and CT abdomen/pelvis with IV contrast (09/17/2024, 8:27pm) showing acute sigmoid diverticulitis without perforation. Patient also developed acute urinary retention and required Tong catheter on admission date 09/17/2024. 1. Sepsis secondary to sigmoid diverticulitis duration: Now resolved following antibiotics 2. Acute sigmoid diverticulitis with perforation and abscess: Now resolving nonsurgically. Continue IV antibiotics per general surgery Patient still have some mild abdominal pain Monitor overnight for possible discharge tomorrow 3. Acute urinary retention: Resolved, Tong has been discontinued Patient voiding spontaneously. 4. NSTEMI: Most likely due to demand ischemia from sepsis EKG without any ST changes patient patient does not have any chest pains 2D echo showed ejection fraction 60 percent, no regional wall abnormality 5. Type 2 diabetes: Well-controlled, last hemoglobin A1c was 6.5% Continue control with diet 6. Hypokalemia Now resolved 7. Hyponatremia Sodium 129 today Could be due to SIADH and continue fluid restriction Full code DVT prophylaxis Lovenox Disposition: Hopefully discharge tomorrow Admission and Anticipated Discharge Date Admission Date: September 17, 2024 Subjective Patient seen and examined, feels overall better, still complains of mild abdominal pain Review of Systems Review of Systems: All systems reviewed are negative, apart from the ones contained in the history. Physical Exam Physical Exam: The patient is awake, alert and oriented 3, well developed and well nourished, normocephalic and atraumatic, lying in bed and in no acute distress. HEENT--PERRL, EOMI, mucous membranes and oropharynx mildly dry Neck--supple. No JVD. No bruits. Thyroid normal, trachea midline, no adenopathy. Heart--normal S1 and S2. No murmurs, rubs or gallops. Lungs--clear bilaterally, no respiratory distress, no accessory muscle use. Abdomen--normal bowel sounds and soft. Extremities--no cyanosis or clubbing. No edema. Dermatologic--normal skin turgor, normal color, no abnormal lymph nodes, no rash. Neurologic--cranial nerves II through XII grossly intact. Rheumatologic--normal range of motion. Psychiatric--normal affect. Results & Data Results & Data Vital Signs (Past 12 Hours) Vital Signs Temp Pulse Pulse Resp BP Pulse Ox O2 Del Method 09/24/24 13:00 79 09/24/24 10:42 98.2 F 74 22 119/71 97 Room Air 09/24/24 07:21 97.3 F L 70 22 117/69 94 Room Air 09/24/24 05:45 82 09/24/24 02:51 98.4 F 83 17 107/71 96 Room Air PG Care Time/CCT Total # of Minutes Spent Total Time Spent with Patient: Total time spent is greater than 50% in coordination of care (as documented) at patient's floor/unit and/or counseling patient: Coding Level of Care Code 18813 SUB INP/OBS CARE 2/35MIN Diagnoses Acute diverticulitis K57.92 Adenocarcinoma of lung C34.90 Urinary retention R33.9 Time Spent (min) 35
[2024-09-24] MEDS: ACETAMINOPHEN 500 MG TAB PO PRN (20:16)
[2024-09-25 07:55] VITALS: BP 112/74; RESP 18; TEMP 97.9; O2SAT 95
--- NOTE | 2024-09-25 09:16 | Surgery Progress Note ---
Date of Service September 25, 2024 Assessment & Plan (1) Perforation of sigmoid colon due to diverticulitis: Plan: He is tolerating a low fiber diet He can be discharged today from a surgical standpoint Would give him 2 weeks of p.o. antibiotics upon discharge Surgery will sign off at this time, please call with any questions or concerns Admission and Anticipated Discharge Date Admission Date: September 17, 2024 Subjective Patient seen and examined. Abdominal pain improved. Tolerating low fiber diet. Had a bowel movement. Afebrile. Review of Systems Constitutional: no fever and no chills Respiratory: no cough and no dyspnea Cardiovascular: no chest pain and no dyspnea on exertion Gastrointestinal: + abdominal pain; no nausea and no vomit ing Genitourinary: no dysuria or no difficulty urinating Musculoskeletal: no back pain and no neck pain Psychiatric: no behavioral changes and no depression Hematologic / Lymphatic: no easy bleeding and no easy bruising Physical Exam Constitutional: WD/WN, vitals as above Eyes: PERRL, conjunctivae normal, anicteric sclerae Respiratory: normal respiratory effort, lungs clear to auscultation Cardiovascular: RRR, no murmur, no edema Gastrointestinal (Abdomen): Inspection/Auscultation: abdomen normal to inspection; abdomen not distended Percussion/Palpation: + abdomen tender (Mild left lower quadrant) and abdomen soft; no guarding and no hernia Skin: no rashes, warm and dry Psychiatric: A+Ox3, euthymic affect Results & Data Vital Signs (Past 12 Hours) Vital Signs Temp Pulse Pulse Resp BP Pulse Ox O2 Del Method 09/25/24 07:54 36.6 C 65 18 112/74 95 Room Air 09/25/24 03:23 36.5 C 82 17 115/75 94 Room Air 09/24/24 23:17 36.5 C 66 18 130/81 96 Room Air 09/24/24 23:16 67 PG Care Time/CCT Total # of Minutes Spent Total Time Spent with Patient: Total time spent is greater than 50% in coordination of care (as documented) at patient's floor/unit and/or counseling patient: Coding Level of Care Code 32911 SUB INP/OBS CARE 2/35MIN Diagnoses Perforation of sigmoid colon due to diverticulitis K57.20
[2024-09-25 09:18] LABS: Calcium 8.7 mg/dl (8.6-10.3); Creatinine Clr Calc Pharmacy 95.3 ml/min; Potassium 3.6 mmol/L (3.5-5.1)
--- NOTE | 2024-09-25 10:35 | Discharge Summary ---
Date of Service September 25, 2024 Admission HPI Per Admitting Provider Jorge Lamar is a 64 year old male with pete adenocarcinoma on chemotherapy who presents to the ER with abdominal pain. Symptoms started 3:30am yesterday morning with lower abdominal pain mostly on the left side. No radiation. Severity currently 5-6/10. 10/10 on arrival to the ER. Associated diaphoresis today. No nausea or vomiting. He has had no prior episodes of diverticulitis previously. Last colonoscopy 15 years ago. He is currently on chemotherapy for his lung adenocarcinoma although unclear what the medications are. He is under Dr Araiza at the cancer [facility]. Admission Exam (Per Admitting) Constitutional The patient is awake, alert and oriented 3, well developed and well nourished, normocephalic and atraumatic, lying in bed and in no acute distress. HEENT--PERRL, EOMI, mucous membranes and oropharynx mildly dry Neck--supple. No JVD. No bruits. Thyroid normal, trachea midline, no adenopathy. Heart--normal S1 and S2. No murmurs, rubs or gallops. Lungs--clear bilaterally, no respiratory distress, no accessory muscle use. Abdomen--normal bowel sounds and soft. Extremities--no cyanosis or clubbing. No edema. Dermatologic--normal skin turgor, normal color, no abnormal lymph nodes, no rash. Neurologic--cranial nerves II through XII grossly intact. Rheumatologic--normal range of motion. Psychiatric--normal affect. Discharge Data Consultations 09/17/24 22:06 ED Decision to Admit Stat 09/19/24 15:03 Consult General Surgery Routine 09/20/24 14:07 Consult Gastroenterology Routine Procedures Performed Operation Date: 09/20/24 16:55 Actual Procedures p Esophagogastroduodenoscopy(Not Applicable) - Nicho Aguirre MD Hospital Course (1) Acute diverticulitis: (2) Adenocarcinoma of lung: (3) Urinary retention: Plan 64 years old male with past medical history of FULL CODE @ home, underweight with BMI 17.4 (height 152.4 cm; weight 55.0 kg), diet-controlled DM2 with HbA1c 6.5% (09/19/2024, 6:32am), former tobacco abuse with no subsequent diagnosis of COPD, not on home O2 or home steroids, subsequent diagnosis of poorly differentiated left upper lung adenocarcinoma (as per 07/13/2024 left lung biopsy, [facility] Pathologist Dr. Pepito Hebert), started on chemotherapy recently, who presented to [facility] ER on 09/17/2024 with complaints of lower abdominal pain, and CT abdomen/pelvis with IV contrast (09/17/2024, 8:27pm) showing acute sigmoid diverticulitis without perforation. Patient also developed acute urinary retention and required Tong catheter on admission date 09/17/2024. 1. Sepsis secondary to sigmoid diverticulitis duration: Now resolved following antibiotics 2. Acute sigmoid diverticulitis with perforation and abscess: Now resolving nonsurgically. Continue IV antibiotics per general surgery Patient still have some mild abdominal pain Monitor overnight for possible discharge tomorrow 3. Acute urinary retention: Resolved, Tong has been discontinued Patient voiding spontaneously. 4. NSTEMI: Most likely due to demand ischemia from sepsis EKG without any ST changes patient patient does not have any chest pains 2D echo showed ejection fraction 60 percent, no regional wall abnormality 5. Type 2 diabetes: Well-controlled, last hemoglobin A1c was 6.5% Continue control with diet 6. Hypokalemia Now resolved 7. Hyponatremia Sodium 129 today Could be due to SIADH and continue fluid restriction Full code DVT prophylaxis Lovenox Disposition: Hopefully discharge today Coding Level of Care Code 61642 INP/OBS DISCH >30 MIN Diagnoses Acute diverticulitis K57.92 Adenocarcinoma of lung C34.90 Urinary retention R33.9 Time Spent (min) 35
[2024-09-25 10:52] VITALS: PULSE 65
== END 2024-09-25 12:10 | disposition home health service (06) | DRG 871 ==
LOC: ED 20:10 → SUATTDRO 22:25 → 3W 22:25 → 2E 09-20 17:04

== ENCOUNTER 2024-12-13 17:06 | Inpatient (IN) ==
[2024-12-13 17:41] LABS: Hematocrit (blood only) 40.4 % (42.0-52.0); Hemoglobin 13.0 g/dl (14.0-18.0); Immature Granulocytes # (auto) 0.13 K/uL (0.01-0.20); Immature Granulocytes % (auto) 0.6 %; Mean Corpuscular Hemoglobin 31.6 pg (25.0-34.0); Mean Corpuscular Volume 98.3 fL (80.0-100.0); Platelet Count 272 K/uL (130-400); RDW Standard Deviation 59.1 fL (36.4-46.3); Red Blood Count 4.11 M/uL (4.70-6.10); White Blood Count 20.43 K/ul (4.8-10.8)
[2024-12-13] MEDS: ACETAMINOPHEN 1,000 MG/100 ML VIAL IV STA (17:44)
[2024-12-13 18:03] LABS: Alanine Aminotransferase 14.0 U/L (7-52); Albumin Globulin Ratio 1.3 (0.9-2); Alkaline Phosphatase 72.0 U/L (34-104); Anion Gap 10.0 (3-11); Bilirubin,Total 0.3 mg/dl (0.2-1.0); Blood Urea Nitrogen 12.0 mg/dl (6-23); Calcium 10.3 mg/dl (8.6-10.3); Carbon Dioxide 25.0 mmol/L (21-32); Chloride 104.0 mmol/L (98-107); Creatinine Clr Calc Pharmacy 93.0 ml/min; Globulin 3.4 gm/dl (2.5-4.0); Glucose 126.0 mg/dl (70-99(Fasting)); Lipase 6.0 U/L (11-82); Potassium 4.2 mmol/L (3.5-5.1); Sodium 139.0 mmol/L (136-145); Total Protein 7.8 gm/dl (6.0-8.3)
[2024-12-13] MEDS: diphenhydrAMINE 50 MG/ML VIAL IV ONE (18:13)
--- NOTE | 2024-12-13 18:29 | Emergency Department Note ---
Impression & Plan Abdominal pain ED Provider Note NAME: KISHAN GRANT AGE: 64 SEX: M : 1960 ARRIVES VIA: Walk-In INFORMANT: Patient, ED PROVIDER(S): Gianluca Smith MD CHIEF COMPLAINT: Abdominal pain HPI: This is a 64-year-old White presented for abdominal pain. Patient notes that around 1 PM he began having pain in his left upper lower quadrant. He states this is pain worse with deep inspiration. He notes it is similar to his previous diverticulitis pain. Is no different. It is just as severe. He reports he has a surgery in his lung tomorrow for lobectomy. ROS: See above HPI for pertinent positives & negatives. A total of 10 systems reviewed and were otherwise negative. PAST MEDICAL HISTORY: See Below PAST SURGICAL HISTORY: See Below FAMILY HISTORY: See Below SOCIAL HISTORY: See Below HOME MEDICATIONS: See Below ALLERGIES: See Below VITALS: See Below PHYSICAL EXAMINATION: General: resting comfortably in no acute distress Head: Normocephalic and atraumatic Eyes: Normal inspection, extraocular muscles intact Ear, nose, throat: Normal external exam Neck: Normal range of motion Respiratory: lungs clear to auscultation bilaterally Cardiovascular: Regular rate/rhythm, no murmur GI: Involuntary guarding, diffusely tender most in the left abdomen Extremities: nontender, moves all extremities Neuro: The patient awake and alert, appropriately conversive, no focal deficits, symmetric faces Skin: Warm, dry, and intact MEDICAL DECISION MAKING: This is a 64-year-old male present for abdominal pain. Patient states this pain feels similar to diverticulitis pain he had a few months ago. Will do pain control, basic blood work and CT imaging to help assess. Will do chest x-ray for shortness of breath. Low concern for PE without hypoxia. -Blood work reveals a leukocytosis to 20. Hemoglobin 13. -Chest x-ray reveals mild pulmonary edema -CT imaging of the abdomen/pelvis reveals no acute intra-abdominal process or change. There may be some enteritis/esophagitis noted however. -Patient made worse findings. His pain is moderately improved but he still having severe pain intermittently. Patient does not feel safe with discharge home. Will admit for further intractable pain control. -Care discussed with Dr. Pickens for admission Differential diagnosis: Diverticulitis, SBO, PE, dissection, renal colic, perforated viscus Independent History obtained from: Daughter Diagnostics interpreted by me: ECG: ECG independently interpreted by me with normal sinus rhythm, rate of 80, normal SD, normal QRS, normal QTc, no ST segment elevations consistent with STEMI criteria Cardiac Monitoring: An order was placed for continuous cardiac monitoring. The monitor shows a rate of 84 with sinus rhythm. Past Med/Surg History Problem List (Updated 12/14/24 @ 00:01 by Gianluca Smith MD) Abdominal pain (Acute) Hypomagnesemia Mild dehydration Intractable abdominal pain Leukocytosis (Acute) Acute urinary retention (Acute) Diverticulitis (Acute) Diffuse abdominal pain (Acute) Urinary retention Acute diverticulitis Prediabetes HLD (hyperlipidemia) Adenocarcinoma of lung Chronic bronchitis COPD with emphysema Left upper lobe pulmonary nodule LungRADS 4B, 2.1 cm spiculated Medical History ASCVD (arteriosclerotic cardiovascular disease) mild-mod coronary artery calcifications seen on PET imaging 07/2024 Prediabetes Adenocarcinoma of lung 07/15/24 COPD with emphysema Hx of chronic bronchitis Blood pressure elevated without history of HTN Hx History of alcohol abuse Surgical History Port-A-Cath in place (08/24/24) History of bronchoscopy Hx of colonoscopy History of tympanoplasty of right ear Vasectomy status History of surgery on lower extremity Family History Mother Breast cancer Grandmother (Paternal) Myocardial infarction Father Diabetes Heart disease Other Colorectal cancer Denies family history of Ovarian cancer Prostate cancer Social History Smoking Status: Former smoker Tobacco Type: Cigarettes Age Started Using Tobacco: 12; Age Quit Using Tobacco: 64; packs per day: 1; Second Hand Exposure: Yes (hx); Do You Dip or Chew Tobacco: Yes; Hx Alcohol Use: No Hx Substance Use: Yes Non-Prescribed Medications: Marijuana Preferred Language: Swedish Communication Ability: Effective Visual Impairment: No Limitations Hearing Ability: Hard of Hearing Order Runner Required: No Beliefs That Will Affect Care: None marital status: Current Living Situation: Alone current occupational status: retired How many Children do You have: 6 Feels Safe at Home: Yes Diet: regular Diet Comment: regular caffeine: Yes during the past year weight has: remained stable Dental Care, Regularly: No Physical Activity Frequency: Daily Seatbelt Use: always Sunscreen Use: Yes Assistive Devices: Glasses Allergies Allergies Allergy/AdvReac Type Severity Reaction Status Date / Time strawberry Allergy Mild Rash Verified 12/13/24 18:56 Iodinated Contrast Media AdvReac Intermediate Nausea Verified 12/13/24 18:56 codeine AdvReac Unknown "Sour Verified 12/13/24 18:56 stomach" Home Meds Home Medications Medication Instructions Recorded Confirmed No Known Home Medications 12/13/24 12/13/24 Results & Data (ED) Vital Signs Vital Signs - 24 hr 12/13/24 17:11 12/13/24 17:31 12/13/24 18:00 Temperature 36.7 C Temperature Source Oral Pulse Rate 78 83 Respiratory Rate 35 H 14 Respiratory Depth Shallow Blood Pressure 109/88 126/93 Blood Pressure Mean 95 104 Pulse Oximetry 97 97 98 Oxygen Delivery Method Room Air Room Air Room Air Sepsis Recent Fever Within 48 Hours No Sepsis New/Unexplained Change in Mental Status N/A Sepsis Action Taken by Nursing No Action Required 12/13/24 18:26 12/13/24 19:00 12/13/24 19:03 Temperature Temperature Source Pulse Rate 80 83 86 Respiratory Rate 25 H 22 Respiratory Depth Blood Pressure 137/91 137/91 Blood Pressure Mean 106 106 Pulse Oximetry 96 96 Oxygen Delivery Method Room Air Room Air Sepsis Recent Fever Within 48 Hours Sepsis New/Unexplained Change in Mental Status Sepsis Action Taken by Nursing 12/13/24 19:36 12/13/24 20:06 12/13/24 20:36 Temperature Temperature Source Pulse Rate 90 99 H 89 Respiratory Rate 21 15 24 Respiratory Depth Blood Pressure 112/80 108/82 110/73 Blood Pressure Mean 90 90 85 Pulse Oximetry 94 93 94 Oxygen Delivery Method Room Air Room Air Room Air Sepsis Recent Fever Within 48 Hours Sepsis New/Unexplained Change in Mental Status Sepsis Action Taken by Nursing 12/13/24 20:57 12/13/24 21:30 12/13/24 21:52 Temperature Temperature Source Pulse Rate 88 89 96 H Respiratory Rate 16 15 Respiratory Depth Blood Pressure 113/82 Blood Pressure Mean 95 Pulse Oximetry 94 95 Oxygen Delivery Method Room Air Room Air Sepsis Recent Fever Within 48 Hours Sepsis New/Unexplained Change in Mental Status Sepsis Action Taken by Nursing 12/13/24 22:00 12/13/24 22:30 12/13/24 23:00 Temperature Temperature Source Pulse Rate 89 92 H 85 Respiratory Rate 17 18 18 Respiratory Depth Blood Pressure 125/93 121/88 109/83 Blood Pressure Mean 103 99 89 Pulse Oximetry 94 94 95 Oxygen Delivery Method Room Air Room Air Room Air Sepsis Recent Fever Within 48 Hours Sepsis New/Unexplained Change in Mental Status Sepsis Action Taken by Nursing 12/13/24 23:30 Temperature Temperature Source Pulse Rate 84 Respiratory Rate 18 Respiratory Depth Blood Pressure 106/80 Blood Pressure Mean 88 Pulse Oximetry 95 Oxygen Delivery Method Room Air Sepsis Recent Fever Within 48 Hours Sepsis New/Unexplained Change in Mental Status Sepsis Action Taken by Nursing Laboratory Data 12/13/24 17:28 12/13/24 17:28 Lab Results 12/13/24 12/13/24 Range/Units 17:28 17:45 WBC 20.43 H (4.8-10.8) K/ul RBC 4.11 L (4.70-6.10) M/uL Hgb 13.0 L (14.0-18.0) g/dl POC Hgb 14.3 (14.0-18.0) g/dl Hct 40.4 L (42.0-52.0) % POC Hct 42 (42-52) % MCV 98.3 (80.0-100.0) fL MCH 31.6 (25.0-34.0) pg MCHC 32.2 (32.0-36.0) g/dL RDW Std Deviation 59.1 H (36.4-46.3) fL RDW Coeff of Sindhu 16.2 H (11.5-14.5) % Plt Count 272 (130-400) K/uL MPV 9.4 (9.4-12.4) fL Immature Gran % (Auto) 0.6 % Neut % (Auto) 87.6 % Lymph % (Auto) 5.5 % [place] % (Auto) 5.8 % Eos % (Auto) 0.1 % Baso % (Auto) 0.4 % Neut # (Auto) 17.87 H (1.40-6.50) K/uL Lymph # (Auto) 1.13 L (1.20-3.40) K/uL [place] # (Auto) 1.19 H (0.11-0.59) K/uL Eos # (Auto) 0.03 (0.00-0.50) K/uL Baso # (Auto) 0.08 (0.00-0.20) K/uL Immature Gran # (Auto) 0.13 (0.01-0.20) K/uL POC Sodium 139 (135-144) mmol/L Sodium 139 (136-145) mmol/L POC Potassium 4.1 (3.3-5.0) mmol/L Potassium 4.2 (3.5-5.1) mmol/L POC Chloride 104 (101-112) mmol/L Chloride 104 (98-107) mmol/L Carbon Dioxide 25 (21-32) mmol/L POC Total CO2 22 L (24-31) mmol/L Anion Gap 10 (3-11) POC Anion Gap 18.0 (16-25) mmol/L POC BUN 12 (7-18) mg/dl BUN 12 (6-23) mg/dl Creatinine 0.76 (0.6-1.4) mg/dl POC Creatinine 0.8 (0.6-1.3) mg/dl Est Cr Clr Drug Dosing 93.0 ml/min eGFR 99.13 BUN/Creatinine Ratio 15.8 (10-20) Glucose 126 H (70-99(Fasting)) mg/dl POC Glucose (other) 128 H (70-99) mg/dl Calcium 10.3 (8.6-10.3) mg/dl POC Ioniz Calcium Yfn 1.24 (1.12-1.32) mmol/l Magnesium 1.5 L (1.7-2.4) mg/dl Total Bilirubin 0.3 (0.2-1.0) mg/dl AST 18 (13-39) U/L ALT 14 (7-52) U/L Alkaline Phosphatase 72 (34-104) U/L Troponin I High Sens 7.5 (0-20) pg/ml Total Protein 7.8 (6.0-8.3) gm/dl Albumin 4.4 (3.4-5.0) gm/dl Globulin 3.4 (2.5-4.0) gm/dl Albumin/Globulin Ratio 1.3 (0.9-2) Lipase 6 L (11-82) U/L Administered Medications Lactated Ringer's (Lr) 1,000 mls @ 100 mls/hr IV .Q10H ANAIS Stop: 12/14/24 17:29 Last Admin: 12/13/24 22:16 Dose: 100 mls/hr Documented By: LAYLA Magnesium Sulfate/Dextrose (Magnesium Sulfate / D5w) 1 gm in 100 mls @ 50 mls/hr IV Q2H ANAIS Stop: 12/14/24 01:29 Last Admin: 12/13/24 22:24 Dose: 50 mls/hr Documented By: LAYLA Discontinued Medications Diphenhydramine HCl (Diphenhydramine 50 Mg/Ml Vial) 50 mg IV ONE ONE Stop: 12/13/24 17:58 Last Admin: 12/13/24 18:13 Dose: 50 mg Documented By: LAYLA Hydromorphone HCl (Hydromorphone Inj 0.5 Mg/0.5 Ml Syr) 0.5 mg IV NOW STA Stop: 12/13/24 19:03 Last Admin: 12/13/24 19:16 Dose: 0.5 mg Documented By: LAYLA Hydromorphone HCl (Hydromorphone Inj 0.5 Mg/0.5 Ml Syr) 0.5 mg IV NOW STA Stop: 12/13/24 21:19 Last Admin: 12/13/24 22:17 Dose: 0.5 mg Documented By: LAYLA Acetaminophen (Ofirmev) 1,000 mg in 100 mls @ 400 mls/hr IV NOW STA Stop: 12/13/24 17:42 Last Infusion: 12/13/24 18:00 Dose: Infused Documented By: Admin: 12/13/24 17:44 Dose: 400 mls/hr Documented By: LAYLA Pantoprazole Sodium (Protonix) 40 mg in 10 mls @ 5 mls/min IV NOW ONE Stop: 12/13/24 21:19 Last Admin: 12/13/24 22:17 Dose: 5 mls/min Documented By: LAYLA Ioversol (Optiray 320 100ml) 90 ml IV ONCE ONE Stop: 12/13/24 18:42 Last Admin: 12/13/24 18:41 Dose: 90 ml Documented By: SANDRA Methylprednisolone (Methylprednisolone 125 Mg/2 Ml Vial) 40 mg IV NOW ONE Stop: 12/13/24 17:58 Last Admin: 12/13/24 18:13 Dose: 40 mg Documented By: [facility] Ondansetron HCl (Ondansetron Inj 2 Mg/Ml 2 Ml Vial) 4 mg IV NOW STA Stop: 12/13/24 19:45 Last Admin: 12/13/24 19:48 Dose: 4 mg Documented By: [facility] Imaging Data Radiologist's Impression: Chest X-Ray 12/13/24 17:28 Clinical History: Shortness of breath Technique: A frontal view of the chest was obtained Findings: There are no confluent pulmonary infiltrates. The heart size is within normal limits. No pleural effusion or pneumothorax is seen. There is diffuse interstitial prominence, concerning for mild pulmonary edema No fracture is noted. There is a right chest wall port with its tip in the SVC Impression: Suspected mild pulmonary edema ACT 112: Positive. There are findings on this exam that require communication between the performing entity and the patient following Patient Test Result Information Act ([place] ACT 112) guidelines. Electronically signed by Terence Gasca 12-13-2024 6:56 PM Abdomen/Pelvis CT 12/13/24 17:57 EXAMINATION: CT of the abdomen and pelvis performed after the administration of IV contrast TECHNIQUE: Helical CT images from the lung bases through the symphysis pubis were obtained with contrast. Coronal and sagittal reformatted images were generated at a workstation for further assessment. Dose reduction techniques were achieved by using automatic exposure control and/or adjustment of mA and/or kV according to patient size and/or use of iterative reconstruction technique. COMPARISON: 09/20/2024 HISTORY: Abdominal pain FINDINGS: Lower chest: No consolidation. No pleural effusion or pneumothorax. Tiny nodules in the left lower lobe of the lung, are likely infectious/inflammatory. Liver: No suspicious liver lesions. Portal veins appear patent. Gallbladder: No gallstones. No evidence of acute cholecystitis. Spleen: Normal size. Pancreas: No suspicious pancreatic lesions. The pancreatic duct is not dilated. Adrenal glands: No adrenal nodules. Kidneys: No hydronephrosis or obstructing renal stones. Bladder / Pelvic organs: Unremarkable. Bowel: No bowel obstruction. Small esophageal hiatal hernia, with mild wall thickening of the lower esophagus that may be seen with esophagitis. The appendix is unremarkable. Left colonic diverticulosis without evidence for diverticulitis. There is several fluid-filled and nondilated loops of small bowel. Lymph nodes: No retroperitoneal, mesenteric, or pelvic lymphadenopathy. Peritoneum / Retroperitoneum: No free fluid or air within the abdomen. Vessels: Borderline aneurysmal abdominal aorta measuring 3.0 x 2.9 cm. Right common iliac artery aneurysm measuring 2.5 cm. Bones and soft tissues: No suspicious lesion in the bones. IMPRESSION: No acute intra-abdominal process or significant change. Several fluid-filled loops of nondilated small bowel may be seen with enteritis. Lower esophageal wall thickening, suggestive of esophagitis. Abdominal aortic and right common iliac artery aneurysm. Electronically signed by Eulogio Og 12-13-2024 7:38 PM Discharge Plan Visit Data Chief Complaint: GI Assessment Stated Complaint: SOB, ABD PAIN, DIVERTICULTIS ED Provider: Gianluca Smith Discharge Problem: Abdominal pain Patient Disposition: Admitted As Inpatient Condition: Fair Discharge Instructions Interventions: ED Discharge Assessment Last Done: 12/13/24 23:53 Forms Stand Alone Forms: [employer] Prescriptions Prescriptions: No Action No Known Home Medications Referrals Referrals: Cam Horowitz DO [Primary Care Provider] - Discharge Problem: Abdominal pain Qualifiers: Abdominal location: generalized Qualified Code(s): R10.84 - Generalized abdominal pain
[2024-12-13] MEDS: OPTIRAY 320 100ml IV ONE (18:41)
--- NOTE | 2024-12-13 18:56 | XRay Report ---
Clinical History: Shortness of breath Technique: A frontal view of the chest was obtained Findings: There are no confluent pulmonary infiltrates. The heart size is within normal limits. No pleural effusion or pneumothorax is seen. There is diffuse interstitial prominence, concerning for mild pulmonary edema No fracture is noted. There is a right chest wall port with its tip in the SVC Impression: Suspected mild pulmonary edema ACT 112: Positive. There are findings on this exam that require communication between the performing entity and the patient following Patient Test Result Information Act ([place] ACT 112) guidelines. Electronically signed by Terence Gasca 12-13-2024 6:56 PM
[2024-12-13] MEDS: HYDROmorphone INJ 0.5 MG/0.5 ML SYR IV STA ×2 (19:16→22:17)
--- NOTE | 2024-12-13 19:39 | CT Scan Report ---
EXAMINATION: CT of the abdomen and pelvis performed after the administration of IV contrast TECHNIQUE: Helical CT images from the lung bases through the symphysis pubis were obtained with contrast. Coronal and sagittal reformatted images were generated at a workstation for further assessment. Dose reduction techniques were achieved by using automatic exposure control and/or adjustment of mA and/or kV according to patient size and/or use of iterative reconstruction technique. COMPARISON: 09/20/2024 HISTORY: Abdominal pain FINDINGS: Lower chest: No consolidation. No pleural effusion or pneumothorax. Tiny nodules in the left lower lobe of the lung, are likely infectious/inflammatory. Liver: No suspicious liver lesions. Portal veins appear patent. Gallbladder: No gallstones. No evidence of acute cholecystitis. Spleen: Normal size. Pancreas: No suspicious pancreatic lesions. The pancreatic duct is not dilated. Adrenal glands: No adrenal nodules. Kidneys: No hydronephrosis or obstructing renal stones. Bladder / Pelvic organs: Unremarkable. Bowel: No bowel obstruction. Small esophageal hiatal hernia, with mild wall thickening of the lower esophagus that may be seen with esophagitis. The appendix is unremarkable. Left colonic diverticulosis without evidence for diverticulitis. There is several fluid-filled and nondilated loops of small bowel. Lymph nodes: No retroperitoneal, mesenteric, or pelvic lymphadenopathy. Peritoneum / Retroperitoneum: No free fluid or air within the abdomen. Vessels: Borderline aneurysmal abdominal aorta measuring 3.0 x 2.9 cm. Right common iliac artery aneurysm measuring 2.5 cm. Bones and soft tissues: No suspicious lesion in the bones. IMPRESSION: No acute intra-abdominal process or significant change. Several fluid-filled loops of nondilated small bowel may be seen with enteritis. Lower esophageal wall thickening, suggestive of esophagitis. Abdominal aortic and right common iliac artery aneurysm. Electronically signed by Eulogio Og 12-13-2024 7:38 PM
[2024-12-13] MEDS: ONDANSETRON INJ 2 MG/ML 2 ML VIAL IV STA (19:48)
[2024-12-13 21:17] LABS: Magnesium 1.5 mg/dl (1.7-2.4)
[2024-12-13] MEDS ORDERED: ONDANSETRON INJ 2 MG/ML 2 ML VIAL IV PRN (21:18)
--- NOTE | 2024-12-13 21:20 | History & Physical Report ---
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 Patient was admitted from 09/17 to 09/24 with acute diverticulitis with perforation and abscess treated with NG tube and IV antibiotics. Patient presented 12/13 due to left-sided abdominal pain and feeling feverish similar to his previous episode. Abdomen/pelvis CT revealed enteritis and esophagitis, diverticulosis is stable. He is being admitted for IV pain control. #intractable abdominal pain CT showed enteritis and esophagitis (seen on scan 09/20), no noted acute process such as diverticulitis or bowel obstruction. LFTs WNL, negative. With leukocytosis, WBC 20.43 with neutrophil predominance however possible component of hemoconcentration with acute dehydration. Low concern for chemotherapy side effect given last dose several weeks ago. PET scan 11/16 did not show any evidence of abdomen or pelvis pathology. SMA syndrome low on differential given location of pain. - MRI abdomen ordered to further evaluate - pain at site of previous abd injury and concern for ulceration or stricture -> spoke with MRI department, these findings cannot be seen on MRI, will cancel - GI consulted - note that it appears patient has not had colonoscopy after recent diverticulitis with perf Pain control with IV Tylenol as needed, Dilaudid 0.5mg q4h IV as needed for breakthrough pain Nausea control Zofran as needed IV Protonix daily, first dose on admission Clear liquid diet, advance as tolerated Trend CBC #Mild dehydrationwith poor p.o. intake within abdominal pain. Labs appear hemoconcentrated with elevated WBC, hgb, and hct. LR at 100 mL/hour x 2 L overnight. #Hypomagnesemiachronic, mag 1.5 on admission, other electrolytes and renal function stable. Patient denies any recent vomiting and diarrhea. 2g IV magnesium ordered Trend magnesium and renal panel #Allergy to IV contrastreceived IV contrast with CT scan in ED. No allergic symptoms at time of admission; received Benadryl 50 mg IV and Solu-Medrol 40 Mg IV in ED. Benadryl 25 mg IV every 6 hours as needed for allergic reaction symptoms #left upper lobe adenocarcinoma of lungfollows with Dr. Araiza [facility] and completed 4 rounds of chemotherapy; reportedly last dose of chemotherapy was 11/24. Was to have surgical resection and hernandez dissection 12/14 in [place]. #History of urinary retentionHx chronic bladder outlet obstruction. Required Tong catheter during recent admission in September. Not in retention at time of admission. Bladder scan as needed #Abdominal aortic aneurysmpatient noted history of [address] noted 3.0 x 2.9 cm as well as right common iliac aneurysm measuring 2.5 cm. 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 Patient was admitted from 09/17 to 09/24 with acute diverticulitis with perforation and abscess treated with NG tube and IV antibiotics. Patient presented 12/13 due to left-sided abdominal pain and feeling feverish similar to his previous episode. Abdomen/pelvis CT revealed enteritis and esophagitis, diverticulosis is stable. He is being admitted for IV pain control. Patient seen at bedside with his daughter present. At 1:00 this afternoon after eating a bowl of cereal he developed left lower quadrant and left upper quadrant significant abdominal pain that gets worse with inspiration. He also felt feverish and was sweaty. He denies any vomiting or diarrhea however did feel nauseous after pain medication in the ED. Denies any chest pain. Patient stated this pain feels exactly the same as his previous episode in September with diverticulitis. He was told to come back in if he developed any fever or significant abdominal pain. Patient is to have lung surgery tomorrow in [place]. guarding his leukocytosis, he does feel slightly dehydrated and denies any recent steroid use. His most recent steroids were around 11/24 with his last round of chemotherapy in which he takes steroids the day before. He received Tylenol 1G IV and Dilaudid 0.5 mg IV in the ED and is still having 8/10 pain at bedside. He denies any nicotine or current alcohol use, quit drinking alcohol approximately 25 years ago. He is not on any home medications. He wishes to be full code. Discussed aneurysm seen on CT scan, patient has been aware and stated he has had those for about 20 years. Patient had an EGD guided NG tube placement 09/20 which revealed a small hiatal hernia. Allergies Allergy/AdvReac Type Severity Reaction Status Date / Time strawberry Allergy Mild Rash Verified 12/13/24 18:56 Iodinated Contrast Media AdvReac Intermediate Nausea Verified 12/13/24 18:56 codeine AdvReac Unknown "Sour Verified 12/13/24 18:56 stomach" Home Medications Medication Instructions Recorded Confirmed Type No Known Home Medications 12/13/24 12/13/24 History Past Med/Surg History Problem List (Updated 12/14/24 @ 00:01 by Gianluca Smith MD) Abdominal pain (Acute) Hypomagnesemia Mild dehydration Intractable abdominal pain Leukocytosis (Acute) Acute urinary retention (Acute) Diverticulitis (Acute) Diffuse abdominal pain (Acute) Urinary retention Acute diverticulitis Prediabetes HLD (hyperlipidemia) Adenocarcinoma of lung Chronic bronchitis COPD with emphysema Left upper lobe pulmonary nodule LungRADS 4B, 2.1 cm spiculated Medical History ASCVD (arteriosclerotic cardiovascular disease) mild-mod coronary artery calcifications seen on PET imaging 07/2024 Prediabetes Adenocarcinoma of lung 07/15/24 COPD with emphysema Hx of chronic bronchitis Blood pressure elevated without history of HTN Hx History of alcohol abuse Surgical History Port-A-Cath in place (08/24/24) History of bronchoscopy Hx of colonoscopy History of tympanoplasty of right ear Vasectomy status History of surgery on lower extremity Family History Mother Breast cancer Grandmother (Paternal) Myocardial infarction Father Diabetes Heart disease Other Colorectal cancer Denies family history of Ovarian cancer Prostate cancer Social History Smoking Status: Never smoker Tobacco Type: Smokeless Tobacco (Dip or Chew) Age Started Using Tobacco: 12; Age Quit Using Tobacco: 64; packs per day: 1; Second Hand Exposure: No; Do You Dip or Chew Tobacco: Yes; Tobacco Cessation Education Requested by Patient: No Hx Alcohol Use: No Hx Substance Use: Yes Non-Prescribed Medications: Marijuana Last Used Substance: Days (ago) Last Used Substance Other:: last used marijuana 3 days ago Preferred Language: Serbian Communication Ability: Effective Visual Impairment: No Limitations Hearing Ability: Hard of Hearing Foreign Food Cook Specialty Required: No Beliefs That Will Affect Care: None marital status: Current Living Situation: Alone current occupational status: retired How many Children do You have: 6 Other Information That Helps Us Care for You: No Feels Safe at Home: Yes Safety Concerns: Feels Safe At This Time Diet: regular Diet Comment: regular caffeine: Yes during the past year weight has: remained stable Dental Care, Regularly: No Physical Activity Frequency: Daily Seatbelt Use: always Sunscreen Use: Yes Assistive Devices: Denture - Upper, Denture - Lower and Glasses Review of Systems Review of Systems: see HPI Physical Exam Physical Exam: The patient is awake, alert and oriented 3, well developed and well nourished, normocephalic and atraumatic, in no acute distress. Non-toxic appearing. HEENT- EOMI, mucous membranes dry. Hearing grossly intact. Heart-normal S1 and S2. No murmurs, rubs or gallops. Lungs-clear bilaterally, no respiratory distress, no accessory muscle use. Abdomen-normal bowel sounds and soft. No ascites noted. Tender LUQ and LLQ. Extremities- no clubbing, cyanosis, or edema. Rheumatologic-normal range of motion. Psychiatric-normal affect. Results & Data Results & Data Vital Signs (Past 12 Hours) Vital Signs Temp Pulse Resp BP Pulse Ox O2 Del Method 12/13/24 20:57 88 16 94 Room Air 12/13/24 20:36 89 24 110/73 94 Room Air 12/13/24 20:06 99 H 15 108/82 93 Room Air 12/13/24 19:36 90 21 112/80 94 Room Air 12/13/24 19:03 86 22 137/91 96 Room Air 12/13/24 19:00 83 25 H 137/91 96 Room Air 12/13/24 18:26 80 12/13/24 18:00 83 14 126/93 98 Room Air 12/13/24 17:31 97 Room Air 12/13/24 17:11 36.7 C 78 35 H 109/88 97 Room Air Laboratory Results Reviewed CBC, CMP, troponin, lipase Ordered magnesium Diagnostic Findings reviewed CXR and abdomen pelvis CT Medications Administered EDTylenol 1G IV, Dilaudid 0.5 mg IV, Zofran 4 Mg IV, Benadryl 50 Mg IV, Solu- Medrol 40 Mg IV ECG Additional Comments: ordered Code Status & VTE Plan Code Status full code VTE Prophylaxis Plan VTE Prophylaxis will be ordered: Yes Supervising Physician Co-Signing Physician Notes Attending addendum: I have physically seen this patient, have supervised the NELI's activities, and agree with the H&P unless as otherwise noted. Assessment and Plan: The patient is a 64-year-old male with past medical history including left upper lobe adenocarcinoma lung status post chemotherapy, did undergo surgical resection and hernandez dissection 12/14 at [facility] in [place]. He also has a history of prediabetes, diverticulitis, acute urinary retention, hyperlipidemia, COPD with emphysema, and chronic bronchitis. Most recent admission to [facility] from 09/17-09/25/2024 for treatment of acute diverticulitis with perforation and abscess with IV antibiotics and placement of NG tube. Patient presented to the emergency department this evening due to left-sided abdominal pain over the same area of his previous diverticulitis, and feeling feverish similar to previous episode. CT scan abdomen pelvis showed enteritis, and esophagitis, with stable diverticulosis. He has been admitted to the [facility] hospitalist service for further evaluation, and management of pain. Intractable abdominal pain- CT abdomen pelvis at this time shows enteritis and esophagitis, and no signs of previous diverticulitis Patient's symptom complex is very similar to his presentation with diverticulitis, and reports that his pain is over the same area he had before with diverticulitis. Concerned that he may be a potential stricture and/or inflammation or ulcer from previous diverticulitis. CT of abdomen pelvis was performed with IV contrast, however, patient needed to be premedicated due to iodinated contrast media causing nausea. Will consult gastroenterology, and asked their opinion regarding further evaluat ion with CT abdomen pelvis with oral contrast, or MRI of abdomen and pelvis Acetaminophen 1 g IV every 8 hours as needed for mild pain or fever Dilaudid 0.5 mg IV every 4 hours as needed for breakthrough pain Zofran 4 mg IV every 6 hours as needed Pantoprazole 40 mg IV daily, with first dose now Clear liquid diet, advance as tolerated Follow serial laboratories Dehydration- Clear liquid diet and advancing as noted above Placed on LR at 100 mL/h x 2 L Hypomagnesemia- Magnesium 1.5 on admission Give magnesium sulfate 2 g IV, and recheck laboratories in the a.m. Left upper lobe adenocarcinoma of lung- Following with Dr. Araiza, and has completed 4 rounds of chemotherapy, with most recent dosing 11/24 Has an appointment at [facility] in [place] for surgical resection noted resection on 12/14, which will likely need to be rescheduled Contrast dye allergy- Premedicated in the ED this evening with Benadryl 50 mg IV and Solu-Medrol 40 mg IV Benadryl 25 mg IV every 6 hours as needed for any allergic reaction symptoms Chronic bladder outlet obstruction- Bladder scan with PVR as needed, no symptoms at this time Abdominal aortic aneurysm- 20-year history Noted on CT this evening with a stable 3.0 x 2.9 cm abdominal aortic aneurysm, along with right common iliac artery aneurysm of 2.5 cm PG Care Time/CCT Total # of Minutes Spent Total Time Spent with Patient: Total time spent is greater than 50% in coordination of care (as documented) at patient's floor/unit and/or counseling patient: Coding Level of Care Code 62360 INT INP/OBS CARE 3/75MIN Diagnoses Intractable abdominal pain R10.9 Leukocytosis D72.829 Leukocytosis type: unspecified Mild dehydration E86.0 Hypomagnesemia E83.42 (2) Leukocytosis Leukocytosis type: unspecified Qualified Code(s): D72.829 - Elevated white blood cell count, unspecified
[2024-12-13] MEDS: LACTATED RINGER'S 1,000 ML IV SCH (22:16)
[2024-12-13] MEDS: PANTOprazole 40 MG/10 ML SYR IV ONE (22:17)
[2024-12-13] MEDS: MAGNESIUM SULFATE / D5W 1 GM/100 ML BAG IV SCH (22:24)
[2024-12-14] MEDS ORDERED: HYDROmorphone INJ 0.5 MG/0.5 ML SYR IV PRN (00:32)
[2024-12-14] MEDS ORDERED: POLYETHYLENE (MIRALAX) 17 GM PACK PO PRN (00:32)
[2024-12-14] MEDS ORDERED: diphenhydrAMINE 50 MG/ML VIAL IV PRN (00:32)
[2024-12-14] MEDS ORDERED: ONDANSETRON INJ 2 MG/ML 2 ML VIAL IV PRN (00:32)
[2024-12-14] MEDS ORDERED: MELATONIN 3 MG TAB PO PRN (00:32)
[2024-12-14 02:04] LABS: Appearance Urine Clear (Clear); Glucose Urine UA Negative (Negative)
[2024-12-14] MEDS: ACETAMINOPHEN 1,000 MG/100 ML VIAL IV PRN (02:22)
[2024-12-14] MEDS: HYDROmorphone INJ 1 MG/ML SYRINGE IV PRN (05:19)
[2024-12-14 08:16] LABS: Hematocrit (blood only) 33.4 % (42.0-52.0); Hemoglobin 11.3 g/dl (14.0-18.0); Immature Granulocytes # (auto) 0.09 K/uL (0.01-0.20); Immature Granulocytes % (auto) 0.5 %; Mean Corpuscular Hemoglobin 33.3 pg (25.0-34.0); Mean Corpuscular Volume 98.5 fL (80.0-100.0); Platelet Count 247 K/uL (130-400); RDW Standard Deviation 58.6 fL (36.4-46.3); Red Blood Count 3.39 M/uL (4.70-6.10); White Blood Count 17.37 K/ul (4.8-10.8)
[2024-12-14 08:51] LABS: Anion Gap 8.0 (3-11); Blood Urea Nitrogen 15.0 mg/dl (6-23); Calcium 9.4 mg/dl (8.6-10.3); Carbon Dioxide 25.0 mmol/L (21-32); Chloride 102.0 mmol/L (98-107); Creatinine Clr Calc Pharmacy 89.6 ml/min; Glucose 137.0 mg/dl (70-99(Fasting)); Magnesium 1.9 mg/dl (1.7-2.4); Potassium 4.8 mmol/L (3.5-5.1); Sodium 135.0 mmol/L (136-145)
--- NOTE | 2024-12-14 09:14 | Gastrointestinal Consultation ---
Date of Consultation December 14, 2024 Assessment & Plan (1) Abdominal pain: 64 year old male with history of left lung adenocarcinoma s/p chemotherapy to have resection today in Counts include 234 beds at the [facility], recent admission in September for acute diverticulitis with perforation and abscess treated with NG tube and IV antibiotics admitted through the ED yesterday w/ reports of left-sided abdominal pain - CTAP w/o acute intra-abdominal process, several fluid-filled loops of nondilated small bowel ( ?enteritis) and lower esophageal wall thickening, suggestive of esophagitis 1. Esophagitis on imaging - OP EGD - Pantoprazole 40 mg twice daily - Soft, slippery diet as tolerated 2. Abd pain - CTAP without acute findings - Symptomatic improving - If pain returns, recommend repeat CTAP w/ IV and oral - Enteritis again noted on CT - Please check stool studies if he develops diarrhea - Recommend OP colonoscopy - Consider trial of Bentyl 10 mg three times daily - Bowel regimen w/ Miralax 1 capful daily - Will discuss diet w/ attending I spent a total of 60 minutes on the date of service in review of patient's record, and previously obtained information in person and appropriate medical visit, discussion and education of plan, with patient and/or caregiver, placing orders for tests/referral/procedures as medically necessary and documentation of pertinent clinical information in patient's medical records for their visit today. Supervising Physician Co-Signing Physician Notes I personally saw and examined the patient. I have reviewed the chart and agree with the documentation provided by the INTEGRATED MARKETING INTERN including discussion about the assessment, treatment and plan. Briefly, 64 year old male with history of left lung adenocarcinoma s/p chemotherapy to have resection today in Counts include 234 beds at the [facility], recent admission in September for acute diverticulitis with perforation and abscess treated with NG tube and IV antibiotics admitted through the ED yesterday w/ reports of left-sided abdominal pain - CTAP w/o acute intra-abdominal process, several fluid-filled loops of nondilated small bowel ( ?enteritis) and lower esophageal wall thickening, suggestive of esophagitis. He is not having any diverticulitis pain but has left upper quadrant pain on exam. I will proceed with EGD tomorrow and keep him n.p.o. after midnight. In the meantime he will need an outpatient colonoscopy after his lung cancer issues are sorted and he has had a lobectomy. He understands this. PPI twice daily and trial of cholestyramine for his pain History of Present Illness Reason for Consultation: abd pain Requesting Physician: Melba Matos MD Attending Physician: Melba Matos MD History of Present Illness 64 year old male with history of left lung adenocarcinoma s/p chemotherapy to have resection today in [place], prediabetes, recent admission in September for acute diverticulitis with perforation and abscess treated with NG tube and IV antibiotics admitted through the ED yesterday w/ reports of left-sided abdominal pain - GI was asked to evaluate. Pt was seen and evaluated, chart reviewed. He suggests symptoms started rather acutely yesterday around 1300. At first, pain was LUQ, dull. Over the next hour, pain seemed to migrated to his left mid/lower abdomen and become more severe. Severity continued to worsen and he he felt feverish and was sweating at home. Since arrival to the hospital, pain has been improving. He suggests this feels more dull now. No associated symptoms. No nausea/vomiting, diarrhea or change in bowel habits. No black/bloody stools. WBC 20 --> 17 Tb 0.3 AST 18 ALT 14 ALKP 72 Lipase 6 Last EGD/Colonoscopy were years ago. I was unable find records through [facility] or [facility] EHR. CTAP 12/29: No acute intra-abdominal process or significant change. Several fluid-filled loops of nondilated small bowel may be seen with enteritis. Lower esophageal wall thickening, suggestive of esophagitis CTAP 09/28: Findings consistent with perforated sigmoid diverticulitis with pro gression since CT of September 17, 2024. Interval development of several fluid and gas containing pericolonic collections consistent with developing abscesses. Increase in ascites, mesenteric stranding and associated small bowel wall thickening which is likely reactive.Proximal to mid small bowel dilatation which has developed since prior exam. This could represent a partial small bowel obstruction due to inflammation related to diverticulitis or an ileus. Moderate amount of stool within the colon and rectum. Mild right colon dilatation. Small hiatal hernia. Distal esophageal wall thickening which may represent esophagitis. CTAP 09/28: Uncomplicated sigmoid diverticulitis Allergies Allergy/AdvReac Type Severity Reaction Status Date / Time strawberry Allergy Mild Rash Verified 12/13/24 18:56 Iodinated Contrast Media AdvReac Intermediate Nausea Verified 12/13/24 18:56 codeine AdvReac Unknown "Sour Verified 12/13/24 18:56 stomach" Home Medications Medication Instructions Recorded Confirmed Type No Known Home Medications 12/13/24 12/13/24 History Patient History Medical History ASCVD (arteriosclerotic cardiovascular disease) mild-mod coronary artery calcifications seen on PET imaging 07/2024 Prediabetes Adenocarcinoma of lung 07/15/24 COPD with emphysema Hx of chronic bronchitis Blood pressure elevated without history of HTN Hx History of alcohol abuse Surgical History Port-A-Cath in place (08/24/24) History of bronchoscopy Hx of colonoscopy History of tympanoplasty of right ear Vasectomy status History of surgery on lower extremity Family History Mother Breast cancer Grandmother (Paternal) Myocardial infarction Father Diabetes Heart disease Other Colorectal cancer Denies family history of Ovarian cancer Prostate cancer Social History Smoking Status: Never smoker Tobacco Type: Smokeless Tobacco (Dip or Chew) Age Started Using Tobacco: 12; Age Quit Using Tobacco: 64; packs per day: 1; Second Hand Exposure: No; Do You Dip or Chew Tobacco: Yes; Tobacco Cessation Education Requested by Patient: No Hx Alcohol Use: No Hx Substance Use: Yes Non-Prescribed Medications: Marijuana Last Used Substance: Days (ago) Last Used Substance Other:: last used marijuana 3 days ago Preferred Language: Syriac Communication Ability: Effective Visual Impairment: No Limitations Hearing Ability: Hard of Hearing Transcribing Operator Head Required: No Beliefs That Will Affect Care: None marital status: Current Living Situation: Alone current occupational status: retired How many Children do You have: 6 Other Information That Helps Us Care for You: No Feels Safe at Home: Yes Safety Concerns: Feels Safe At This Time Diet: regular Diet Comment: regular caffeine: Yes during the past year weight has: remained stable Dental Care, Regularly: No Physical Activity Frequency: Daily Seatbelt Use: always Sunscreen Use: Yes Assistive Devices: Denture - Upper, Denture - Lower and Glasses Review of Systems Review of Systems: All other findings negative except as noted in HPI. Physical Exam Constitutional: WD/WN, vitals as above Respiratory: normal respiratory effort Cardiovascular: Rate/Rhythm: regular rate Gastrointestinal (Abdomen): normal bowel sounds, soft, nontender, no hepatosplenomegaly Skin: no rashes, warm and dry Results & Data Vital Signs (Past 12 Hours) Vital Signs Temp Pulse Pulse Resp BP BP Pulse Ox 12/14/24 07:28 12/14/24 07:15 97.7 F 73 16 106/69 95 12/14/24 00:10 12/14/24 00:10 97.5 F L 83 16 129/76 97 12/13/24 23:30 84 18 106/80 95 12/13/24 23:00 85 18 109/83 95 12/13/24 22:30 92 H 18 121/88 94 12/13/24 22:00 89 17 125/93 94 12/13/24 21:52 96 H 12/13/24 21:30 89 15 113/82 95 O2 Del Method 12/14/24 07:28 Room Air 12/14/24 07:15 Room Air 12/14/24 00:10 Room Air 12/14/24 00:10 Room Air 12/13/24 23:30 Room Air 12/13/24 23:00 Room Air 12/13/24 22:30 Room Air 12/13/24 22:00 Room Air 12/13/24 21:52 12/13/24 21:30 Room Air Laboratory Results 12/14/24 12/14/24 12/13/24 Range/Units 07:36 01:58 17:45 WBC 17.37 H (4.8-10.8) K/ul RBC 3.39 L (4.70-6.10) M/uL Hgb 11.3 L (14.0-18.0) g/dl POC Hgb 14.3 (14.0-18.0) g/dl Hct 33.4 L (42.0-52.0) % POC Hct 42 (42-52) % MCV 98.5 (80.0-100.0) fL MCH 33.3 (25.0-34.0) pg MCHC 33.8 (32.0-36.0) g/dL RDW Std Deviation 58.6 H (36.4-46.3) fL RDW Coeff of Sindhu 16.0 H (11.5-14.5) % Plt Count 247 (130-400) K/uL MPV 9.7 (9.4-12.4) fL Immature Gran % (Auto) 0.5 % Neut % (Auto) 89.6 % Lymph % (Auto) 5.4 % Austin % (Auto) 4.4 % Eos % (Auto) 0.0 % Baso % (Auto) 0.1 % Neut # (Auto) 15.55 H (1.40-6.50) K/uL Lymph # (Auto) 0.94 L (1.20-3.40) K/uL Austin # (Auto) 0.77 H (0.11-0.59) K/uL Eos # (Auto) 0.00 (0.00-0.50) K/uL Baso # (Auto) 0.02 (0.00-0.20) K/uL Immature Gran # (Auto) 0.09 (0.01-0.20) K/uL POC Sodium 139 (135-144) mmol/L Sodium 135 L (136-145) mmol/L POC Potassium 4.1 (3.3-5.0) mmol/L Potassium 4.8 (3.5-5.1) mmol/L POC Chloride 104 (101-112) mmol/L Chloride 102 (98-107) mmol/L Carbon Dioxide 25 (21-32) mmol/L POC Total CO2 22 L (24-31) mmol/L Anion Gap 8 (3-11) POC Anion Gap 18.0 (16-25) mmol/L POC BUN 12 (7-18) mg/dl BUN 15 (6-23) mg/dl Creatinine 0.78 (0.6-1.4) mg/dl POC Creatinine 0.8 (0.6-1.3) mg/dl Est Cr Clr Drug Dosing 89.6 ml/min eGFR 98.35 BUN/Creatinine Ratio 19.2 (10-20) Glucose 137 H (70-99(Fasting)) mg/dl POC Glucose (other) 128 H (70-99) mg/dl Calcium 9.4 (8.6-10.3) mg/dl POC Ioniz Calcium Yfn 1.24 (1.12-1.32) mmol/l Phosphorus 4.1 (2.5-4.9) mg/dl Magnesium 1.9 (1.7-2.4) mg/dl Total Bilirubin (0.2-1.0) mg/dl AST (13-39) U/L ALT (7-52) U/L Alkaline Phosphatase (34-104) U/L Troponin I High Sens (0-20) pg/ml Total Protein (6.0-8.3) gm/dl Albumin 3.8 (3.4-5.0) gm/dl Globulin (2.5-4.0) gm/dl Albumin/Globulin Ratio (0.9-2) Lipase (11-82) U/L Urine Color Yellow Urine Appearance Clear (Clear) Urine pH 7.0 (4.5-7.5) Ur Specific Pindall > 1.045 H (1.000-1.030) Urine Protein Negative (Negative) Urine Glucose (UA) Negative (Negative) Urine Ketones Negative (Negative) Urine Blood Negative (Negative) Urine Nitrite Negative (Negative) Urine Bilirubin Negative (Negative) Urine Urobilinogen Negative (Negative) Ur Leukocyte Esterase Negative (Negative) Urine Comment 12/13/24 Range/Units 17:28 WBC 20.43 H (4.8-10.8) K/ul RBC 4.11 L (4.70-6.10) M/uL Hgb 13.0 L (14.0-18.0) g/dl POC Hgb (14.0-18.0) g/dl Hct 40.4 L (42.0-52.0) % POC Hct (42-52) % MCV 98.3 (80.0-100.0) fL MCH 31.6 (25.0-34.0) pg MCHC 32.2 (32.0-36.0) g/dL RDW Std Deviation 59.1 H (36.4-46.3) fL RDW Coeff of Sindhu 16.2 H (11.5-14.5) % Plt Count 272 (130-400) K/uL MPV 9.4 (9.4-12.4) fL Immature Gran % (Auto) 0.6 % Neut % (Auto) 87.6 % Lymph % (Auto) 5.5 % Austin % (Auto) 5.8 % Eos % (Auto) 0.1 % Baso % (Auto) 0.4 % Neut # (Auto) 17.87 H (1.40-6.50) K/uL Lymph # (Auto) 1.13 L (1.20-3.40) K/uL Austin # (Auto) 1.19 H (0.11-0.59) K/uL Eos # (Auto) 0.03 (0.00-0.50) K/uL Baso # (Auto) 0.08 (0.00-0.20) K/uL Immature Gran # (Auto) 0.13 (0.01-0.20) K/uL POC Sodium (135-144) mmol/L Sodium 139 (136-145) mmol/L POC Potassium (3.3-5.0) mmol/L Potassium 4.2 (3.5-5.1) mmol/L POC Chloride (101-112) mmol/L Chloride 104 (98-107) mmol/L Carbon Dioxide 25 (21-32) mmol/L POC Total CO2 (24-31) mmol/L Anion Gap 10 (3-11) POC Anion Gap (16-25) mmol/L POC BUN (7-18) mg/dl BUN 12 (6-23) mg/dl Creatinine 0.76 (0.6-1.4) mg/dl POC Creatinine (0.6-1.3) mg/dl Est Cr Clr Drug Dosing 93.0 ml/min eGFR 99.13 BUN/Creatinine Ratio 15.8 (10-20) Glucose 126 H (70-99(Fasting)) mg/dl POC Glucose (other) (70-99) mg/dl Calcium 10.3 (8.6-10.3) mg/dl POC Ioniz Calcium Yfn (1.12-1.32) mmol/l Phosphorus (2.5-4.9) mg/dl Magnesium 1.5 L (1.7-2.4) mg/dl Total Bilirubin 0.3 (0.2-1.0) mg/dl AST 18 (13-39) U/L ALT 14 (7-52) U/L Alkaline Phosphatase 72 (34-104) U/L Troponin I High Sens 7.5 (0-20) pg/ml Total Protein 7.8 (6.0-8.3) gm/dl Albumin 4.4 (3.4-5.0) gm/dl Globulin 3.4 (2.5-4.0) gm/dl Albumin/Globulin Ratio 1.3 (0.9-2) Lipase 6 L (11-82) U/L Urine Color Urine Appearance (Clear) Urine pH (4.5-7.5) Ur Specific Pindall (1.000-1.030) Urine Protein (Negative) Urine Glucose (UA) (Negative) Urine Ketones (Negative) Urine Blood (Negative) Urine Nitrite (Negative) Urine Bilirubin (Negative) Urine Urobilinogen (Negative) Ur Leukocyte Esterase (Negative) Urine Comment PG Care Time/CCT Total # of Minutes Spent Total Time Spent with Patient: Total time spent is greater than 50% in coordination of care (as documented) at patient's floor/unit and/or counseling patient: Coding Level of Care Code 83717 IN/OBS CONSULT LVL 4,60M Diagnoses Abdominal pain R10.84 Abdominal location: generalized (1) Abdominal pain Abdominal location: generalized Qualified Code(s): R10.84 - Generalized abdominal pain
[2024-12-14] MEDS: PANTOprazole 40 MG/10 ML SYR IV SCH (10:09)
[2024-12-14] MEDS: ENOXAPARIN INJ 40 MG/0.4 ML SYR SQ SCH (10:09)
--- NOTE | 2024-12-14 12:09 | Electrocardiogram Report ---
Test Reason : Blood Pressure : */* mmHG Vent. Rate : 80 BPM Atrial Rate : 80 BPM P-R Int : 146 ms QRS Dur : 82 ms QT Int : 364 ms P-R-T Axes : 29 25 37 degrees QTcB Int : 419 ms Normal sinus rhythm Normal ECG When compared with ECG of 17-Sep-2024 20:23, No significant change was found Confirmed by Tavo Barnett ([id number]) on 12/14/2024 12:09:40 PM Referred By: REFERRED SELF Confirmed By: Tavo Barnett
--- NOTE | 2024-12-14 12:23 | Hospitalist Progress Note ---
Date of Service December 14, 2024 Assessment & Plan (1) Intractable abdominal pain: (2) Leukocytosis: (3) Hypomagnesemia: Plan Patient is a 64-year-old male with past medical history of left upper lobe adenocarcinoma of the lung s/p chemotherapy to have surgical resection and hernandez dissection 12/14 in [place], prediabetes, diverticulitis, acute urinary retention. Patient was admitted from 09/17 to 09/24 with acute diverticulitis with perforation and abscess treated with NG tube and IV antibiotics. Patient presented 12/13 due to left-sided abdominal pain and feeling feverish similar to his previous episode. Abdomen/pelvis CT revealed enteritis and esophagitis, diverticulosis is stable. He is being admitted for IV pain control. #Abdominal pain/Suspect Acute diverticulitis CT showed enteritis and esophagitis (seen on scan 09/20), no noted acute process such as diverticulitis or bowel obstruction. LFTs WNL, negative. With leukocytosis, WBC 20.43 with neutrophil predominance. Given clinical exam, suspect acute diverticulitis. Perhaps CT performed too early in course. 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 intake within abdominal pain. Labs appear hemoconcentrated with elevated WBC, hgb, and hct. LR at 100 mL/hour x 2 L #Hypomagnesemiachronic, mag 1.5 on admission, other electrolytes and renal function stable. Patient denies any recent vomiting and diarrhea. Replaced and now resolved Trend magnesium and renal panel #Allergy to IV contrastreceived IV contrast with CT scan in ED. No allergic symptoms at time of admission; received Benadryl 50 mg IV and Solu-Medrol 40 Mg IV in ED. Benadryl 25 mg IV every 6 hours as needed for allergic reaction symptoms -veto thus far #left upper lobe adenocarcinoma of lungfollows with Dr. [facility] and completed 4 rounds of chemotherapy; reportedly last dose of chemotherapy was 11/24. Was to have surgical resection and hernandez dissection 12/14 in [place]. Will need to be rescheduled #History of urinary retentionHx chronic bladder outlet obstruction. Required Tong catheter during recent admission in September. Not in retention at time of admission. Bladder scan as needed #Abdominal aortic aneurysmpatient noted history of [address] noted 3.0 x 2.9 cm as well as right common iliac aneurysm measuring 2.5 cm. Continue to follow in outpatient setting VTE ppx: Lovenox Dispo: med surg, continued stay Admission and Anticipated Discharge Date Admission Date: December 13, 2024 Subjective Still having ongoing LLQ abd pain but not as bad as yesterday. No chest pain or SOB. No fevers or further sweats. Feels hungry. Last BM yesterday AM normal. No diarrhea.No urinary problems. Physical Exam Constitutional: WD/WN, vitals as above Neck: trachea midline, no thyromegaly Respiratory: normal respiratory effort, lungs clear to auscultation Cardiovascular: RRR, no murmur, no edema Chest (Breasts): Chest: normal inspection of chest Gastrointestinal (Abdomen): Inspection/Auscultation: abdomen normal to inspection and normal bowel sounds; abdomen not distended Percussion/Palpation: + abdomen tender (in LLQ and LUQ without guarding or r ebound) and abdomen soft Musculoskeletal: Extremities: extremities normal to inspection; no cyanosis and no clubbing Skin: no rashes, warm and dry Neurologic: moves all extremities and awake; no focal motor deficits Psychiatric: A+Ox3, euthymic affect Lymphatic: no lymphedema Results & Data Results & Data Vital Signs (Past 12 Hours) Vital Signs Temp Pulse Resp BP Pulse Ox O2 Del Method 12/14/24 07:28 Room Air 12/14/24 07:15 36.5 C 73 16 106/69 95 Room Air Laboratory Results CBC, BMP, Mag reviewed PG Care Time/CCT Total # of Minutes Spent Total Time Spent with Patient: Total time spent is greater than 50% in coordination of care (as documented) at patient's floor/unit and/or counseling patient: Coding Level of Care Code 59133 SUB INP/OBS CARE 2/35MIN Diagnoses Intractable abdominal pain R10.9 Leukocytosis D72.829 Leukocytosis type: unspecified Hypomagnesemia E83.42 (2) Leukocytosis Leukocytosis type: unspecified Qualified Code(s): D72.829 - Elevated white blood cell count, unspecified
[2024-12-14] MEDS: 4.5GM X1 IV STA (14:00)
--- NOTE | 2024-12-14 14:26 | Surgery Consultation ---
Date of Consultation December 14, 2024 Assessment & Plan (1) Diverticulitis: complicated recurrent diverticulitis possible fistula and microperforation responded to IVF begin abx conservative therapy if requires operative intervention for perforation will need [place] possible fistula not immediate surgical concern History of Present Illness Attending Physician: Melba Matos MD History of Present Illness This is a 64YO male admitted with abdominal pain and CT scan read as enteritis; reread as recurrent diverticulitis with possible colon/SB fistula and punctate free air. He was admitted last night with WBC of 20 and started on IVF, no abx. He feels better today. He was scheduled for lobectomy in [place] today. Allergies Allergy/AdvReac Type Severity Reaction Status Date / Time strawberry Allergy Mild Rash Verified 12/13/24 18:56 Iodinated Contrast Media AdvReac Intermediate Nausea Verified 12/13/24 18:56 codeine AdvReac Unknown "Sour Verified 12/13/24 18:56 stomach" Home Medications Medication Instructions Recorded Confirmed Type No Known Home Medications 12/13/24 12/13/24 History Patient History Medical History ASCVD (arteriosclerotic cardiovascular disease) mild-mod coronary artery calcifications seen on PET imaging 07/2024 Prediabetes Adenocarcinoma of lung 07/15/24 COPD with emphysema Hx of chronic bronchitis Blood pressure elevated without history of HTN Hx History of alcohol abuse Surgical History Port-A-Cath in place (08/24/24) History of bronchoscopy Hx of colonoscopy History of tympanoplasty of right ear Vasectomy status History of surgery on lower extremity Family History Mother Breast cancer Grandmother (Paternal) Myocardial infarction Father Diabetes Heart disease Other Colorectal cancer Denies family history of Ovarian cancer Prostate cancer Social History Smoking Status: Never smoker Tobacco Type: Smokeless Tobacco (Dip or Chew) Age Started Using Tobacco: 12; Age Quit Using Tobacco: 64; packs per day: 1; Second Hand Exposure: No; Do You Dip or Chew Tobacco: Yes; Tobacco Cessation Education Requested by Patient: No Hx Alcohol Use: No Hx Substance Use: Yes Non-Prescribed Medications: Marijuana Last Used Substance: Days (ago) Last Used Substance Other:: last used marijuana 3 days ago Preferred Language: Sinhala Communication Ability: Effective Visual Impairment: No Limitations Hearing Ability: Hard of Hearing Control Valve Mechanic Required: No Beliefs That Will Affect Care: None marital status: Current Living Situation: Alone current occupational status: retired How many Children do You have: 6 Other Information That Helps Us Care for You: No Feels Safe at Home: Yes Safety Concerns: Feels Safe At This Time Diet: regular Diet Comment: regular caffeine: Yes during the past year weight has: remained stable Dental Care, Regularly: No Physical Activity Frequency: Daily Seatbelt Use: always Sunscreen Use: Yes Assistive Devices: Denture - Upper, Denture - Lower and Glasses Review of Systems Constitutional: no fever and no chills Eyes: no problem reported Ear, Nose, Mouth, Throat: no problem reported Respiratory: no cough and no dyspnea Cardiovascular: no chest pain Gastrointestinal: + abdominal pain; no nausea, no vomiting and no change in bowel habits Genitourinary: no dysuria Integumentary: no problem reported Neurologic: no localized weakness and no generalized weakness Psychiatric: no behavioral changes Physical Exam Constitutional: WD/WN, vitals as above ENMT: external ear and nose normal, oropharynx normal Respiratory: normal respiratory effort Cardiovascular: Rate/Rhythm: regular rate and regular rhythm Gastrointestinal (Abdomen): Inspection/Auscultation: abdomen normal to inspection and normal bowel sounds; abdomen not distended Percussion/Palpation: + abdomen tender and abdomen soft; no guarding and abdomen not rigid Musculoskeletal: Head/Neck/Chest: normocephalic and head atraumatic Skin: no rashes, warm and dry Results & Data Vital Signs (Past 12 Hours) Vital Signs Temp Pulse Resp BP Pulse Ox O2 Del Method 12/14/24 07:28 Room Air 12/14/24 07:15 36.5 C 73 16 106/69 95 Room Air
[2024-12-14] MEDS: PIPERACILLIN/TAZOBACTAM 4.5 GM/100 ML BAG IV SCH (18:39)
[2024-12-15] MEDS ORDERED: HYDROmorphone INJ 0.5 MG/0.5 ML SYR IV PRN (05:31)
[2024-12-15] MEDS: HYDROmorphone INJ 1 MG/ML SYRINGE IV PRN ×2 (05:37→17:42)
[2024-12-15] MEDS ORDERED: TPN/PPN CONSULT PHARMACY PRN (07:52)
[2024-12-15 08:08] LABS: Hematocrit (blood only) 35.1 % (42.0-52.0); Hemoglobin 11.2 g/dl (14.0-18.0); Immature Granulocytes # (auto) 0.08 K/uL (0.01-0.20); Immature Granulocytes % (auto) 0.5 %; Mean Corpuscular Hemoglobin 31.9 pg (25.0-34.0); Mean Corpuscular Volume 100.0 fL (80.0-100.0); Platelet Count 208 K/uL (130-400); RDW Standard Deviation 59.0 fL (36.4-46.3); Red Blood Count 3.51 M/uL (4.70-6.10); White Blood Count 15.43 K/ul (4.8-10.8)
[2024-12-15 08:26] LABS: Alanine Aminotransferase 9.0 U/L (7-52); Alkaline Phosphatase 49.0 U/L (34-104); Anion Gap 7.0 (3-11); Bilirubin,Total 0.8 mg/dl (0.2-1.0); Blood Urea Nitrogen 16.0 mg/dl (6-23); Calcium 8.9 mg/dl (8.6-10.3); Carbon Dioxide 28.0 mmol/L (21-32); Chloride 103.0 mmol/L (98-107); Creatinine Clr Calc Pharmacy 73.6 ml/min; Glucose 111.0 mg/dl (70-99(Fasting)); Magnesium 1.6 mg/dl (1.7-2.4); Potassium 4.1 mmol/L (3.5-5.1); Sodium 138.0 mmol/L (136-145)
[2024-12-15 08:39] LABS: Triglycerides 146.0 mg/dl (0-150)
[2024-12-15] MEDS ORDERED: Nursing to Pharmacy Communication SCH (08:45)
--- NOTE | 2024-12-15 09:32 | Gastroenterology Progress Note ---
Date of Service December 15, 2024 Assessment & Plan (1) Abdominal pain: Plan: 64 year old male with history of left lung adenocarcinoma s/p chemotherapy to have resection today in [facility], recent admission in September for acute diverticulitis with perforation and abscess treated with NG tube and IV antibiotics admitted through the ED yesterday w/ reports of left-sided abdominal pain - CTAP w/o acute intra-abdominal process, several fluid-filled loops of nondilated small bowel ( ?enteritis) and lower esophageal wall thickening, suggestive of esophagitis CT reread w/ mild acute diverticulitis of sigmoid colon with tracts extending superiorly from the sigmoid into the left lower quadrant mesentery w/ multiloculated mesenteric abscess and scattered pneumoperitoneum throughout the abdomen compatible with perforation. NPO w/ IV ABX. Agree w/ general surgery and colorectal surgery evaluation. He will eventually need OP EGD for esophagitis and colonoscopy given his history of diverticulitis. Will arrange OP GI clinic appt to discuss timing. Pantoprazole 40 mg twice daily. I spent a total of 40 minutes on the date of service in review of patient's record, and previously obtained information in person and appropriate medical visit, discussion and education of plan, with patient and/or caregiver, placing orders for tests/referral/procedures as medically necessary and documentation of pertinent clinical information in patient's medical records for their visit today. Admission and Anticipated Discharge Date Admission Date: December 14, 2024 Supervising Physician Co-Signing Physician Notes I personally saw and examined the patient. I have reviewed the chart and agree with the documentation provided by the MOTORBOAT MECHANIC including discussion about the assessment, treatment and plan. Briefly, 64 year old male with history of left lung adenocarcinoma s/p chemotherapy to have resection today in [facility], recent admission in September for acute diverticulitis with perforation and abscess treated with NG tube and IV antibiotics admitted through the ED yesterday w/ reports of left-sided abdominal pain -now with recurrent diverticulitis with acute perforation. His pain has increased as well as his distention. The plan is for Dr. Tillman colorectal surgery to operate tomorrow. H e needs to be on broad-spectrum antibiotics n.p.o. after midnight limit only to ice chips. GI will follow outpatient for an upper endoscopy. Subjective Pt was seen and evaluated. He was evaluated by general surgery and colorectal surgery as CT was reviewed w/ radiology given persistent pain and WBC elevation - mild acute diverticulitis of sigmoid colon with tracts extending superiorly from the sigmoid into the left lower quadrant mesentery w/ multiloculated mesenteric abscess and scattered pneumoperitoneum throughout the abdomen compatible with perforation. He was made NPO. GI intervention of EGD canceled given CT re-read. This AM he notes his pain is worse. He tells me he was just evaluated by colorectal surgery and there is plan for surgical intervention today. CTAP w/ addendum 2024: Upon further review of the case, there is mild acute diverticulitis of the proximal sigmoid colon with a few sinus/fistula tracts extending superiorly from the sigmoid into the left lower quadrant mesentery and also possibly into adjacent loops of ileum. There is a small multiloculated mesenteric abscess within the left lower quadrant with largest pocket measuring approximately 2.4 x 1.3 x 3.0 cm (not amenable to cutaneous drainage). There are inflamed tethered adjacent loops of ileum along with scattered pneumoperitoneum throughout the abdomen compatible with perforation. Surgical consultation is needed. Findings were discussed with Dr. Matos at 1:30 PM on 12/14/2024. CTAP 2024: No acute intra-abdominal process or significant change. Several fluid-filled loops of nondilated small bowel may be seen with enteritis. Lower esophageal wall thickening, suggestive of esophagitis. Abdominal aortic and right common iliac artery aneurysm. Review of Systems Review of Systems: All other findings negative except as noted in HPI. Physical Exam Gastrointestinal (Abdomen): + abd pain, worse L>R bowel sounds active Results & Data Results & Data Vital Signs (Past 12 Hours) Vital Signs Temp Pulse Resp BP Pulse Ox O2 Del Method 12/15/24 08:23 Room Air 12/15/24 07:18 99.0 F 87 18 125/82 92 Room Air 12/14/24 23:10 99.1 F 79 18 121/77 91 Room Air Laboratory Results 12/15/24 12/15/24 Range/Units 07:44 07:42 WBC 15.43 H (4.8-10.8) K/ul RBC 3.51 L (4.70-6.10) M/uL Hgb 11.2 L (14.0-18.0) g/dl Hct 35.1 L (42.0-52.0) % MCV 100.0 (80.0-100.0) fL MCH 31.9 (25.0-34.0) pg MCHC 31.9 L (32.0-36.0) g/dL RDW Std Deviation 59.0 H (36.4-46.3) fL RDW Coeff of Sindhu 16.0 H (11.5-14.5) % Plt Count 208 (130-400) K/uL MPV 10.0 (9.4-12.4) fL Immature Gran % (Auto) 0.5 % Neut % (Auto) 86.1 % Lymph % (Auto) 5.2 % Worth % (Auto) 7.6 % Eos % (Auto) 0.3 % Baso % (Auto) 0.3 % Neut # (Auto) 13.28 H (1.40-6.50) K/uL Lymph # (Auto) 0.81 L (1.20-3.40) K/uL Worth # (Auto) 1.18 H (0.11-0.59) K/uL Eos # (Auto) 0.04 (0.00-0.50) K/uL Baso # (Auto) 0.04 (0.00-0.20) K/uL Immature Gran # (Auto) 0.08 (0.01-0.20) K/uL Sodium 138 (136-145) mmol/L Potassium 4.1 (3.5-5.1) mmol/L Chloride 103 (98-107) mmol/L Carbon Dioxide 28 (21-32) mmol/L Anion Gap 7 (3-11) BUN 16 (6-23) mg/dl Creatinine 0.95 (0.6-1.4) mg/dl Est Cr Clr Drug Dosing 73.6 ml/min eGFR 88.28 BUN/Creatinine Ratio 16.8 (10-20) Glucose 111 H (70-99(Fasting)) mg/dl Calcium 8.9 (8.6-10.3) mg/dl Phosphorus 3.4 (2.5-4.9) mg/dl Magnesium 1.6 L (1.7-2.4) mg/dl Total Bilirubin 0.8 D (0.2-1.0) mg/dl AST 11 L (13-39) U/L ALT 9 (7-52) U/L Alkaline Phosphatase 49 (34-104) U/L Triglycerides 146 (0-150) mg/dl PG Care Time/CCT Total # of Minutes Spent Total Time Spent with Patient: Total time spent is greater than 50% in coordination of care (as documented) at patient's floor/unit and/or counseling patient: Coding Level of Care Code 81096 SUB INP/OBS CARE 2/35MIN Diagnoses Abdominal pain R10.84 Abdominal location: generalized (1) Abdominal pain Abdominal location: generalized Qualified Code(s): R10.84 - Generalized abdominal pain
--- NOTE | 2024-12-15 11:17 | Surgery Consultation ---
Date of Consultation December 15, 2024 Assessment & Plan (1) Perforation of sigmoid colon due to diverticulitis: Patient with complicated 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 This is progressed from his prior complicated diverticulitis and has impeded his ability to proceed with oncologic resection of his lung cancer. In addition, this patient is in significant amount of pain and discomfort and has infectious complications from this diverticulitis along with being immunosuppressed. Had a lengthy discussion with the patient and started regarding surgical treatment for this given that it appears that he has failed nonoperative management. Plan will be for laparoscopic, possible open resection of the sigmoid colon with anastomosis, possible small bowel resection with anastomosis, possible ostomy if indicated, especially with the patient's immunocompromised condition and the active inflammation/infection. This will be further assessed in the operating room. Risks of procedure were discussed with the patient and they include bleeding, infection, injury to surrounding structures, anastomotic leak, need for further procedures, and cardiopulmonary events that can occur. Alternatives include no procedure, which the patient declines. Patient wishes to proceed with surgery. All questions were answered. Plan will also be for urology to perform cystoscopy and placed bilateral ureteral catheters to assist with identifying and protecting the ureters bilaterally. (2) Adenocarcinoma of lung: Lung cancer as mentioned above, last round of chemotherapy was November 24, patient's blood work does not show immunosuppression. Patient to eventually have oncologic resection of his primary tumor. (3) Inadequate oral nutritional intake: Plan will also be to start patient on PPN today given that it does not appear that he has really eaten well for some time. Will add on prealbumin to lab. History of Present Illness Reason for Consultation: Complicated diverticulitis Requesting Physician: Dr. Matos Attending Physician: Melba Matos MD History of Present Illness This is a very pleasant 64-year-old male who was admitted in September of this year had an attack of complicated sigmoid diverticulitis. Review of images from then does show that the small bowel adjacent to the area of sigmoid colon diverticulitis had edema in its mesentery. The diverticulitis was complicated with abscess and perforation and ileus and thickening of small bowel adjacent to the area of perforation, needing NG tube. It resolved nonoperatively, and patient has been avoiding any foods that appear to irritate his diverticular disease but unfortunately now it has recurred. He also has a history of lung cancer and has been on chemotherapy with his last round of chemotherapy being November 24. He was actually scheduled for resection of the left upper lobe of the lung in [place] this week but then developed this attack again. He reports this time the pain is worse than it was last time. Patient was admitted on the medicine service and started on IV antibiotics. I did independently review the images and it does appear to be perforated diverticular disease in the proximal sigmoid colon with adjacent small bowel fistulization versus thickening and possible obstruction due to proximal diverticular disease in the sigmoid colon. The patient reports he has not passed flatus or had a bowel movement since before admission. He denies any nausea or vomiting however. He is thirsty. He has had no abdominal surgeries in the past. His last colonoscopy was over 10 years ago, he thinks about 15 years ago. Prior to these 2 complicated attacks, he denies noticing any other sigmoid diverticular disease attacks. Patient does feel some chills and discomfort. Allergies Allergy/AdvReac Type Severity Reaction Status Date / Time strawberry Allergy Mild Rash Verified 12/13/24 18:56 Iodinated Contrast Media AdvReac Intermediate Nausea Verified 12/13/24 18:56 codeine AdvReac Unknown "Sour Verified 12/13/24 18:56 stomach" Home Medications Medication Instructions Recorded Confirmed Type No Known Home Medications 12/13/24 12/13/24 History Patient History Medical History Perforation of sigmoid colon due to diverticulitis ASCVD (arteriosclerotic cardiovascular disease) mild-mod coronary artery calcifications seen on PET imaging 07/2024 Prediabetes Adenocarcinoma of lung 07/15/24 COPD with emphysema Hx of chronic bronchitis Blood pressure elevated without history of HTN Hx History of alcohol abuse Surgical History Port-A-Cath in place (08/24/24) Insertion of Access Port with Fluoroscopy(Not Applicable) - Jorge Valle, DO, FACS History of bronchoscopy bronchoscopy, EBUS 07/13/24; GA: MAC#3, ETT#8.5, Gr View 1 Hx of colonoscopy 2014 History of tympanoplasty of right ear Vasectomy status History of surgery on lower extremity metal romelia in left leg Family History Mother Breast cancer Grandmother (Paternal) Myocardial infarction Father Diabetes Heart disease Other Colorectal cancer Denies family history of Ovarian cancer Prostate cancer Social History Smoking Status: Never smoker Tobacco Type: Smokeless Tobacco (Dip or Chew) Age Started Using Tobacco: 12; Age Quit Using Tobacco: 64; packs per day: 1; Second Hand Exposure: No; Do You Dip or Chew Tobacco: Yes; Tobacco Cessation Education Requested by Patient: No Hx Alcohol Use: No Hx Substance Use: Yes Non-Prescribed Medications: Marijuana Last Used Substance: Days (ago) Last Used Substance Other:: last used marijuana 3 days ago Preferred Language: Danish Communication Ability: Effective Visual Impairment: No Limitations Hearing Ability: Hard of Hearing Retail Interior Designer Required: No Beliefs That Will Affect Care: None marital status: Current Living Situation: Alone current occupational status: retired How many Children do You have: 6 Other Information That Helps Us Care for You: No Feels Safe at Home: Yes Safety Concerns: Feels Safe At This Time Diet: regular Diet Comment: regular caffeine: Yes during the past year weight has: remained stable Dental Care, Regularly: No Physical Activity Frequency: Daily Seatbelt Use: always Sunscreen Use: Yes Assistive Devices: None Review of Systems Review of Systems: 12 point review of systems is negative e xcept as mentioned above Physical Exam Constitutional: WD/WN, vitals as above Eyes: PERRL, conjunctivae normal, anicteric sclerae ENMT: external ear and nose normal, oropharynx normal Neck: trachea midline, no thyromegaly Respiratory: Normal respiratory effort Cardiovascular: RRR, no murmur, no edema Gastrointestinal (Abdomen): Abdomen is firm with tenderness in the left upper and left lower quadrant with some guarding, slight distention Musculoskeletal: no cyanosis or clubbing, extremities motor strength 5/5 Results & Data Vital Signs (Past 12 Hours) Vital Signs Temp Pulse Resp BP Pulse Ox O2 Del Method 12/15/24 08:23 Room Air 12/15/24 07:18 37.2 C 87 18 125/82 92 Room Air 12/14/24 23:10 37.3 C 79 18 121/77 91 Room Air Laboratory Results Labs were reviewed, notable for elevated white blood cell count but improved from prior Medications Administered Patient currently receiving Zosyn, Protonix, and Lovenox Sodium 138 mmol/L (136-145) 12/15/24 Potassium 4.1 mmol/L (3.5-5.1) 12/15/24 Chloride 103 mmol/L (98-107) 12/15/24 Carbon Dioxide 28 mmol/L (21-32) 12/15/24 Anion Gap 7 (3-11) 12/15/24 BUN 16 mg/dl (6-23) 12/15/24 Creatinine 0.95 mg/dl (0.6-1.4) 12/15/24 eGFR 88.28 12/15/24 Est GFR ( Amer) 104.5 ml/min 01/06/24 Est GFR (Non-Af Amer) 90.1 ml/min 01/06/24 BUN/Creatinine Ratio 16.8 (10-20) 12/15/24 Glucose 111 mg/dl (70-99(Fasting)) H 12/15/24 Hemoglobin A1c 6.5 % (4.5-5.6) H 09/19/24 Calcium 8.9 mg/dl (8.6-10.3) 12/15/24 Phosphorus 3.4 mg/dl (2.5-4.9) 12/15/24 Total Bilirubin 0.8 mg/dl (0.2-1.0) 12/15/24 AST 11 U/L (13-39) L 12/15/24 ALT 9 U/L (7-52) 12/15/24 Alkaline Phosphatase 49 U/L (34-104) 12/15/24 Total Protein 7.8 gm/dl (6.0-8.3) 12/13/24 Albumin 3.8 gm/dl (3.4-5.0) 12/14/24 Globulin 3.4 gm/dl (2.5-4.0) 12/13/24 Triglycerides 146 mg/dl (0-150) 12/15/24 Cholesterol 274 mg/dl (0-200) H 07/18/24 LDL Cholesterol, Calc 189 mg/dl 07/18/24 HDL Cholesterol 53 mg/dl 07/18/24 Cholesterol/HDL Ratio 5.2 (0-5) H 07/18/24 PG Care Time/CCT Total # of Minutes Spent Total Time Spent with Patient: Total time spent is greater than 50% in coordination of care (as documented) at patient's floor/unit and/or counseling patient: Coding Level of Care Code 07987 IN/OBS CONSULT LVL 5,80M History Detailed Exam Expanded Problem Focused Medical Decision Making Moderate Complexity Diagnoses Perforation of sigmoid colon due to diverticulitis K57.20 Adenocarcinoma of lung C34.90 Inadequate oral nutritional intake E63.9 Meds Home Medications and Allergies Home Medications Medication Instructions Recorded Confirmed Type No Known Home Medications 12/13/24 12/13/24 History Allergies Allergy/AdvReac Type Severity Reaction Status Date / Time strawberry Allergy Mild Rash Verified 12/13/24 18:56 Iodinated Contrast Media AdvReac Intermediate Nausea Verified 12/13/24 18:56 codeine AdvReac Unknown "Sour Verified 12/13/24 18:56 stomach"
[2024-12-15 11:54] LABS: Prealbumin 22.7 mg/dl (20-40)
--- NOTE | 2024-12-15 14:58 | Pharmacy Report ---
Pharmacy Initial PN Consult Nt - Date of Service December 15, 2024 - Scope Pharmacy has been consulted on 12/15 to manage parenteral nutrition orders and order appropriate labs. As part of the Nutrition Support Team Guidelines, pharmacy will work in conjunction with dietary when determining the patients c aloric needs. - Subjective * The patient is a 64 year old Male admitted on 12/14/24 for INTRACTABLE ABDOMINAL PAIN. * Patient is to receive parenteral nutrition for prolonged NPO status/perforated diverticulitis - Objective Vascular Access: * Patient currently has a central line Height & Weight (Last Documented) Height 5 ft 10 in Weight 68.3 kg Diet Order(s) 12/14/24 13:38 NPO 12/16/24 00:01 NPO Intake & Ouput (24hrs) 12/14/24 12/15/24 12/16/24 06:59 06:59 06:59 Intake Total 399.167 / 382.941 1257 / 3400 200 / 200 Output Total 250 / 250 1175 / 1175 225 / 225 Balance 149.167 / 949.607 4750 / 2225 - Selected Laboratory Results 12/15/24 07:44 Sodium 138 Potassium 4.1 Chloride 103 Carbon Dioxide 28 Anion Gap 7 BUN 16 Creatinine 0.95 BUN/Creatinine Ratio 16.8 Glucose 111 H Calcium 8.9 Phosphorus 3.4 Magnesium 1.6 L Total Bilirubin 0.8 D AST 11 L ALT 9 Alkaline Phosphatase [address] - Initial Nutrition Assessment Start: 12/15/24 09:04 Freq: Status: Active Protocol: Document 12/15/24 09:04 WN (Rec: 12/15/24 09:19 WN [id number]) - Assessment & Plan Assessment: * Appreciate dietitians recommendations for macronutrients. Will plan to start TPN conservatively as unclear how long NPO/poor PO status has been. Will start at about ~75% of Kcal goal. Patient with central access, provider okay'ed to use this site. Plan to stop IVF prior to TPN starting this evening. Plan: * For Day #1 of TPN administration, the following will be ordered: * Macronutrients: * Amino Acids: 58 grams/day * Dextrose: 101 grams/day * Lipids: 50 grams/day * Micronutrients: * TPN electrolytes: 20 mL/day - Contains 35 mEq Na, 20 mEq K, 4.5 mEq Ca, 5 mEq Mg, 35 mEq Cl, 29.5 mEq Acetate per 20 mL * Sodium phosphate: 15 mMol/day * Sodium chloride: 20 mEq/day * Magnesium sulfate: 4.06 mEq/day * Multivitamins: 10 mL/day * Trace elements: 1 mL/day * Thiamine: 100 mg/day * Total volume of 766 mL will be infused over 24 hours and will provide 1073 kcal/day * Labs will be ordered per PN protocol. * Pharmacy will follow and adjust PN orders on a daily basis. Thank you!
[2024-12-15] MEDS ORDERED: DEXTROSE 10% 1,000 ML IV PRN (16:00)
--- NOTE | 2024-12-15 16:03 | Hospitalist Progress Note ---
Date of Service December 15, 2024 Assessment & Plan (1) Perforation of sigmoid colon due to diverticulitis: (2) Acute respiratory failure with hypoxia: (3) Hypomagnesemia: Plan Patient is a 64-year-old male with past medical history of left upper lobe adenocarcinoma of the lung s/p chemotherapy to have surgical resection and hernandez dissection 12/14 in [place], prediabetes, diverticulitis, acute urinary retention who presented 12/13 due to left-sided abdominal pain found to have acute sigmoid diverticulitis with perforation and possible fistula to small bowel. #Perforated acute sigmoid diverticulitis with possible fistula to the ileum CT showed enteritis and esophagitis and later found to have acute perforated sigmoid diverticulitis. With leukocytosis, WBC 20.43 with neutrophil predominance on admission. Started on IV Zosyn, made NPO. Appreciate Colorectal Surgery and GI recommendations -plan for partial colectomy, possible small bowel resection, and possible ostomy on 12/16 -keep NPO -he will eventually need a colonoscopy as never had one after last diverticulitis increase Pain control to Dilaudid 1 mg q3h IV as needed for breakthrough pain, continue IV tylenol prn Nausea control Zofran as needed continue IV Protonix twice daily for possible esophagitis although has no heartburn symptoms- needs EGD as an outpatient -start PPN-checked LFTs, prealbumin, TG Trend CBC, BMP, Mag, phos #Acute respiratory failure with hypoxemia2/2 abd pain and poor inspiratory effort -improve pain control-increase dose and frrequency of IV dilaudid -encouraged ICS -continue supplemental O2 as needed to keep POx> 90% #Hypomagnesemiachronic, mag 1.5 on admission, other electrolytes and renal function stable. Patient denies any recent vomiting and diarrhea. Replaced and now low again -give 2 grams IV magnesium Trend magnesium and renal panel #left upper lobe adenocarcinoma of lungfollows with Dr. [facility] and completed 4 rounds of chemotherapy; reportedly last dose of chemotherapy was 11/24. Was to have surgical resection and hernandez dissection 12/14 in [place]. Will need to be rescheduled after recovers from bowel surgery #History of urinary retentionHx chronic bladder outlet obstruction. Required Tong catheter during recent admission in September. Not in retention at time of admission. Bladder scan as needed #Abdominal aortic aneurysmpatient noted history of [address] noted 3.0 x 2.9 cm as well as right common iliac aneurysm measuring 2.5 cm. Continue to follow in outpatient setting VTE ppx: Lovenox placed on hold for surgery Dispo: med surg, continued stay Admission and Anticipated Discharge Date Admission Date: December 14, 2024 Subjective Patient having a lot more abdominal pain today. Passed some flatus but no bowel movement. No nausea or vomiting. I discussed his care with colorectal surgery. He has been requiring 2L NC O2 for hypoxemia with pulse ox 84%. He reports it is too painful to use the incentive spirometry. Physical Exam Constitutional: WD/WN, vitals as above Neck: trachea midline, no thyromegaly Respiratory: + abnormal respiratory effort (Not takin g deep breaths) and no cough Auscultation: lungs clear to auscultation bilaterally Cardiovascular: RRR, no murmur, no edema Chest (Breasts): Chest: normal inspection of chest Gastrointestinal (Abdomen): Inspection/Auscultation: + abdomen distended (Moderately) and normal bowel sounds Percussion/Palpation: + abdomen tender (Diffusely), + guarding and + abdomen rigid Musculoskeletal: Extremities: extremities normal to inspection; no cyanosis and no clubbing Skin: no rashes, warm and dry Neurologic: moves all extremities and awake; no focal motor deficits Psychiatric: A+Ox3, euthymic affect Lymphatic: no lymphedema Results & Data Results & Data Vital Signs (Past 12 Hours) Vital Signs Temp Pulse Resp BP Pulse Ox O2 Del Method O2 Flow Rate 12/15/24 15:41 95 Nasal Cannula 2.5 12/15/24 15:21 37.5 C 96 H 16 116/72 84 L Room Air 12/15/24 08:23 Room Air 12/15/24 07:18 37.2 C 87 18 125/82 92 Room Air Laboratory Results CBC, CMP, magnesium, phosphorus, prealbumin, triglycerides reviewed PG Care Time/CCT Total # of Minutes Spent Total Time Spent with Patient: Total time spent is greater than 50% in coordination of care (as documented) at patient's floor/unit and/or counseling patient: Coding Level of Care Code 75228 SUB INP/OBS CARE 3/50MIN Diagnoses Perforation of sigmoid colon due to diverticulitis K57.20 Acute respiratory failure with hypoxia J96.01 Hypomagnesemia E83.42
[2024-12-15] MEDS: [UNRECOGNIZED DRUG - OTHER] IV SCH (16:23)
[2024-12-15] MEDS: CLINOLIPID 20% IV FAT EMULSION 250 ML IV SCH (16:23)
[2024-12-15] MEDS: CENTRAL TPN IV SCH (16:23)
[2024-12-15] MEDS: HYDROmorphone INJ 0.5 MG/0.5 ML SYR IV STA (16:30)
[2024-12-15] MEDS: PANTOprazole 40 MG/10 ML SYR IV SCH (21:55)
[2024-12-16] MEDS: STOP CLINOLIPID SCH (04:00)
[2024-12-16] MEDS: HEPARIN 100 UNIT/ML 5ML FLUSH FLUSH PRN (05:05)
[2024-12-16 05:35] LABS: Hematocrit (blood only) 34.4 % (42.0-52.0); Hemoglobin 11.0 g/dl (14.0-18.0); Immature Granulocytes # (auto) 0.10 K/uL (0.01-0.20); Immature Granulocytes % (auto) 0.7 %; Mean Corpuscular Hemoglobin 32.0 pg (25.0-34.0); Mean Corpuscular Volume 100.0 fL (80.0-100.0); Platelet Count 180 K/uL (130-400); RDW Standard Deviation 57.3 fL (36.4-46.3); Red Blood Count 3.44 M/uL (4.70-6.10); White Blood Count 14.88 K/ul (4.8-10.8)
[2024-12-16 05:49] LABS: Anion Gap 4.0 (3-11); Blood Urea Nitrogen 18.0 mg/dl (6-23); Calcium 8.7 mg/dl (8.6-10.3); Carbon Dioxide 29.0 mmol/L (21-32); Chloride 100.0 mmol/L (98-107); Creatinine Clr Calc Pharmacy 87.7 ml/min; Glucose 126.0 mg/dl (70-99(Fasting)); Magnesium 1.7 mg/dl (1.7-2.4); Potassium 3.9 mmol/L (3.5-5.1); Sodium 133.0 mmol/L (136-145)
--- NOTE | 2024-12-16 07:08 | History & Physical Report ---
Date of Service December 16, 2024 Assessment & Plan (1) Acute diverticulitis: Plan: Plan for colon resection today and placement of ureteral catheters for ureteral marking and identification purposes Risks, benefits, expectations for my portion of the case reviewed Consent on the chart Admission and Anticipated Discharge Date Admission Date: December 14, 2024 History of Present Illness Primary Care Provider: Cam Horowitz DO Patient with a perforated sigmoid diverticulitis who is now presenting for resection We have been approached to place perioperative ureteral catheters for safety Allergies Allergy/AdvReac Type Severity Reaction Status Date / Time strawberry Allergy Mild Rash Verified 12/13/24 18:56 Iodinated Contrast Media AdvReac Intermediate Nausea Verified 12/13/24 18:56 codeine AdvReac Unknown "Sour Verified 12/13/24 18:56 stomach" Home Medications Medication Instructions Recorded Confirmed Type No Known Home Medications 12/13/24 12/13/24 History Past Med/Surg History Problem List (Updated 12/15/24 @ 16:20 by Melba Matos MD) Acute respiratory failure with hypoxia Inadequate oral nutritional intake Abdominal pain (Acute) Hypomagnesemia Mild dehydration Intractable abdominal pain Leukocytosis (Acute) Acute urinary retention (Acute) Diverticulitis (Acute) Diffuse abdominal pain (Acute) Urinary retention Acute diverticulitis Prediabetes HLD (hyperlipidemia) Adenocarcinoma of lung Chronic bronchitis COPD with emphysema Left upper lobe pulmonary nodule LungRADS 4B, 2.1 cm spiculated Medical History Perforation of sigmoid colon due to diverticulitis ASCVD (arteriosclerotic cardiovascular disease) mild-mod coronary artery calcifications seen on PET imaging 07/2024 Prediabetes Adenocarcinoma of lung 07/15/24 COPD with emphysema Hx of chronic bronchitis Blood pressure elevated without history of HTN Hx History of alcohol abuse Surgical History Port-A-Cath in place (08/24/24) Insertion of Access Port with Fluoroscopy(Not Applicable) - Jorge Valle DO, FACS History of bronchoscopy bronchoscopy, EBUS 07/13/24; GA: MAC#3, ETT#8.5, Gr View 1 Hx of colonoscopy 2014 History of tympanoplasty of right ear Vasectomy status History of surgery on lower extremity metal romelia in left leg Family History Mother Breast cancer Grandmother (Paternal) Myocardial infarction Father Diabetes Heart disease Other Colorectal cancer Denies family history of Ovarian cancer Prostate cancer Social History Smoking Status: Never smoker Tobacco Type: Smokeless Tobacco (Dip or Chew) Age Started Using Tobacco: 12; Age Quit Using Tobacco: 64; packs per day: 1; Second Hand Exposure: No; Do You Dip or Chew Tobacco: Yes; Tobacco Cessation Education Requested by Patient: No Hx Alcohol Use: No Hx Substance Use: Yes Non-Prescribed Medications: Marijuana Last Used Substance: Days (ago) Last Used Substance Other:: last used marijuana 3 days ago Preferred Language: Ethiopian Communication Ability: Effective Visual Impairment: No Limitations Hearing Ability: Hard of Hearing Value Engineer Required: No Beliefs That Will Affect Care: None marital status: Current Living Situation: Alone current occupational status: retired How many Children do You have: 6 Other Information That Helps Us Care for You: No Feels Safe at Home: Yes Safety Concerns: Feels Safe At This Time Diet: regular Diet Comment: regular caffeine: Yes during the past year weight has: remained stable Dental Care, Regularly: No Physical Activity Frequency: Daily Seatbelt Use: always Sunscreen Use: Yes Assistive Devices: None Physical Exam Constitutional: well developed and well nourished Neck: neck nontender Respiratory: normal respiratory effort; no respiratory distress and does not use accessory muscles Cardiovascular: Rate/Rhythm: regular rate Vessels: radial pulses present Extremities: no edema Gastrointestinal (Abdomen): Inspection/Auscultation: abdomen normal to inspection Percussion/Palpation: abdomen soft; abdomen nontender and no guarding Musculoskeletal: Head/Neck/Chest: normocephalic and head atraumatic Extremities: extremities normal to inspection Skin: no rashes and no lesions Trauma: no evidence of skin trauma Neurologic: awake; not obtunded Speech / Cognition: normal speech Motor/Sensory: no tremor Psychiatric: Orientation: alert and oriented x 3 Genitourinary: no CVA tenderness Lymphatic: no lymphadenopathy Results & Data Vital Signs (Past 12 Hours) Vital Signs Temp Pulse Resp BP Pulse Ox O2 Del Method O2 Flow Rate 12/16/24 06:59 36.6 C 84 20 113/78 97 Nasal Cannula 2 12/15/24 23:15 37.6 C H 86 16 117/83 97 Nasal Cannula 2 12/15/24 20:11 Nasal Cannula 2 Code Status & VTE Plan VTE Prophylaxis Plan VTE Prophylaxis will be ordered: Yes
[2024-12-16] MEDS ORDERED: LIDOCAINE 2% 2 ML VIAL/AMP(20MG/ML) INFIL ONE ×2 (07:14→07:35)
[2024-12-16] MEDS ORDERED: PROPOFOL IV EMULSION 10 MG/ML 20 ML VIAL IV ONE (07:14)
[2024-12-16] MEDS ORDERED: MIDAZOLAM HCL 1 MG/ML 2ML VIAL ONE (07:15)
--- NOTE | 2024-12-16 07:21 | History & Physical Bridge Note ---
Date of Service December 16, 2024 History & Physical Bridge Note I have examined the patient, reviewed the History & Physical and in the interval since the performance of the History & Physical I have noted the following changes of clinical significance: no changes noted
--- NOTE | 2024-12-16 07:25 | Anesthesiology Consultation ---
Date of Service December 16, 2024 Assessment & Plan Chart Review Chart Review: Acceptable Risk for Surgery and Patient NOT seen in Pre Admission Testing Consults Requested none ASA ASA3 Proposed Anesthesia Anesthesia Type: General Risk / Benefits Reviewed With: PT / POA / Parent / Guardian, Accepts Plan and Informed Consent Obtained History Surgery Operation Date: 12/15/24 16:30 Proposed Procedures p Esophagogastroduodenoscopy Kel[place] - Betito Lama MD Operation Date: 12/16/24 07:30 Proposed Procedures p Laparoscopic Sigmoidectomy, Possible Bowel Resection, Possible Ostomy - Paradise Tillman MD s Cystoscopy Bilateral Stents - Eulogio Singh MD Height/Weight Height: 5 ft 10 in Weight: 68.3 kg Allergies Allergy/AdvReac Type Severity Reaction Status Date / Time strawberry Allergy Mild Rash Verified 12/13/24 18:56 Iodinated Contrast Media AdvReac Intermediate Nausea Verified 12/13/24 18:56 codeine AdvReac Unknown "Sour Verified 12/13/24 18:56 stomach" Medications Home Medications Medication Instructions Recorded Confirmed Last Taken No Known Home Medications 12/13/24 12/13/24 Unknown Active Medications Generic Name Dose Route Start Last Admin Trade Name Freq PRN Reason Stop Dose Admin Enoxaparin Sodium 40 mg 12/14/24 09:00 12/15/24 07:51 Enoxaparin Inj 40 Mg/0.4 Ml Syr SQ 01/13/25 08:59 40 mg Q24H ANAIS Administration Hydromorphone HCl 1 mg 12/15/24 16:17 12/16/24 05:05 Hydromorphone Inj 1 Mg/Ml Syringe IV 12/29/24 05:30 1 mg Q3H PRN Administration Severe Pain (Scale 7, 8, 9,10) Acetaminophen 1,000 mg in 100 mls @ 400 mls/hr 12/14/24 00:32 12/15/24 20:01 Ofirmev IV 12/17/24 00:31 Infused Q8H PRN Infusion Pain or Fever Piperacillin Sod/Tazobactam Sod 4.5 gm in 100 mls @ 25 mls/hr 12/14/24 18:30 12/16/24 06:06 Zosyn IV 12/24/24 18:29 Infused Q8H ANAIS Infusion Protocol Amino Acids/Dextrose 766 ml/ 766 mls @ 31.9 mls/hr 12/15/24 16:00 12/15/24 16:23 Nutrition (Parenteral) IV 12/16/24 15:59 31.9 mls/hr .Q24H ANAIS Administration Protocol Pantoprazole Sodium 40 mg in 10 mls @ 5 mls/min 12/15/24 21:00 12/16/24 07:21 Protonix IV 01/14/25 20:59 Not Given BID ANAIS Miscellaneous 1 each 12/16/24 04:00 12/16/24 04:00 Stop Clinolipid N/A 01/15/25 03:59 1 each DAILY@0400 ANAIS Administration NPO Date Last Intake of Fluids: 12/15/24 Time Last Intake of Fluids: 23:00 Date Last Intake of Solids: 12/13/24 Time Last Intake of Solids: 11:00 Past Medical History Medical History Perforation of sigmoid colon due to diverticulitis ASCVD (arteriosclerotic cardiovascular disease) mild-mod coronary artery calcifications seen on PET imaging 07/2024 Prediabetes Adenocarcinoma of lung 07/15/24 COPD with emphysema Hx of chronic bronchitis Blood pressure elevated without history of HTN Hx History of alcohol abuse Exercise / Class Metabolic Activity II 4-5 Yardwork/Stairs/Walk up hill Past Family History Family History Mother Breast cancer Grandmother (Paternal) Myocardial infarction Father Diabetes Heart disease Other Colorectal cancer Denies family history of Ovarian cancer Prostate cancer Past Surgical History Surgical History Port-A-Cath in place (08/24/24) Insertion of Access Port with Fluoroscopy(Not Applicable) - Jorge Valle, , FACS History of bronchoscopy bronchoscopy, EBUS 07/13/24; GA: MAC#3, ETT#8.5, Gr View 1 Hx of colonoscopy 2014 History of tympanoplasty of right ear Vasectomy status History of surgery on lower extremity metal romelia in left leg Past Anesthesia History No Hx of Anesthesia Complications and No Family Hx of Anesthesia Complications History of PONV No Hx of PONV and No Hx of Motion Sickness Social History Smoking Status: Never smoker Do You Dip or Chew Tobacco: Yes Hx Alcohol Use: No Hx Substance Use: Yes substance use type: marijuana Last Used Substance: Days (ago) Last Used Substance Other:: last used marijuana 3 days ago Physical Exam Vital Signs Last Vital Signs Temp 36.6 C 12/16/24 06:59 Pulse 84 12/16/24 06:59 Resp 20 12/16/24 06:59 BP 113/78 12/16/24 06:59 Pulse Ox 97 12/16/24 06:59 O2 Del Method Nasal Cannula 12/16/24 06:59 O2 Flow Rate 2 12/16/24 06:59 ENMT Mouth: + edentulous Thyromental Distance: > or= 3.5 Finger Breadths Mallampati Class: II Neck normal visual inspection Respiratory normal respiratory effort Auscultation: lungs clear to auscultation bilaterally Cardiovascular Rate/Rhythm: regular rate and regular rhythm Chest (Breasts) Chest: + vascular access device or port (r chest chemo port) Psychiatric Orientation: alert Testing Laboratory Results 12/16/24 05:16 12/16/24 05:16 Urine Color Yellow 12/14/24 01:58 Urine Appearance Clear (Clear) 12/14/24 01:58 Urine pH 7.0 (4.5-7.5) 12/14/24 01:58 Ur Specific Mckinnon > 1.045 (1.000-1.030) H 12/14/24 01:58 Urine Protein Negative (Negative) 12/14/24 01:58 Urine Glucose (UA) Negative (Negative) 12/14/24 01:58 Urine Ketones Negative (Negative) 12/14/24 01:58 Urine Nitrite Negative (Negative) 12/14/24 01:58 Ur Leukocyte Esterase Negative (Negative) 12/14/24 01:58 Blood Type A Positive 12/15/24 14:38 Antibody Screen NEGATIVE 12/15/24 14:38 12/16/24 12/16/24 12/15/24 07:02 05:54 23:57 POC Glucose 133 H 132 H 111 H
[2024-12-16] MEDS ORDERED: ROCURONIUM BROMIDE 10 MG/ML 5 ML VIAL IV ONE (07:35)
[2024-12-16] MEDS ORDERED: HYDROmorphone INJ 2 MG/ML SYR/VIAL ONE (08:51)
[2024-12-16] MEDS ORDERED: PHENYLEPHRINE 100MCG/ML 5ML SYR ONE (09:04)
--- NOTE | 2024-12-16 09:59 | Procedure Note ---
Procedure Note Date of Service December 16, 2024 Perioperative placement of bilateral ureteral catheters in preparation for partial colectomy Following sterile prep and drape with the patient in dorsolithotomy position, I placed a 21 Cameroonian cystoscope with 30 degree lens. He has a healthy appearing urethra and a moderately enlarged prostate with a heavily trabeculated bladder. There were no tumors or other abnormalities around the bladder. Full inspection was conducted with a 30 and 70 degree lens. Ureteral orifices were identified in orthotopic position and a sensor wire was utilized to access the right kidney. I then placed a 6 Cameroonian open-ended catheter over the wire and placed it to 26 cm from the UO. I excluded this catheter and reentered the bladder and perform the same procedure on the left. I then utilized a Landa adapter and a 16 Cameroonian Tong catheter to connect the system and drained it. The right and left ureters were marked appropriately. Of note, shortly after initial placement the ureteral catheters were incidentally dislodged with movement of the Tong catheter, I did replace these in the same fashion. They were then fixed to the urethral catheter with an umbilical tape. Patient remained in very stable condition and was reprepped and draped for the subsequent laparoscopic procedure. Plan will be to remove 1 catheter shortly after surgery and the second within 24 hours if not removing both immediately after surgery. Coding Additional Codes Date of Service ([email or web address])
[2024-12-16] MEDS ORDERED: ONDANSETRON INJ 2 MG/ML 2 ML VIAL ONE (10:54)
[2024-12-16] MEDS ORDERED: KETOROLAC 30 MG/ML VIAL ONE (10:54)
[2024-12-16] MEDS ORDERED: SUGAMMADEX SODIUM 200 MG/2 ML VIAL IV ONE (10:54)
[2024-12-16] MEDS: BUPIVACAINE 0.5 % 5 MG/1 ML MPF 30ML VIAL ONE (10:56)
[2024-12-16] MEDS: BUPIVACAINE LIPOSOME 1.3% 266 MG/20 ML VIAL ONE (10:56)
--- NOTE | 2024-12-16 11:16 | Post Operative Brief Note ---
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 Post-Op Diagnosis: Same, severe sigmoid colon diverticulitis and left colon diverticulitis with inflammation and thickening of mid ileum with fistulization to sigmoid colon I identified the patient and participated in the time-out.: Yes Procedure Operation Date: 12/16/24 07:30 Actual Procedures p Diagnostic Laparoscopy; Exploratory Laparotomy, Sigmoid Splenic Flexure Mobilization, Small Bowel Resection and Anastamosis with Colostomy(Not Applicable) - Paradise Tillman MD s Cystoscopy Bilateral Stents(Not Applicable) - Eulogio Singh MD Surgeon Paradise Tillman MD Knuckler Esme Malik PA-C Estimated Blood Loss 100 Findings Consistent with Post-Op Diagnosis Perforated sigmoid and left colon diverticulitis with small bowel matting and thickening and fistulization to small bowel at the level of mid ileum. Fluids 1100 ml Specimens Specimen Description: A. Sigmoid Bowel B. Illium Drains Obed Drain and Tong Catheter (Inserted at end of cysto procedure by Dr. Singh; 16fr; 10cc in balloon) Anesthesia Type General Regional Complications none none Disposition Disposition: Recovery Room
--- NOTE | 2024-12-16 11:18 | Operative Report ---
PG Post Operative Report Pre & Post Diagnosis Operation Date: 12/16/24 07:30 Pre-Op Diagnosis: Perforation of sigmoid colon due to diverticulitis Post-Op Diagnosis: Perforation of sigmoid colon due to diverticulitis, with severe left colon and sigmoid colon diverticulitis with severe thickening and inflammation of mid ileum with fistulization to sigmoid colon I identified the patient and participated in the time-out.: Yes Procedure Operation Date: 12/16/24 07:30 Actual Procedures p Diagnostic Laparoscopy; Exploratory Laparotomy, Sigmoidectomy with end colostomy (Janett's procedure) Splenic Flexure Mobilization, Small Bowel Resection and Anastomosis- Paradise Tillman MD s Cystoscopy Bilateral Stents(Not Applicable) - Eulogio Singh MD Surgeon Paradise Tillman MD Image Consultant Esme Malik PA-C Estimated Blood Loss 100 Findings Consistent with Post-Op Diagnosis Fluids 1200ml Specimens Sigmoid colon and ileum Drains 19 Mauritanian Obed drain in the pelvis Anesthesia Type General Regional Complications None Disposition Disposition: Recovery Room Indications This is a 64-year-old male patient with complicated 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 This is progressed from his prior complicated diverticulitis and has impeded his ability to proceed with oncologic resection of his lung cancer. In addition, this patient is in significant amount of pain and discomfort and has infectious complications from this diverticulitis along with being immunosuppressed. Had a lengthy discussion with the patient and started regarding surgical treatment for this given that it appears that he has failed nonoperative management. Plan will be for laparoscopic, possible open resection of the sigmoid colon with anastomosis, possible small bowel resection with anastomosis, possible ostomy if indicated, especially with the patient's immunocompromised condition and the active inflam mation/infection. This will be further assessed in the operating room. Risks of procedure were discussed with the patient and they include bleeding, infection, injury to surrounding structures, anastomotic leak, need for further procedures, and cardiopulmonary events that can occur. Alternatives include no procedure, which the patient declines. Patient wishes to proceed with surgery. All questions were answered. Plan will also be for urology to perform cystoscopy and placed bilateral ureteral catheters to assist with identifying and protecting the ureters bilaterally. Description of Procedure Informed consent was verified and site of surgery was verified and the patient was brought back to operating room. General anesthesia was administered. He was in the lithotomy position. A nasogastric tube was placed. The patient's arms were tucked bilaterally. Urology had come in person and perform cystoscopy and placed bilateral ureteral catheters and Tong catheter. The patient's abdomen and pelvis were prepped and draped in the usual sterile fashion. A surgical timeout was performed and there were no issues. Next, an infraumbili slo incision was made and dissection was carried out and the abdominal cavity was entered. The abdomen was inspected. The small bowel was very massively dilated and visualization was poor. Also on laparoscopy, possible enteric contents were visualized at the level of the sigmoid colon. Due to this, decision was made to convert to an open procedure by lengthening the laparoscopic incision superiorly and inferiorly. Next, the abdomen was inspected, the mid ileum was seen to be very inflamed and thickened and adhered to the sigmoid colon. This was gently as the sigmoid colon and left colon and splenic flexure were mobilized. An abscess cavity was also identified that was irrigated and suctioned and the small bowel was gently from the sigmoid colon. After this, the small bowel was seen to be matted and adhesed to itself in various portions and were extremely thickened and inflamed. This was gently and the fistula tract was likely palpated in the midportion of this. The small bowel was ran from the ileocecal valve to the ligament of Treitz and there were no other concerning findings. Next, the sigmoid colon was mobilized and was seen to be extremely inflamed and thickened with extensive diverticular disease extending upward into the left colon as well. There was a large amount of retained stool as well. Next, a line of transection was identified at the level of the sigmoid colon going into the rectum which was identified by the splaying of the tinea coli and the sacral premonitory. This was transected using the 80 mm JOSSUE stapler as well as the TA stapler. 2-0 Prolene was used to reinforce the staple line as well as to rosanne the rectal stump. Next, the proximal portion of the line of transection of the colon was identified at the distal left colon and this was also transected using the 80 mm JOSSUE stapler. The mesentery was divided using the LigaSure device as well as suture ligation with care taken to avoid injury to any structures including the ureters which were palpated bilaterally. Next, the specimen was removed off the field. Next, the lines of transection were identified in the small bowel, where there was healthy bowel proximal and distal to the area of inflammation and thickening and the 80 mm JOSSUE stapler was used to transect the bowel at these portions. The mesentery was divided using the LigaSure device and the specimen was removed off the field. Next, a [id number] functional end-to-end anastomosis was created by opening the antimesenteric ends of the small bowel and using the 80 mm JOSSUE stapler to create the anastomosis and closing the common enterotomy using the 45 mm JOSSUE stapler with 3-0 Vicryl suture to reinforce the staple lines as well as to take tension off the staple line as well as to close the mesenteric defect. Due to the intra-abdominal contamination as well as the inflammation and large amount of stool in the sigmoid and left colon, decision was made to perform an end colostomy. The abdomen was copiously irrigated and suctioned and a 19 Mauritanian Obed drain was placed in the pelvis and secured at the right lower quadrant. Next, a circumferential incision was made in the left mid abdomen and the fascia was divided and the abdominal muscles were and the peritoneum was opened and the ostomy was brought out and secured. Next, the fascia of the midline incision was closed with 0 looped PDS and the skin was closed with skin janie. Next, the ostomy was matured in a Gayathri fashion using 3-0 Vicryl suture. Anesthesia performed tap block at the end of the case and sterile dressing was applied and the patient was weaned off anesthesia and transferred to recovery in stable condition. The ureteral catheters were removed at the end of the case. I attest to the content of the Intraoperative Record and any orders documented therein. Any exceptions are noted below.
--- NOTE | 2024-12-16 11:39 | Surgery Consultation ---
Date of Consultation December 15, 2024 History of Present Illness Reason for Consultation: DUPLICATE ERROR, PLEASE SEE OTHER NOTE Attending Physician: Melba Matos MD Allergies Allergy/AdvReac Type Severity Reaction Status Date / Time strawberry Allergy Mild Rash Verified 12/13/24 18:56 Iodinated Contrast Media AdvReac Intermediate Nausea Verified 12/13/24 18:56 codeine AdvReac Unknown "Sour Verified 12/13/24 18:56 stomach" Home Medications Medication Instructions Recorded Confirmed Type No Known Home Medications 12/13/24 12/13/24 History Patient History Medical History Perforation of sigmoid colon due to diverticulitis ASCVD (arteriosclerotic cardiovascular disease) mild-mod coronary artery calcifications seen on PET imaging 07/2024 Prediabetes Adenocarcinoma of lung 07/15/24 COPD with emphysema Hx of chronic bronchitis Blood pressure elevated without history of HTN Hx History of alcohol abuse Surgical History Port-A-Cath in place (08/24/24) Insertion of Access Port with Fluoroscopy(Not Applicable) - Jorge Valle DO, FACS History of bronchoscopy bronchoscopy, EBUS 07/13/24; GA: MAC#3, ETT#8.5, Gr View 1 Hx of colonoscopy 2014 History of tympanoplasty of right ear Vasectomy status History of surgery on lower extremity metal romelia in left leg Family History Mother Breast cancer Grandmother (Paternal) Myocardial infarction Father Diabetes Heart disease Other Colorectal cancer Denies family history of Ovarian cancer Prostate cancer Social History Smoking Status: Never smoker Tobacco Type: Smokeless Tobacco (Dip or Chew) Age Started Using Tobacco: 12; Age Quit Using Tobacco: 64; packs per day: 1; Second Hand Exposure: No; Do You Dip or Chew Tobacco: Yes; Tobacco Cessation Education Requested by Patient: No Hx Alcohol Use: No Hx Substance Use: Yes Non-Prescribed Medications: Marijuana Last Used Substan ce: Days (ago) Last Used Substance Other:: last used marijuana 3 days ago Preferred Language: Haitian Communication Ability: Effective Visual Impairment: No Limitations Hearing Ability: Hard of Hearing Hair Cutter Required: No Beliefs That Will Affect Care: None marital status: Current Living Situation: Alone current occupational status: retired How many Children do You have: 6 Other Information That Helps Us Care for You: No Feels Safe at Home: Yes Safety Concerns: Feels Safe At This Time Diet: regular Diet Comment: regular caffeine: Yes during the past year weight has: remained stable Dental Care, Regularly: No Physical Activity Frequency: Daily Seatbelt Use: always Sunscreen Use: Yes Assistive Devices: None Results & Data Vital Signs (Past 12 Hours) Vital Signs Temp Pulse Resp BP Pulse Ox O2 Del Method 12/15/24 08:23 Room Air 12/15/24 07:18 37.2 C 87 18 125/82 92 Room Air 12/14/24 23:10 37.3 C 79 18 121/77 91 Room Air PG Care Time/CCT Total # of Minutes Spent Total Time Spent with Patient: Total time spent is greater than 50% in coordination of care (as documented) at patient's floor/unit and/or counseling patient: Coding Level of Care Code None
[2024-12-16] MEDS: METOPROLOL TARTRATE 1 MG/ML VIAL IV ONE (12:00)
[2024-12-16] MEDS: METOPROLOL TARTRATE 1 MG/ML VIAL IV STA (12:04)
[2024-12-16] MEDS ORDERED: PROMETHAZINE HCL 6.25 MG in SODIUM CHLORIDE 0.9% 50 ML IV PRN (12:15)
[2024-12-16] MEDS ORDERED: ONDANSETRON INJ 2 MG/ML 2 ML VIAL IV PRN (12:15)
[2024-12-16] MEDS ORDERED: ATROPINE SULFATE 0.1 MG/ML 10ML SYR IV PRN (12:15)
[2024-12-16] MEDS ORDERED: HYDROmorphone INJ 2 MG/ML SYR/VIAL IV PRN (12:15)
--- NOTE | 2024-12-16 12:39 | Anesthesiology Progress Note ---
Date of Service December 16, 2024 Anesthesia Post Procedure Vital Signs Vital Signs: Temp Pulse Pulse Pulse Resp BP BP 12/16/24 12:35 36.6 C 73 12 12/16/24 12:25 76 12 12/16/24 12:15 78 12 12/16/24 12:05 83 12 12/16/24 12:00 103 H 175/111 H 12/16/24 11:55 104 H 16 12/16/24 11:45 103 H 14 12/16/24 11:35 104 H 16 12/16/24 11:27 36.1 C L 104 H 12 12/16/24 09:54 12/16/24 06:59 36.6 C 84 20 113/78 12/15/24 23:15 37.6 C H 86 16 117/83 12/15/24 20:11 12/15/24 15:41 12/15/24 15:21 37.5 C 96 H 16 116/72 BP Pulse Ox O2 Del Method O2 Flow Rate 12/16/24 12:35 124/75 97 Oxymask 2 12/16/24 12:25 139/85 96 Oxymask 2 12/16/24 12:15 162/101 H 97 Oxymask 2 12/16/24 12:05 172/106 H 96 Oxymask 2 12/16/24 12:00 12/16/24 11:55 175/111 H 94 Oxymask 2 12/16/24 11:45 170/107 H 98 Oxymask 3 12/16/24 11:35 161/113 H 99 Oxymask 4 12/16/24 11:27 169/120 H 99 Oxymask 6 12/16/24 09:54 Nasal Cannula 2 12/16/24 06:59 97 Nasal Cannula 2 12/15/24 23:15 97 Nasal Cannula 2 12/15/24 20:11 Nasal Cannula 2 12/15/24 15:41 95 Nasal Cannula 2.5 12/15/24 15:21 84 L Room Air Pain Intensity Left Lower Abdomen: Pain Intensity: 7 Abdomen: Pain Intensity: 6 Transfer of Care Handoff Completed per policy Notes Mental Status: alert / awake / arousable Patient Amnestic to Procedure: Yes Nausea / Vomiting: adequately controlled Pain: adequately controlled Airway Patency, RR, SpO2: stable & adequate BP & HR: stable & adequate Hydration State: stable & adequate Anesthetic Complications: no major complications apparent
[2024-12-16] MEDS: MAGNESIUM SULFATE / D5W 1 GM/100 ML BAG IV ONE ×2 (13:08→15:43)
[2024-12-16] MEDS: LACTATED RINGER'S 1,000 ML IV SCH (13:10)
[2024-12-16] MEDS: ACETAMINOPHEN 1,000 MG/100 ML VIAL IV SCH (13:17)
--- NOTE | 2024-12-16 14:50 | Hospitalist Progress Note ---
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 #Perforated acute sigmoid diverticulitis with possible fistula to the ileum CT showed enteritis and esophagitis and later found to have acute perforated sigmoid diverticulitis. With leukocytosis, WBC 20.43 with neutrophil predominance on admission. Started on IV Zosyn, made NPO and placed on PPN. Appreciate Colorectal Surgery and GI recommendations. Now s/p Janett procedure and SBR with reanastomosis with Dr. Tillman on 12/16. Colostomy, surgical drain, NG tube, and Tong catheter remain in place. Had bilateral ureteral stents placed and removed intraoperatively by urology. -keep NPO and give maintenance fluids postoperatively on top of PPN fluids - Continue pain control with IV Dilaudid, IV Tylenol-if pain not controlled, may need PUMP TESTER pump -he will eventually need a colonoscopy as never had one after last diverticulitis Continue Zofran as needed for nausea continue IV Protonix twice daily for possible esophagitis seen on CT- needs EGD as an outpatient -Continue PPN-follow daily labs with CBC, CMP, magnesium, phosphorus Greatly appreciate colorectal surgery postoperative management #Acute respiratory failure with hypoxemia2/2 abd pain and poor inspiratory effort, ongoing postoperatively -Continue pain control -encouraged ICS -continue supplemental O2 as needed to keep POx> 90% and wean off as tolerated #Hypomagnesemiachronic, mag 1.5 on admission, other electrolytes and renal function stable. Patient denies any recent vomiting and diarrhea. Replaced and improved but low normal -give 1 g IV magnesium Trend magnesium and renal panel in the a.m. #left upper lobe adenocarcinoma of lungfollows with Dr. [facility] and completed 4 rounds of chemotherapy; reportedly last dose of chemotherapy was 11/24. Was to have surgical resection and hernandez dissection 12/14 in [place]. Will need to be rescheduled after recovers from bowel surgery #History of urinary retentionHx chronic bladder outlet obstruction. Required Tong catheter during recent admission in September. Not in retention at time of admission. Now with Tong catheter placed on 12/16 intraoperatively for ex lap-remains in place #Abdominal aortic aneurysmpatient noted history of [address] noted 3.0 x 2.9 cm as well as right common iliac aneurysm measuring 2.5 cm. Continue to follow in outpatient setting VTE ppx: Lovenox placed on hold for surgery, restart when okay with surgery Dispo: med surg, continued stay Admission and Anticipated Discharge Date Admission Date: December 14, 2024 Subjective Patient seen an hour and a half after returning from the PACU from his exploratory laparotomy with sigmoidectomy with end colostomy and small bowel resection with anastomosis. He was drowsy but woke up and said he was having pain in the abdomen but overall was feeling better. About an hour later, the nurse texted asking for extra pain medication as the patient's pain had worsened to an 8 out of 10 and it had only been 2 hours since his last Dilaudid dose. Otherwise no acute concerns. I discussed his care with the surgery PA Physical Exam Constitutional: WD/WN, vitals as above ENMT: NG tube in place draining green fluid Neck: trachea midline, no thyromegaly Respiratory: normal respiratory effort, lungs clear to auscultation no cough Cardiovascular: RRR, no murmur, no edema Chest (Breasts): Chest: normal inspection of chest Gastrointestinal (Abdomen): Inspection/Auscultation: + abdomen abnormal to inspection (Large dressing over entire abdomen C/D/I, LLQ colostomy present) Percussion/Palpation: + abdomen tender (Diffusely) and abdomen soft; no guarding Musculoskeletal: Extremities: extremities normal to inspection; no cyanosis and no clubbing Skin: no rashes, warm and dry Neurologic: moves all extremities Psychiatric: Orientation: + not alert (Drowsy but able to answer questions) Genitourinary: Tong catheter placed Lymphatic: no lymphedema Results & Data Results & Data Vital Signs (Past 12 Hours) Vital Signs Temp Pulse Pulse Pulse Resp BP BP 12/16/24 14:13 12/16/24 12:45 72 12 12/16/24 12:35 36.6 C 73 12 12/16/24 12:25 76 12/16/24 12:15 78 12 12/16/24 12:05 83 12 12/16/24 12:00 103 H 175/111 H 12/16/24 11:55 104 H 16 12/16/24 11:45 103 H 14 12/16/24 11:35 104 H 16 12/16/24 11:27 36.1 C L 104 H 12 12/16/24 09:54 12/16/24 06:59 36.6 C 84 20 113/78 BP Pulse Ox O2 Del Method O2 Flow Rate 12/16/24 14:13 Nasal Cannula 2 12/16/24 12:45 136/80 98 Oxymask 2 12/16/24 12:35 124/75 97 Oxymask 2 12/16/24 12:25 139/85 96 Oxymask 2 12/16/24 12:15 162/101 H 97 Oxymask 2 12/16/24 12:05 172/106 H 96 Oxymask 2 12/16/24 12:00 12/16/24 11:55 175/111 H 94 Oxymask 2 12/16/24 11:45 170/107 H 98 Oxymask 3 12/16/24 11:35 161/113 H 99 Oxymask 4 12/16/24 11:27 169/120 H 99 Oxymask 6 12/16/24 09:54 Nasal Cannula 2 12/16/24 06:59 97 Nasal Cannula 2 Laboratory Results CBC, BMP, magnesium, phosphorus reviewed PG Care Time/CCT Total # of Minutes Spent Total Time Spent with Patient: Total time spent is greater than 50% in coordination of care (as documented) at patient's floor/unit and/or counseling patient: Coding Level of Care Code 99644 SUB INP/OBS CARE 3/50MIN Diagnoses Perforation of sigmoid colon due to diverticulitis K57.20 Acute respiratory failure with hypoxia J96.01 Hypomagnesemia E83.42
[2024-12-16] MEDS: HYDROmorphone INJ 0.5 MG/0.5 ML SYR IV STA (15:36)
[2024-12-16] MEDS: CLINOLIPID 20% IV FAT EMULSION 250 ML IV SCH (15:48)
[2024-12-16] MEDS: CENTRAL TPN IV SCH (15:48)
[2024-12-16] MEDS: [UNRECOGNIZED DRUG - OTHER] IV SCH (15:48)
[2024-12-16] MEDS: DOCUSATE SODIUM 100 MG CAP PO SCH (21:17)
[2024-12-17 06:34] LABS: Hematocrit (blood only) 28.7 % (42.0-52.0); Hemoglobin 9.8 g/dl (14.0-18.0); Immature Granulocytes # (auto) 0.12 K/uL (0.01-0.20); Immature Granulocytes % (auto) 0.7 %; Mean Corpuscular Hemoglobin 33.4 pg (25.0-34.0); Mean Corpuscular Volume 98.0 fL (80.0-100.0); Platelet Count 175 K/uL (130-400); RDW Standard Deviation 54.5 fL (36.4-46.3); Red Blood Count 2.93 M/uL (4.70-6.10); White Blood Count 16.48 K/ul (4.8-10.8)
[2024-12-17 07:02] LABS: Alanine Aminotransferase 7.0 U/L (7-52); Alkaline Phosphatase 46.0 U/L (34-104); Anion Gap 4.0 (3-11); Bilirubin,Total 0.6 mg/dl (0.2-1.0); Blood Urea Nitrogen 21.0 mg/dl (6-23); Calcium 8.1 mg/dl (8.6-10.3); Carbon Dioxide 29.0 mmol/L (21-32); Chloride 103.0 mmol/L (98-107); Creatinine Clr Calc Pharmacy 89.2 ml/min; Glucose 179.0 mg/dl (70-99(Fasting)); Magnesium 2.0 mg/dl (1.7-2.4); Potassium 4.4 mmol/L (3.5-5.1); Sodium 136.0 mmol/L (136-145); Total Protein 5.3 gm/dl (6.0-8.3)
[2024-12-17] MEDS: ASCORBIC ACID 500 MG TAB PO SCH (08:04)
[2024-12-17] MEDS: HYDROmorphone INJ 0.5 MG/0.5 ML SYR IV PRN (08:05)
--- NOTE | 2024-12-17 09:40 | Surgery Progress Note ---
Date of Service December 17, 2024 Assessment & Plan (1) History of open sigmoidectomy: Plan: POD#1 open sigmoid colon resection, creation of colostomy, and partial small bowel resection with anastomosis WBC 16.4, Hbg 9.8, K 4.4, Cr .7. Vitals stable, on 2 liters supplemental O2 Expected post op pain present. Surgical dressings are c/d/i. RADHA drain is serosang. Ostomy is viable without evidence of return of bowel function NGT in place, can consider removal possibly later today if starts passing gas through bag May d/c sherman Start DVT ppx in form of lovenox encourage OOB at least TID in addition to pulmonary toilet. PT/OT ordered Is on PPN for nutrition Admission and Anticipated Discharge Date Admission Date: December 14, 2024 Subjective Patient feeling okay. Some sore throat from NGT and expected post op discomfort noted. No n/v. no bowel function Physical Exam Physical Exam: awake/alert, no distress Respiratory: on supplemental O2 Gastrointestinal (Abdomen): Inspection/Auscultation: + abdominal surgical incision (surgical dressings c/d/i) and + abdominal surgical drain present (serosang) Percussion/Palpation: + abdomen tender (expected post op discomfort) and abdomen soft + ostomy pink and viable, scant sweat in bag, no gas/stool. Results & Data Vital Signs (Past 12 Hours) Vital Signs Temp Pulse Pulse Resp BP Pulse Ox O2 Del Method 12/17/24 07:13 97.9 F 67 18 114/65 97 Nasal Cannula 12/17/24 03:05 97.7 F 72 16 126/71 96 Nasal Cannula 12/16/24 23:24 98.1 F 67 16 105/67 99 Nasal Cannula O2 Flow Rate 12/17/24 07:13 2 12/17/24 03:05 1 12/16/24 23:24 2 PG Care Time/CCT Total # of Minutes Spent Total Time Spent with Patient: Total time spent is greater than 50% in coordination of care (as documented) at patient's floor/unit and/or counseling patient: Coding Level of Care Code 00068 Post Operative Follow-Up Diagnoses History of open sigmoidectomy Z98.890; Z90.49
--- NOTE | 2024-12-17 11:45 | Hospitalist Progress Note ---
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 #Perforated acute sigmoid diverticulitis with possible fistula to the ileum CT showed enteritis and esophagitis and later found to have acute perforated sigmoid diverticulitis. With leukocytosis, WBC 20.43 with neutrophil predominance on admission. Started on IV Zosyn, made NPO and placed on PPN. Appreciate Colorectal Surgery and GI recommendations. Now s/p Janett procedure and SBR with reanastomosis with Dr. Tillman on 12/16. Colostomy, surgical RADHA drain, NG tube, and Tong catheter remain in place. Had bilateral ureteral stents placed and removed intraoperatively by urology. Working on pain control, no return of ostomy/bowel function yet. -keep NPO and continue maintenance fluids postoperatively on top of PPN fluids - Continue pain control with IV Dilaudid, IV Tylenol-if pain not controlled, may need [employer] pump - DC Tong catheter and perform trial of void - Possible DC of NG tube later if has gas in the colostomy bag -he will eventually need a colonoscopy as never had one after last diverticulitis Continue Zofran as needed for nausea continue IV Protonix twice daily for possible esophagitis seen on CT- needs EGD as an outpatient -Continue PPN-follow daily labs with CBC, CMP, magnesium, phosphorus Greatly appreciate colorectal surgery postoperative management #Acute respiratory failure with hypoxemia2/2 abd pain and poor inspiratory effort, ongoing postoperatively -Continue pain control -encouraged ICS -continue supplemental O2 as needed to keep POx> 90% and wean off as tolerated #Hypomagnesemiachronic, mag 1.5 on admission, other electrolytes and renal function stable. Patient denies any recent vomiting and diarrhea. Replaced and now normal Trend magnesium and renal panel in the a.m. #left upper lobe adenocarcinoma of lungfollows with Dr. [facility] and completed 4 rounds of chemotherapy; reportedly last dose of chemotherapy was 11/24. Was to have surgical resection and hernandez dissection 12/14 in [place]. Will need to be rescheduled after recovers from bowel surgery #History of urinary retentionHx chronic bladder outlet obstruction. Required Tong catheter during recent admission in September. Not in retention at time of admission. Now with Tong catheter placed on 12/16 intraoperatively for ex lap -Discontinue Tong catheter 12/17, perform trial of void - May need tamsulosin given history of retention in the past if fails trial of void #Abdominal aortic aneurysmpatient noted history of [address] noted 3.0 x 2.9 cm as well as right common iliac aneurysm measuring 2.5 cm. Continue to follow in outpatient setting VTE ppx: Lovenox okay to resume on 12/17 Dispo: med surg, continued stay, mobilization needed Admission and Anticipated Discharge Date Admission Date: December 14, 2024 Subjective Patient reports ongoing abdominal pain at the site of incision but is improved somewhat from yesterday and with taking Dilaudid. Denies chest pains or shortness of breath, remains on 2 LNC O2. He has been unable to use incentive spirometer due to abdominal pain. Physical Exam Constitutional: WD/WN, vitals as above ENMT: NG tube in place draining yellow fluid Neck: trachea midline, no thyromegaly Respiratory: normal respiratory effort, lungs clear to auscultation Cardiovascular: RRR, no murmur, no edema Chest (Breasts): Chest: normal inspection of chest Gastrointestinal (Abdomen): Inspection/Auscultation: abdomen normal to inspection (ABD dressing C/D/I, LLQ colostomy present with bloody serous drainage), + abdomen distended and normal bowel sounds Percussion/Palpation: + abdomen tender (Diffusely) and abdomen soft; no guarding RADHA drain with serosanguineous drainage Musculoskeletal: Extremities: extremities normal to inspection; no cyanosis and no clubbing Skin: no rashes, warm and dry Neurologic: moves all extremities and awake; no focal motor deficits Psychiatric: A+Ox3, euthymic affect Genitourinary: Tong catheter in place draining clear yellow urine Lymphatic: no lymphedema Results & Data Results & Data Vital Signs (Past 12 Hours) Vital Signs Temp Pulse Pulse Resp BP Pulse Ox O2 Del Method 12/17/24 07:13 36.6 C 67 18 114/65 97 Nasal Cannula 12/17/24 03:05 36.5 C 72 16 126/71 96 Nasal Cannula O2 Flow Rate 12/17/24 07:13 2 12/17/24 03:05 1 Laboratory Results CBC, BMP, magnesium, phosphorus, LFTs, CRP reviewed PG Care Time/CCT Total # of Minutes Spent Total Time Spent with Patient: Total time spent is greater than 50% in coordination of care (as documented) at patient's floor/unit and/or counseling patient: Coding Level of Care Code 41004 SUB INP/OBS CARE 235MIN Diagnoses Perforation of sigmoid colon due to diverticulitis K57.20 Acute respiratory failure with hypoxia J96.01 Hypomagnesemia E83.42
[2024-12-17] MEDS ORDERED: GLUCOSE 40% GEL 15 GM TUBE PO PRN (13:45)
[2024-12-17] MEDS ORDERED: DEXTROSE 50% 50 ML SYRINGE IV PRN (13:45)
[2024-12-17] MEDS ORDERED: CARBOHYDRATES FOR HYPOGLYCEMIA PO PRN (13:45)
[2024-12-17] MEDS ORDERED: GLUCAGON FOR INJ 1 MG VIAL SQ PRN (13:45)
[2024-12-17] MEDS ORDERED: GLUCOSE 10 TAB/TUBE PO PRN (13:45)
[2024-12-17] MEDS: AA 8%/D14W 2L 1,297 ML in Central TPN bag 0 ML IV SCH (16:00)
[2024-12-17] MEDS: CLINOLIPID 20% IV FAT EMULSION 250 ML IV SCH (16:00)
[2024-12-17] MEDS: INSULIN ASPART PER UNIT CHARGE SC SCH (18:01)
[2024-12-17] MEDS: CHLORASEPTIC (PHENOL) 1.4% SOLN 180 ML BTL MT PRN (22:47)
[2024-12-18] MEDS ORDERED: Nursing to Pharmacy Communication SCH (04:30)
[2024-12-18 06:40] LABS: Hematocrit (blood only) 27.1 % (42.0-52.0); Hemoglobin 9.1 g/dl (14.0-18.0); Immature Granulocytes # (auto) 0.05 K/uL (0.01-0.20); Immature Granulocytes % (auto) 0.5 %; Mean Corpuscular Hemoglobin 33.5 pg (25.0-34.0); Mean Corpuscular Volume 99.6 fL (80.0-100.0); Platelet Count 161 K/uL (130-400); RDW Standard Deviation 54.3 fL (36.4-46.3); Red Blood Count 2.72 M/uL (4.70-6.10); White Blood Count 10.44 K/ul (4.8-10.8)
[2024-12-18 07:19] LABS: Anion Gap 5.0 (3-11); Blood Urea Nitrogen 18.0 mg/dl (6-23); Calcium 8.2 mg/dl (8.6-10.3); Carbon Dioxide 30.0 mmol/L (21-32); Chloride 102.0 mmol/L (98-107); Creatinine Clr Calc Pharmacy 100.6 ml/min; Glucose 170.0 mg/dl (70-99(Fasting)); Magnesium 1.6 mg/dl (1.7-2.4); Potassium 3.5 mmol/L (3.5-5.1); Sodium 137.0 mmol/L (136-145)
[2024-12-18] MEDS ORDERED: POTASSIUM PHOS 3 MMOL/1 ML INFUSION IV STA (09:21)
[2024-12-18] MEDS: METOCLOPRAMIDE HCL INJ 5 MG/ML 2 ML VIAL IV STA (09:25)
[2024-12-18] MEDS: MAGNESIUM SULFATE / D5W 1 GM/100 ML BAG IV SCH (09:45)
[2024-12-18] MEDS: POTASSIUM PHOSPHATE 15 MMOL in SODIUM CHLORIDE 0.9% 250 ML IV ONE (09:51)
--- NOTE | 2024-12-18 10:30 | Surgery Progress Note ---
Date of Service December 18, 2024 Assessment & Plan (1) History of open sigmoidectomy: Plan: Patient is POD#2 s/p open sigmoid colon resection, creation of colostomy, and partial small bowel resection with anastomosis by Dr. Tillman. -Still waiting return of bowel function, keep NPO and continue NGT for now, PPN for nutrition. Will also order a dose of Reglan today. -WBC 10.4 today, continue abx -Hemoglobin stable, continue Lovenox for chemical DVT ppx and SCDs -Patient had issues voiding freely since Tong was removed and needed straight cathed. Will plan to replace Tong at this time. -Electrolytes repleted this AM -Pain control as needed -Surgical dressing is c/d/i, johanna change tomorrow morning. RADHA in place, sanguinous output -Encourage OOB at least TID in addition to pulmonary toilet. Appreciate PT/OT -Appreciate medical management, surgery to continue to follow closely Admission and Anticipated Discharge Date Admission Date: December 14, 2024 Subjective Patient seen and evaluated this morning. Patient overall doing ok Remains NPO and continues on PPN for nutrition, still waiting return of bowel function, NGT in place with 500cc recorded output RADHA drain in place, 150cc output (sanguinous output) Tong was removed yesterday however patient needing to be straight cathed overnight VSS, afebrile, WBC 10.4 Mg 1.6 and phos 2.4 Hemodynamically stable Physical Exam Constitutional: WD/WN, vitals as above Respiratory: no respiratory distress and no labored breathing Cardiovascular: Rate/Rhythm: regular rate Gastrointestinal (Abdomen): Abdomen slightly distended, appropriate TTP over surgical site, +ostomy pink and viable, sweat in bag with no gas/stool present. NGT in place, gastric contents in canister RADHA drain in place with sanguinous output Results & Data Vital Signs (Past 12 Hours) Vital Signs Temp Pulse Resp BP BP Pulse Ox O2 Del Method 12/18/24 06:30 36.6 C 78 94 Room Air 12/18/24 00:35 77 16 123/74 94 Nasal Cannula 12/17/24 23:57 36.7 C 76 18 97/64 L 91 Room Air O2 Flow Rate 12/18/24 06:30 12/18/24 00:35 1 12/17/24 23:57 PG Care Time/CCT Total # of Minutes Spent Total Time Spent with Patient: Total time spent is greater than 50% in coordination of care (as documented) at patient's floor/unit and/or counseling patient: Coding [place] [address] Post Operative Follow-Up Patient Type Established History Problem Focused Exam Problem Focused Medical Decision Making Straight Forward Diagnoses History of open sigmoidectomy Z98.890; Z90.49
--- NOTE | 2024-12-18 14:39 | Hospitalist Progress Note ---
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 #Perforated acute sigmoid diverticulitis with possible fistula to the ileum CT showed enteritis and esophagitis and later found to have acute perforated sigmoid diverticulitis. With leukocytosis, WBC 20.43 with neutrophil predominance on admission. Started on IV Zosyn, made NPO and placed on PPN. Appreciate Colorectal Surgery and GI recommendations. Now s/p Janett procedure and SBR with reanastomosis with Dr. Tillman on 12/16. Colostomy, surgical RADHA drain, NG tube remain in place. Tong catheter removed and then replaced 12/18 for failed TOV. Had bilateral ureteral stents placed and removed intraoperatively by urology. Working on pain control, no return of ostomy/bowel function yet. -continue NPO and continue PPN - Continue pain control with IV Dilaudid, IV Tylenol-encouraged not to overuse as can worsen ileus -strongly encouraged to get OOB to chair and d/w RN -DC of NG tube once gas in the colostomy bag Continue Zofran as needed for nausea and gave reglan x 1 dose continue IV Protonix twice daily for possible esophagitis seen on CT- needs EGD as an outpatient -follow CBC, CMP, magnesium, phosphorus Greatly appreciate colorectal surgery postoperative management #Acute respiratory failure with hypoxemia2/2 abd pain and poor inspiratory effo rt, now resolved, on room air -Continue pain control -encouraged ICS #Hypomagnesemia/Hypophosphatemiaongoing -replace with IV magnesium again and give IV KPhos follow Mag in AM #left upper lobe adenocarcinoma of lungfollows with Dr. [facility] and completed 4 rounds of chemotherapy; reportedly last dose of chemotherapy was 11/24. Was to have surgical resection and hernandez dissection 12/14 in [place]. Will need to be rescheduled after recovers from bowel surgery #History of urinary retentionHx chronic bladder outlet obstruction. Required Tong catheter during recent admission in September. Now failed TOV 12/17 and Tong replaced 12/18 - start tamsulosin 0.4 mg po hs -trial of void in 1 week once more mobile and on flomax #Abdominal aortic aneurysmpatient noted history of [address] noted 3.0 x 2.9 cm as well as right common iliac aneurysm measuring 2.5 cm. Continue to follow in outpatient setting VTE ppx: Lovenox SQ, SCDs Dispo: med surg, continued stay Admission and Anticipated Discharge Date Admission Date: December 14, 2024 Subjective Pt reports he was not able to sleep at all last night. Still taking pain meds around the clock, was finally able to get some rest today. Had straight cath overnight for 900mL and then Tong replaced today for 900mL. He is willing to try to get OOB to chair today Physical Exam Constitutional: WD/WN, vitals as above Neck: trachea midline, no thyromegaly Respiratory: normal respiratory effort, lungs clear to auscultation no cough Cardiovascular: RRR, no murmur, no edema Chest (Breasts): Chest: normal inspection of chest Gastrointestinal (Abdomen): Inspection/Auscultation: abdomen normal to inspection (ABD dressing C/D/I, LLQ colostomy present with bloody serous drainage), + abdomen distended and + hypoactive bowel sounds Percussion/Palpation: + abdomen tender (Diffusely) and abdomen soft; no guarding Musculoskeletal: Extremities: extremities normal to inspection; no cyanosis and no clubbing Skin: no rashes, warm and dry Neurologic: moves all extremities and awake; no focal motor deficits Psychiatric: A+Ox3, euthymic affect Lymphatic: no lymphedema Results & Data Results & Data Vital Signs (Past 12 Hours) Vital Signs Temp Pulse Pulse Ox O2 Del Method 12/18/24 06:30 36.6 C 78 94 Room Air Laboratory Results CBC, BMP, Mag, phos, CRP reviewed PG Care Time/CCT Total # of Minutes Spent Total Time Spent with Patient: Total time spent is greater than 50% in coordination of care (as documented) at patient's floor/unit and/or counseling patient: Coding Level of Care Code 53077 SUB INP/OBS CARE 3/50MIN Diagnoses Perforation of sigmoid colon due to diverticulitis K57.20 Acute respiratory failure with hypoxia J96.01 Hypomagnesemia E83.42
[2024-12-18] MEDS: CENTRAL TPN IV SCH (16:00)
[2024-12-18] MEDS: CLINOLIPID 20% IV FAT EMULSION 250 ML IV SCH (16:00)
[2024-12-18] MEDS: [UNRECOGNIZED DRUG - OTHER] IV SCH (16:00)
[2024-12-18] MEDS: METOCLOPRAMIDE HCL INJ 5 MG/ML 2 ML VIAL IV ONE (16:04)
[2024-12-18] MEDS: TAMSULOSIN HCL 0.4 MG CAP PO SCH (22:55)
[2024-12-19 09:37] LABS: Hematocrit (blood only) 26.5 % (42.0-52.0); Hemoglobin 9.0 g/dl (14.0-18.0); Immature Granulocytes # (auto) 0.08 K/uL (0.01-0.20); Immature Granulocytes % (auto) 0.8 %; Mean Corpuscular Hemoglobin 33.6 pg (25.0-34.0); Mean Corpuscular Volume 98.9 fL (80.0-100.0); Platelet Count 186 K/uL (130-400); RDW Standard Deviation 53.1 fL (36.4-46.3); Red Blood Count 2.68 M/uL (4.70-6.10); White Blood Count 10.01 K/ul (4.8-10.8)
[2024-12-19 09:52] LABS: Alanine Aminotransferase 6.0 U/L (7-52); Albumin Globulin Ratio 1.0 (0.9-2); Alkaline Phosphatase 56.0 U/L (34-104); Anion Gap 6.0 (3-11); Bilirubin,Total 0.5 mg/dl (0.2-1.0); Blood Urea Nitrogen 17.0 mg/dl (6-23); Calcium 8.3 mg/dl (8.6-10.3); Carbon Dioxide 28.0 mmol/L (21-32); Chloride 102.0 mmol/L (98-107); Creatinine Clr Calc Pharmacy 113.7 ml/min; Globulin 2.8 gm/dl (2.5-4.0); Glucose 135.0 mg/dl (70-99(Fasting)); Magnesium 1.7 mg/dl (1.7-2.4); Potassium 3.5 mmol/L (3.5-5.1); Sodium 136.0 mmol/L (136-145); Total Protein 5.5 gm/dl (6.0-8.3)
--- NOTE | 2024-12-19 10:42 | Pharmacy Report ---
Pharmacy PN Follow-up Note - Date of Service December 19, 2024 - Subjective Patient is currently on day #5 of TPN for perforation of sigmoid colon due to diverticulitis. - Objective Height & Weight (Last Documented) Height 5 ft 10 in Weight 68.6 kg Diet Order(s) 12/16/24 12:59 NPO Intake & Ouput (24hrs) 12/18/24 12/19/24 12/20/24 06:59 06:59 06:59 Intake Total 3832 / 3832 3034.5 / 3034.5 100 / 100 Output Total 1954 / 1954 3275 / 3275 400 / 400 Balance 1877 / 1877 -240.5 / -240.5 -300 / -300 Selected Laboratory Results 12/19/24 08:23 Sodium 136 Potassium 3.5 Chloride 102 Carbon Dioxide 28 Anion Gap 6 BUN 17 Creatinine 0.62 BUN/Creatinine Ratio 27.4 H Glucose 135 H Calcium 8.3 L Phosphorus 3.2 Magnesium 1.7 Total Bilirubin 0.5 AST 11 L ALT 6 L Alkaline Phosphatase 56 - Assessment & Plan Assessment: POD #3--open sigmoid colon resection, creation of colostomy, and partial small bowel resection with anastomosis. No return of bowel/ostomy function yet. Plan: * For Day #5 of TPN administration, the following will be ordered: * Macronutrients: * Amino Acids: 96 grams/day * Dextrose: 168 grams/day * Lipids: 50 grams/day * Micronutrients: * TPN electrolytes: 20 mL/day Contains 35 mEq Na, 20 mEq K, 4.5 mEq Ca, 5 mEq Mg, 35 mEq Cl, 29.5 mEq Acetate per 20 mL * Sodium phosphate: 24 mMol/day * Sodium chloride: 80 mEq/day * Sodium acetate: 50 mEq/day * Potassium phosphate: 0 mMol/day * Potassium chloride: 20 mEq/day * Potassium acetate: 0 mEq/day * Magnesium sulfate: 12.18 mEq/day * Calcium gluconate: 0 mEq/day * Multivitamins: 10 mL/day * Trace elements: 1 mL/day * Thiamine: 100 mg/day * Folic Acid: 0 mg/day * Total volume of 1310 mL will be infused over 24 hours and will provide 1455 kcal/day * Labs will be ordered per PN protocol. * Pharmacy will follow and adjust PN orders on a daily basis. Thank you!
--- NOTE | 2024-12-19 11:00 | Hospitalist Progress Note ---
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 #Perforated acute sigmoid diverticulitis with possible fistula to the ileum CT showed enteritis and esophagitis and later found to have acute perforated sigmoid diverticulitis. With leukocytosis, WBC 20.43 with neutrophil predominance on admission. Started on IV Zosyn, made NPO and placed on PPN. Appreciate Colorectal Surgery and GI recommendations. Now s/p Janett procedure and SBR with reanastomosis with Dr. Tillman on 12/16. Colostomy, surgical RADHA drain, NG tube remain in place. Tong catheter removed and then replaced 12/18 for failed TOV. Had bilateral ureteral stents placed and removed intraoperatively by urology. Worth with gas in colostomy bag, bowel function returning. pain control improving - dc NGT and start small sips of clears - dc TPN after 12/19 bag runs out-only start maintenance IVFs after that if poor po intake - Continue pain control with IV Dilaudid, IV Tylenol-encouraged not to overuse opioids as can worsen ileus - again reinforced with nursin and patient to get OOB to chair Continue Zofran as needed for nausea continue IV Protonix twice daily for possible esophagitis seen on CT- needs EGD as an outpatient-eventually convert to po - follow CBC, BMP, magnesium, phosphorus in AM Greatly appreciate colorectal surgery postoperative management #Acute respiratory failure with hypoxemia2/2 abd pain and poor inspiratory effort, now resolved, on room air -Continue pain control -encouraged ICS #Hypomagnesemia/Hypophosphatemianow resolved after replacement -on TPN but now stopping that and advancing diet to clears follow Mag, Phos in AM #left upper lobe adenocarcinoma of lungfollows [facility]; reportedly last dose of chemotherapy was 11/24. Was to have surgical resection and hernandez dissection 12/14 in [place]. Will need to be rescheduled after recovers from bowel surgery #Urinary retentionHx chronic bladder outlet obstruction. Required Tong catheter during recent admission in September. Now failed TOV 12/17 and Tong replaced 12/18 - start tamsulosin 0.4 mg po hs -trial of void in 1 week around 12/25 once more mobile and on flomax #Abdominal aortic aneurysmpatient noted history of [address] noted 3.0 x 2.9 cm as well as right common iliac aneurysm measuring 2.5 cm. Continue to follow in outpatient setting VTE ppx: Lovenox SQ, SCDs Dispo: med surg, continued stay, progressing Admission and Anticipated Discharge Date Admission Date: December 14, 2024 Subjective Pt reports pain better controlled after pain meds. Now has gas in colostomy bag for first time. No nausea, no other concerns. Still has not been out of bed to chair since before surgery. I discussed his care with RN and with Colorectal Surgery Physical Exam Constitutional: WD/WN, vitals as above Neck: trachea midline, no thyromegaly Respiratory: normal respiratory effort, lungs clear to auscultation Cardiovascular: RRR, no murmur, no edema Chest (Breasts): Chest: normal inspection of chest Gastrointestinal (Abdomen): Inspection/Auscultation: abdomen normal to inspection (incisino w/ janie c/d/i,LLQ colostomy w/ bloody serous drainage,+gas) and normal bowel sounds Percussion/Palpation: + abdomen tender (Diffusely) and abdomen soft; no guarding Musculoskeletal: Extremities: extremities normal to inspection; no cyanosis and no clubbing Skin: no rashes, warm and dry Neurologic: moves all extremities and awake; no focal motor deficits Psychiatric: A+Ox3, euthymic affect Lymphatic: no lymphedema Results & Data Results & Data Vital Signs (Past 12 Hours) Vital Signs Temp Pulse Pulse Resp BP BP Pulse Ox 12/19/24 07:44 12/19/24 07:16 36.6 C 67 16 116/69 93 12/19/24 00:11 36.9 C 74 18 112/74 92 O2 Del Method 12/19/24 07:44 Room Air 12/19/24 07:16 Room Air 12/19/24 00:11 Room Air Laboratory Results CBC,BMP, Mag, phos reviewed PG Care Time/CCT Total # of Minutes Spent Total Time Spent with Patient: Total time spent is greater than 50% in coordination of care (as documented) at patient's floor/unit and/or counseling patient: Coding Level of Care Code 35814 SUB INP/OBS CARE 350MIN Diagnoses Perforation of sigmoid colon due to diverticulitis K57.20 Acute respiratory failure with hypoxia J96.01 Hypomagnesemia E83.42
[2024-12-19] MEDS: METOCLOPRAMIDE HCL INJ 5 MG/ML 2 ML VIAL IV ONE (11:39)
--- NOTE | 2024-12-19 11:45 | Surgery Progress Note ---
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 Improving, plan will be out of bed is much as possible today, remove NG tube, sips of liquids today, incentive spirometer, continue DVT prophylaxis and antibiotics, replace electrolytes as needed. Can Hep-Lock. Admission and Anticipated Discharge Date Admission Date: December 14, 2024 Subjective Patient is postop day 3 from De Souza's procedure and small bowel resection, is feeling improved today. Has not gotten out of bed much. Pain is well- controlled Review of Systems Review of Systems: All systems reviewed & are unremarkable except as noted in HPI & below Physical Exam Eyes: PERRL, conjunctivae normal, anicteric sclerae Respiratory: Bilateral rhonchi and harsh breath sounds, and some irritation and phlegm from NG tube Gastrointestinal (Abdomen): NG tube with minimal output, ostomy with some gas in bag, RADHA drain serosanguineous, abdomen is slightly distended, incisions healing well, ostomy viable and functional Results & Data Vital Signs (Past 12 Hours) Vital Signs Temp Pulse Pulse Resp BP BP Pulse Ox 12/19/24 07:44 12/19/24 07:16 36.6 C 67 16 116/69 93 12/19/24 00:11 36.9 C 74 18 112/74 92 O2 Del Method 12/19/24 07:44 Room Air 12/19/24 07:16 Room Air 12/19/24 00:11 Room Air Laboratory Results Labs reviewed PG Care Time/CCT Total # of Minutes Spent Total Time Spent with Patient: Total time spent is greater than 50% in coordination of care (as documented) at patient's floor/unit and/or counseling patient: Coding Level of Care Code 94811 Post Operative Follow-Up Diagnoses History of open sigmoidectomy Z98.890; Z90.49
[2024-12-19] MEDS: ACETAMINOPHEN 1,000 MG/100 ML VIAL IV PRN (15:58)
[2024-12-19] MEDS ORDERED: CENTRAL TPN IV SCH (16:00)
[2024-12-19] MEDS ORDERED: CLINOLIPID 20% IV FAT EMULSION 250 ML IV SCH (16:00)
[2024-12-19] MEDS ORDERED: [UNRECOGNIZED DRUG - OTHER] IV SCH (16:00)
[2024-12-19] MEDS: LACTATED RINGER'S 1,000 ML IV SCH (17:31)
[2024-12-19] MEDS ORDERED: Nursing to Pharmacy Communication SCH (19:15)
[2024-12-19] MEDS: INSULIN ASPART PER UNIT CHARGE SC SCH (21:03)
[2024-12-20 08:18] LABS: Hematocrit (blood only) 29.2 % (42.0-52.0); Hemoglobin 9.5 g/dl (14.0-18.0); Immature Granulocytes # (auto) 0.11 K/uL (0.01-0.20); Immature Granulocytes % (auto) 1.2 %; Mean Corpuscular Hemoglobin 32.0 pg (25.0-34.0); Mean Corpuscular Volume 98.3 fL (80.0-100.0); Platelet Count 223 K/uL (130-400); RDW Standard Deviation 52.3 fL (36.4-46.3); Red Blood Count 2.97 M/uL (4.70-6.10); White Blood Count 9.19 K/ul (4.8-10.8)
[2024-12-20 09:52] LABS: Anion Gap 11.0 (3-11); Blood Urea Nitrogen 12.0 mg/dl (6-23); Calcium 8.6 mg/dl (8.6-10.3); Carbon Dioxide 24.0 mmol/L (21-32); Chloride 102.0 mmol/L (98-107); Creatinine Clr Calc Pharmacy 106.8 ml/min; Glucose 109.0 mg/dl (70-99(Fasting)); Potassium 4.0 mmol/L (3.5-5.1); Sodium 137.0 mmol/L (136-145); Triglycerides 178.0 mg/dl (0-150)
--- NOTE | 2024-12-20 09:54 | Hospitalist Progress Note ---
Date of Service December 20, 2024 Assessment & Plan (1) Perforation of sigmoid colon due to diverticulitis: Plan: -s/p Janett procedure and SBR with reanastomosis -tolerating clears -advance diet as per surgery (2) Acute respiratory failure with hypoxia: Plan: -resolved, on room air (3) Hypomagnesemia: Plan: -repleated (4) Adenocarcinoma of lung: Plan: -[facility] and completed 4 rounds of chemotherapy; reportedly last dose of chemotherapy was 11/24. Was to have surgical resection and hernandez dissection 12/14 in [place]. 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 Dispo: med surg, continued stay, progressing Admission and Anticipated Discharge Date Admission Date: December 14, 2024 Subjective Pt with no events overnight, tolerating his clear liquid diet. Review of Systems Review of Systems: CONST: Negative for fever, body aches and chills. HENT: Negative for neck pain/stiffness, headache, congestion, sore throat, swelling. EYES: Negative for discharge/pain or vision changes. RESP: Negative for cough/hemoptysis and shortness of breath. CV: Negative chest pain, difficulty breathing, palpitations. ABD: Negative pain, nausea, vomiting. : Negative increase frequency, dysuria, blood in urine or stool. MUSC: Negative for muscle aches, edema. SKIN: Negative rash, lesions/sores. NEURO: Negative headache, dizziness, weakness. Physical Exam Physical Exam: GENERAL APPEARANCE NAD, activity normal for age, well developed/ well nourished, no cyanosis, pallor, or diaphoresis. EYES lids/conjunctiva normal. EARS/NOSE/THROAT Mucous membranes moist, nares normal, lips/teeth normal uvula midline without oral pharyngeal erythema, exudate or swelling TMs normal bilaterally. No lymphangitis/lymphedema. HEAD/NECK normocephalic atraumatic, no facial trauma, neck is supple. RESPIRATORY respiratory effort normal, speaks in full sentences, no tripod position, no accessory muscle use. Lungs clear to auscultation without rhonchi, wheezes, rales CARDIAC Regular rate and rhythm, no edema. ABDOMINAL Soft, ND/NT. No evidence of fluid wave. No pulsatile masses on exam, rebound tenderness, Chinchilla sign or pain over Mcburney's point. MUSCLES/EXTREMITIES No abnormal range of motion, no swelling. SKIN Warm, pink and dry. No rashes, dermatoses, petechiae or lesions. NEUROLOGICAL Speech is clear and appropriate. Normal level of consciousness. Gait and coordination are normal. 5/5 strength in all extremities. PSYCH Normal mood and affect. Judgement/competence is appropriate Results & Data Results & Data Vital Signs (Past 12 Hours) Vital Signs Temp Pulse Resp BP Pulse Ox O2 Del Method 12/20/24 07:28 36.8 C 66 18 118/72 96 Room Air 12/19/24 22:56 37.1 C 72 18 119/78 97 Room Air PG Care Time/CCT Total # of Minutes Spent Total Time Spent with Patient: Total time spent is greater than 50% in coordination of care (as documented) at patient's floor/unit and/or counseling patient: Coding Level of Care Code 95269 SUB INP/OBS CARE 2/35MIN Diagnoses Perforation of sigmoid colon due to diverticulitis K57.20 Acute respiratory failure with hypoxia J96.01 Hypomagnesemia E83.42 Adenocarcinoma of lung C34.90 Urinary retention R33.9
[2024-12-20 10:17] LABS: Magnesium 1.5 mg/dl (1.7-2.4)
--- NOTE | 2024-12-20 11:36 | Surgery Progress Note ---
<Statement entered by Paradise Tillman MD - 12/20/24 15:06> I independently saw the patient and I agree with the assessment and plan of care. 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 Vitals stable Ostomy viable w/ some gas noted in bag along with small amount of liquid stool Pt was started on clears, doing well with this thus far. will trial further diet advancement Abdomen with expected post op discomfort. incisions c/d/i with janie Tong was replaced yesterday; flomax added. will see if medicine agreeable to perform another void trial tomorrow will d/c RADHA drain today Continue IV abx Encouraged OOB ambulating, IS and pulmonary toilet possible d/c planning in next 24-48 hours Admission and Anticipated Discharge Date Admission Date: December 14, 2024 Subjective Patient feeling okay. + expected post op discomfort. now on clears, tolerating without n/v. some gas noted in ostomy. reports he has been ambulating Physical Exam Physical Exam: awake/alert, no distress Gastrointestinal (Abdomen): Inspection/Auscultation: + abdominal surgical incision (surgical dressings c/d/i) and + abdominal surgical drain present (serosang) Percussion/Palpation: + abdomen tender (expected post op discomfort) and abdomen soft RADHA drain serosang.. ostomy viable with gas and small liquid stool in bag Results & Data Vital Signs (Past 12 Hours) Vital Signs Temp Pulse Resp BP Pulse Ox O2 Del Method 12/20/24 07:30 Room Air 12/20/24 07:28 98.2 F 66 18 118/72 96 Room Air PG Care Time/CCT Total # of Minutes Spent Total Time Spent with Patient: Total time spent is greater than 50% in coordination of care (as documented) at patient's floor/unit and/or counseling patient: Coding Level of Care Code 89520 Post Operative Follow-Up Diagnoses History of open sigmoidectomy Z98.890; Z90.49
[2024-12-20] MEDS: ACETAMINOPHEN 1,000 MG/100 ML VIAL IV SCH (12:09)
[2024-12-21 08:46] LABS: Anion Gap 8.0 (3-11); Blood Urea Nitrogen 15.0 mg/dl (6-23); Calcium 8.6 mg/dl (8.6-10.3); Carbon Dioxide 26.0 mmol/L (21-32); Chloride 102.0 mmol/L (98-107); Creatinine Clr Calc Pharmacy 91.6 ml/min; Glucose 102.0 mg/dl (70-99(Fasting)); Magnesium 1.6 mg/dl (1.7-2.4); Potassium 3.9 mmol/L (3.5-5.1); Sodium 136.0 mmol/L (136-145)
[2024-12-21] MEDS: MAGNESIUM SULFATE / D5W 1 GM/100 ML BAG IV ONE (09:24)
--- NOTE | 2024-12-21 10:31 | Hospitalist Progress Note ---
Date of Service December 21, 2024 Assessment & Plan (1) Perforation of sigmoid colon due to diverticulitis: Plan: -s/p Janett procedure and SBR with reanastomosis -tolerating low fiber diet -advance diet as per surgery (2) Acute respiratory failure with hypoxia: Plan: -resolved, on room air (3) Hypomagnesemia: Plan: -repleated (4) Adenocarcinoma of lung: Plan: -[facility] and completed 4 rounds of chemotherapy; reportedly last dose of chemotherapy was 11/24. Was to have surgical resection and hernandez dissection 12/14 in [place]. 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 Dispo: med surg, continued stay, progressing D/C home once tolerating voiding trial Admission and Anticipated Discharge Date Admission Date: December 14, 2024 Subjective No events overnight. Pt tolerating diet. Tong still in place. Review of Systems Review of Systems: CONST: Negative for fever, body aches and chills. HENT: Negative for neck pain/stiffness, headache, congestion, sore throat, swelling. EYES: Negative for discharge/pain or vision changes. RESP: Negative for cough/hemoptysis and shortness of breath. CV: Negative chest pain, difficulty breathing, palpitations. ABD: Negative pain, nausea, vomiting. : Negative increase frequency, dysuria, blood in urine or stool. MUSC: Negative for muscle aches, edema. SKIN: Negative rash, lesions/sores. NEURO: Negative headache, dizziness, weakness. Physical Exam Physical Exam: GENERAL APPEARANCE NAD, activity normal for age, well developed/ well nourished, no cyanosis, pallor, or diaphoresis. EYES lids/conjunctiva normal. EARS/NOSE/THROAT Mucous membranes moist, nares normal, lips/teeth normal uvula midline without oral pharyngeal erythema, exudate or swelling TMs normal bilaterally. No lymphangitis/lymphedema. HEAD/NECK normocephalic atraumatic, no facial trauma, neck is supple. RESPIRATORY respiratory effort normal, speaks in full sentences, no tripod position, no accessory muscle use. Lungs clear to auscultation without rhonchi, wheezes, rales CARDIAC Regular rate and rhythm, no edema. ABDOMINAL Soft, ND/NT. No evidence of fluid wave. No pulsatile masses on exam, rebound tenderness, Chinchilla sign or pain over Mcburney's point. MUSCLES/EXTREMITIES No abnormal range of motion, no swelling. SKIN Warm, pink and dry. No rashes, dermatoses, petechiae or lesions. NEUROLOGICAL Speech is clear and appropriate. Normal level of consciousness. Gait and coordination are normal. 5/5 strength in all extremities. PSYCH Normal mood and affect. Judgement/competence is appropriate Results & Data Results & Data Vital Signs (Past 12 Hours) Vital Signs Temp Pulse Pulse Resp BP BP Pulse Ox 12/21/24 08:43 12/21/24 07:30 36.6 C 61 20 128/75 96 12/20/24 22:51 36.8 C 72 16 124/75 95 O2 Del Method 12/21/24 08:43 Room Air 12/21/24 07:30 Room Air 12/20/24 22:51 Room Air PG Care Time/CCT Total # of Minutes Spent Total Time Spent with Patient: Total time spent is greater than 50% in coordination of care (as documented) at patient's floor/unit and/or counseling patient: Coding Level of Care Code 32634 SUB INP/OBS CARE 2/35MIN Diagnoses Perforation of sigmoid colon due to diverticulitis K57.20 Acute respiratory failure with hypoxia J96.01 Hypomagnesemia E83.42 Adenocarcinoma of lung C34.90 Urinary retention R33.9
--- NOTE | 2024-12-21 10:54 | Surgery Progress Note ---
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 he is on bid colace He is tolerating low fiber diet at this time, some early satiety but no n/v Abdomen with expected post op discomfort. incisions c/d/i with janie Will give patient another void trial now that he has been started on flomax and see if he can void spontaneously Continue IV abx while in house Encouraged OOB ambulating, IS and pulmonary toilet possible d/c planning in next 24-48 hours Admission and Anticipated Discharge Date Admission Date: December 14, 2024 Subjective Patient feeling okay. Post op pain improving. He is tolerating a low fiber diet without nausea/vomiting but states he does feel full quickly. He is ambulating. + gas in ostomy bag Physical Exam Physical Exam: awake/alert, no distress Respiratory: normal respiratory effort Gastrointestinal (Abdomen): Inspection/Auscultation: + abdomen distended (mild) and + abdominal surgical incision (midline janie c/d/i) Percussion/Palpation: + abdomen tender (expected zoltan incisional discomfort to palpation ) and abdomen soft Results & Data Vital Signs (Past 12 Hours) Vital Signs Temp Pulse Resp BP Pulse Ox O2 Del Method 12/21/24 08:43 Room Air 12/21/24 07:30 97.9 F 61 20 128/75 96 Room Air PG Care Time/CCT Total # of Minutes Spent Total Time Spent with Patient: Total time spent is greater than 50% in coordination of care (as documented) at patient's floor/unit and/or counseling patient: Coding Level of Care Code 04531 Post Operative Follow-Up Diagnoses History of open sigmoidectomy Z98.890; Z90.49
[2024-12-22 07:21] LABS: Anion Gap 8.0 (3-11); Blood Urea Nitrogen 15.0 mg/dl (6-23); Calcium 8.8 mg/dl (8.6-10.3); Carbon Dioxide 26.0 mmol/L (21-32); Chloride 101.0 mmol/L (98-107); Creatinine Clr Calc Pharmacy 95.6 ml/min; Glucose 111.0 mg/dl (70-99(Fasting)); Magnesium 1.7 mg/dl (1.7-2.4); Potassium 3.7 mmol/L (3.5-5.1); Sodium 135.0 mmol/L (136-145)
--- NOTE | 2024-12-22 07:52 | Surgery Progress Note ---
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 Vitals stable Ostomy viable and functioning well with gas/stool in the bag Pt reports he feels comfortable with ostomy care and will also be sent home with home health Pain tolerable, incision c/d/i with midline janie, no signs of infection He is tolerating a diet, would remain on low fiber diet until follow up with the surgeon, may also continue BID colace Pt is voiding s/p sherman removal yesterday No need for further antibiotics upon discharge from our perspective Encouraged OOB ambulating, IS and pulmonary toilet D/c instructions reviewed, should follow up with the surgeon in 7-10 days for staple removal and post op check From our perspective patient stable for discharge to home today pending medicine's clearance Admission and Anticipated Discharge Date Admission Date: December 14, 2024 Subjective Patient is feeling well this AM. Tolerating a low fiber diet, no n/v. His ostomy is functioning with gas and stool in the bag. He has voided after sherman catheter removal. Pain controlled. Physical Exam Physical Exam: awake/alert, no distress Respiratory: normal respiratory effort Gastrointestinal (Abdomen): Inspection/Auscultation: + abdominal surgical incision (midline janie c/d/i without signs of infection) Percussion/Palpation: + abdomen tender (expected zoltan incisional discomfort to palpation) and abdomen soft ostomy is viable with + stool and gas in the bag Results & Data Vital Signs (Past 12 Hours) Vital Signs Temp Pulse Resp BP Pulse Ox O2 Del Method 12/21/24 23:38 98.0 F 66 20 133/80 96 Room Air PG Care Time/CCT Total # of Minutes Spent Total Time Spent with Patient: Total time spent is greater than 50% in coordination of care (as documented) at patient's floor/unit and/or counseling patient: Coding Level of Care Code 81788 Post Operative Follow-Up Diagnoses History of open sigmoidectomy Z98.890; Z90.49
[2024-12-22 08:14] VITALS: BP 108/72; PULSE 71; RESP 18; TEMP 98.1; O2SAT 98
--- NOTE | 2024-12-22 09:48 | Discharge Summary ---
Discharge Summary Date of Service December 22, 2024 Principal Dx & Hospital Course #1 = Principal Diagnosis (1) Perforation of sigmoid colon due to diverticulitis: -s/p Janett procedure and SBR with reanastomosis -tolerating low fiber diet -advance diet as per surgery (2) Acute respiratory failure with hypoxia: -resolved, on room air (3) Hypomagnesemia: -repleated (4) Adenocarcinoma of lung: -Follows with [facility]. [facility] and completed 4 rounds of chemotherapy; reportedly last dose of chemotherapy was 11/24. Was to have surgical resection and hernandez dissection 12/14 in [place] [employer]. 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 Dispo: med surg, continued stay, progressing D/C home once tolerating voiding trial Admission HPI Per Admitting Provider Patient with a perforated sigmoid diverticulitis who is now presenting for resection We have been approached to place perioperative ureteral catheters for safety Discharge Exam GENERAL APPEARANCE NAD, activity normal for age, well developed/ well nourished, no cyanosis, pallor, or diaphoresis. EYES lids/conjunctiva normal. EARS/NOSE/THROAT Mucous membranes moist, nares normal, lips/teeth normal uvula midline without oral pharyngeal erythema, exudate or swelling TMs normal bilaterally. No lymphangitis/lymphedema. HEAD/NECK normocephalic atraumatic, no facial trauma, neck is supple. RESPIRATORY respiratory effort normal, speaks in full sentences, no tripod position, no accessory muscle use. Lungs clear to auscultation without rhonchi, wheezes, rales CARDIAC Regular rate and rhythm, no edema. ABDOMINAL Soft, ND/NT. No evidence of fluid wave. No pulsatile masses on exam, rebound tenderness, Chinchilla sign or pain over Mcburney's point. MUSCLES/EXTREMITIES No abnormal range of motion, no swelling. SKIN Warm, pink and dry. No rashes, dermatoses, petechiae or lesions. NEUROLOGICAL Speech is clear and appropriate. Normal level of consciousness. Gait and coordination are normal. 5/5 strength in all extremities. PSYCH Normal mood and affect. Judgement/competence is appropriate Discharge Plan Discharge Items Patient Disposition: Home - Self-Care Reason For Visit: INTRACTABLE ABDOMINAL PAIN Discharge Diagnosis: acute diverticulitis with perforation sigmoidectomy, creation of colostomy, partial small bowel resection Condition on Discharge: Fair Activity: Per Instructions section Lifting: No more than 10 pounds Bathing Comment: may shower; no soaking in tubs/pools x 2 weeks Exercise/Sports: Wait until after follow-up appointment Driving/Machine Use: no driving while taking narcotics for pain Non-emergency contact: Primary Care Provider and Surgeon Call non-emergency contact if: you have any medication questions, your symptoms worsen, your pain is not controlled, your pain is worsening, your pain is unusual for you, you have a fever, your temperature is above 101.5, your wound has increased redness, your wound has increased drainage and your wound pain has increased Follow-up/Referrals: Cam Horowitz DO [Primary Care Provider] - Paradise Tillamn MD [Surgeon] - (please call to schedule follow up in the office in 1-2 weeks) Diet: Low Fiber Addtl Attending Provider Instructions: SPECIAL CARE INSTRUCTIONS: * You have janie in place that will be removed at your follow up appointment (about 14 days from your surgical procedure). If your wounds are not draining you may keep them open to air or if you wish for comfort may cover and change daily with dry gauze and medical tape. * Care for your Ostomy as you have been educated by the nursing staff at the hospital. You will also have home health come to your home for assistance. * Where your surgical drain was removed cover with dry gauze and tape and change daily until it is well healed and no longer leaking any fluid. * You may shower. NO soaking in pools or baths for 2 weeks * No lifting greater than 10lbs. No strenuous exercise until cleared by surgeon. Light walking is accepted. * No driving while taking narcotic pain medication; wait at least 3 days * No drinking alcohol while taking narcotic pain medication * May purchase a stool softener over the counter such as colace to take as needed 1-2x/daily. * May use Ibuprofen/Tylenol over the counter for pain as tolerated. Do not exceed 3grams of Tylenol per 24 hours * Expect some swelling and bruising. * Diet- low fiber diet until follow up with the surgeon Call your doctor if: * Temperature above 101 degrees, nausea/vomiting, fever/chills * Pain not relieved by pain medicine ordered * There is increased drainage or redness from any incision * You have any unanswered questions or concerns [phone]. FOLLOW UP VISIT: If not already scheduled, please call the office for a follow-up visit. Office Pending Studies at Discharge: Yes Studies:: surgical pathology Stand-Alone Forms: [facility], Smoking Cessation Medications and DC Order Prescriptions: New oxycodone 5 mg tablet 5 - 10 mg PO .[id number] PRN (Reason: pain, for initial therapy, max 6 tabs per day) Qty: 15 0RF tamsulosin 0.4 mg Capsule 0.4 mg PO HS Qty: 30 0RF Discharge Orders: Discharge Order (Routine); Ordered 12/22/24 Ordered By: Francis Eckert/Other Patient Handouts: Low-Fiber Diet Admission Data Admit Date/Time: 12/14/24 18:31 Attending Provider: Francis Jensen Admit Provider: Kush John Primary Care Provider: Cam Horowitz Other Providers: Kush John; Dinora Johnson Jr; Paradise Tillman Hospital Stay Data Consultations 12/13/24 21:08 ED Decision to Admit Stat 12/14/24 00:32 Consult Gastroenterology Routine 12/14/24 13:34 Consult General Surgery Stat 12/14/24 16:01 Consult General Surgery Routine Procedures Performed Operation Date: 12/16/24 07:30 Actual Procedures s Perioperative Placement of Bilateral Ureteral Catheters in Preparation for Partial Colectomy(Not Applicable) - Eulogio Singh MD p Exploratory Laparotomy, Sigmoidectomy with End Colostomy (Janett's procedure) Splenic Flexure Mobilization, Small Bowel Resection and Anastomosis(Not Applicable) - Paradise Tillman MD s Diagnostic Laparoscopy(Not Applicable) - Paradise Tillman MD Diagnostic Imagining Performed 12/13/24 17:57 CT abd pelvis IV con only Stat 12/16/24 10:18 US - OR guided needle placemen Routine Pending Results Patient Have Any Pending Studies at Discharge: Yes Discharge Instructions Given to Patient (Per Discharging Provider) SPECIAL CARE INSTRUCTIONS: * You have janie in place that will be removed at your follow up appointment (about 14 days from your surgical procedure). If your wounds are not draining you may keep them open to air or if you wish for comfort may cover and change daily with dry gauze and medical tape. * Care for your Ostomy as you have been educated by the nursing staff at the hospital. You will also have home health come to your home for assistance. * Where your surgical drain was removed cover with dry gauze and tape and change daily until it is well healed and no longer leaking any fluid. * You may shower. NO soaking in pools or baths for 2 weeks * No lifting greater than 10lbs. No strenuous exercise until cleared by surgeon. Light walking is accepted. * No driving while taking narcotic pain medication; wait at least 3 days * No drinking alcohol while taking narcotic pain medication * May purchase a stool softener over the counter such as colace to take as needed 1-2x/daily. * May use Ibuprofen/Tylenol over the counter for pain as tolerated. Do not exceed 3grams of Tylenol per 24 hours * Expect some swelling and bruising. * Diet- low fiber diet until follow up with the surgeon Call your doctor if: * Temperature above 101 degrees, nausea/vomiting, fever/chills * Pain not relieved by pain medicine ordered * There is increased drainage or redness from any incision * You have any unanswered questions or concerns [phone]. FOLLOW UP VISIT: If not already scheduled, please call the office for a follow-up visit. Office Total Time Total Time Spent Total Time Spent (In Minutes): 50 Coding Level of Care Code 24860 INP/OBS DISCH >30 MIN Diagnoses Perforation of sigmoid colon due to diverticulitis K57.20 Acute respiratory failure with hypoxia J96.01 Hypomagnesemia E83.42 Adenocarcinoma of lung C34.90 Urinary retention R33.9
== END 2024-12-22 11:13 | disposition home or self-care (01) | DRG 329 ==
LOC: ED 17:06 → 3N 17:06 → SUATTDRO 21:31 → 3N 23:53 → SUATTDRO 12-14 18:31